=== PATIENT | female | born 1955 | race Caucasian/White ===

== ENCOUNTER 2019-10-16 08:38 | Outpatient (CLI) | payer MEDICARE, BC, SELFPAY ==
--- NOTE | ~2019-10-16 | CT_ITS ---
EXAMINATION: CTA brain DATE: 10/16/2019 09:33 INDICATION: Headache. TECHNIQUE: Computed tomographic angiography (CTA) of the head was performed without and with 100 mL O mnipaque-350 intravenous contrast. Automated exposure control and iterative reconstruction technique were employed. The dose-length product was 1002.72 mGy-cm. Maximum intensity projection 3D reconstru ctions were created. Volume-rendered 3D reconstructions of the intracranial arteries were created by the technologist on a separate workstation. COMPARISON: Head CT 03/16/2014 FINDINGS: There is no intracranial hemorrhage, acute infarction, or abnormal intracranial mass lesion . The ventricles are normal in size. The paranasal sinuses are clear. There are likely changes of ocu lar lens replacement surgeries. The mastoid air cells are normal. Right vertebral artery is dominant. There is no significant stenosis of basilar artery or the posterior cerebral arteries. There is no s ignificant stenosis of the intracranial internal carotid arteries or anterior or middle cerebral roselyn carmen. Anterior communicating artery is normal. The posterior communicating arteries are normal. There is no aneurysm. IMPRESSION: 1. Normal brain. No aneurysm or significant intracranial arterial stenosis. Reviewed, dictated and finalized at location A.
[2019-10-16 09:17] LABS: Estimated Glomerular Filt Rate > 60
== END 2019-10-16 08:39 | disposition home or self-care (01) ==
PROVIDERS: PCP Internal Medicine; Visit Provider Psychiatry & Neurology Neurology
DX: R51 Headache (principal)
CPT/HCPCS: 36415; 70496; Q9967

== ENCOUNTER 2022-10-05 09:00 | Outpatient (NON) | payer MEDICARE, BC, SELFPAY | END 2022-10-05 09:01 | disposition home or self-care (01) | LOC: ANHLAB 10-06 09:21 | PROVIDERS: PCP Internal Medicine; Visit Provider Internal Medicine Gastroenterology | DX: K21.9 Gastro-esophageal reflux disease without esophagitis (principal) | CPT/HCPCS: 88305 ==

== ENCOUNTER 2022-10-05 11:00 | Day surgery (SDC) | payer MEDICARE, BC, SELFPAY ==
[2022-09-26 14:52] VITALS: BMI 33.8
[2022-10-03 08:39] VITALS: BMI 33.2
--- NOTE | 2022-10-04 13:53 | PM.HPGS ---
History of Present Illness History of Present Illness Consent: Risks, benefits, and alternatives have been discussed and questions answered. Patient agrees to proceed with procedure. Chief complaint: Dysphagia, Esophageal Obstruction, Gerd Narrative: Sunshine Wick is a 67 year old female known to have esophageal stricture which has required dilatation on several occasions most recently a little over 3 years ago. Review of Systems Review of Systems: All systems reviewed & are unremarkable except as noted in HPI and below PMFSH Past Medical History Medical History COPD (chronic obstructive pulmonary disease) Diabetes mellitus Eroded bladder suspension mesh GERD (gastroesophageal reflux disease) HTN (hypertension) Surgical History Surgical History H/O ovarian cystectomy H/O tubal ligation H/O: hysterectomy History of orthopedic surgery History of total abdominal hysterectomy Family History Family History Mother Hypertension Depression Diabetes mellitus Osteoporosis Social History Social History Smoking status: Never smoker Second hand tobacco smoke exposure: No Alcohol intake: never Substance use: never Substance use type: does not use Living arrangements: with family Gender identity (if verbalized by the patient): Female Spiritual care concerns: No Meds Home Medications and Allergies Home Medications Medication Instructions Recorded Confirmed Type albuterol sulfate 0.63 mg/3 mL 0.63 mg inhalation Q4-6H 08/26/22 10/05/22 History solution for nebulization atenolol 50 mg tablet 100 mg PO DAILY 08/26/22 10/05/22 History kurljunzfa-qjpfcixdjpyni-nhmqhjiw 1 tablet PO Q6H PRN Migraine 08/26/22 10/05/22 History 50 mg-325 mg-40 mg tablet Headache calcium phosphate-vitamin D3 600 1 tablet PO DAILY 08/26/22 10/05/22 History mg-125 unit tablet multivitamin 1 tablet PO DAILY 08/26/22 10/05/22 History multivitamin with folic acid 400 1 tablet PO DAILY 08/26/22 10/05/22 History mcg tablet (Tab-A-Parker) omeprazole 40 mg capsule,delayed 40 mg PO DAILY 08/26/22 10/05/22 History release pioglitazone 30 mg tablet 30 mg PO DAILY 08/26/22 10/05/22 History tramadol 50 mg tablet 50 mg PO Q6H PRN Migraine Headache 08/26/22 10/05/22 History trazodone 50 mg tablet 50 mg PO QHS 08/26/22 10/05/22 History venlafaxine 150 mg 150 mg PO QAM 08/26/22 10/05/22 History capsule,extended release 24 hr Allergies Allergy/AdvReac Type Severity Reaction Status Date / Time ciprofloxacin Allergy Intermediate HIVES Verified 10/03/22 08:39 Penicillins Allergy Unknown Rash Verified 10/03/22 08:39 CIPROFLOXACIN HCL Allergy Intermediate HIVES Uncoded 03/16/14 13:23 AMOXICILLIN TRIHYDRATE Allergy Unknown Rash Uncoded 09/07/22 14:58 CEPHALEXIN MONOHYDRATE Allergy Unknown Rash Uncoded 09/07/22 14:58 POTASSIUM CLAVULANATE Allergy Unknown Rash Uncoded 09/07/22 14:58 Exam Const: General: alert Orientation/consciousness: patient oriented x3 Resp: Auscultation: clear to auscultation bilaterally Cardio: Rhythm: regular rhythm GI: GI Palp: Yes Soft to palpation and No Tenderness to palpation present (GI) Neuro: General: patient oriented x3 Assessment and Plan Assessment and plan (1) Dysphagia: Code(s): R13.10 - Dysphagia, unspecified Status: Acute Assessment and Plan: EGD with possible biopsy or dilatation or cautery.
--- NOTE | 2022-10-04 15:16 | WPDANESEPPF ---
Anes - Initial Pre Proc Eval Procedure: Operation Date: 10/05/22 13:00 Proposed Procedures p Esophagogastroduodenoscopy - Darrel Waller MD Date/Time: 10/04/22 15:16 Surgeon: Darrel Waller MD Pre Op Diagnosis: Dysphagia, Esophageal Obstruction, Gerd Patient Data Age: 67 Gender: F Height: 1.65 m Weight: 90.5 kg Allergies Allergy/AdvReac Type Severity Reaction Status Date / Time ciprofloxacin Allergy Intermediate HIVES Verified 10/03/22 08:39 Penicillins Allergy Unknown Rash Verified 10/03/22 08:39 CIPROFLOXACIN HCL Allergy Intermediate HIVES Uncoded 03/16/14 13:23 AMOXICILLIN TRIHYDRATE Allergy Unknown Rash Uncoded 09/07/22 14:58 CEPHALEXIN MONOHYDRATE Allergy Unknown Rash Uncoded 09/07/22 14:58 POTASSIUM CLAVULANATE Allergy Unknown Rash Uncoded 09/07/22 14:58 Home Medications Medication Instructions Recorded Confirmed Type albuterol sulfate 0.63 mg/3 mL 0.63 mg inhalation Q4-6H 08/26/22 10/05/22 History solution for nebulization atenolol 50 mg tablet 100 mg PO DAILY 08/26/22 10/05/22 History tjiqkmzyzl-tsejoqkfshvfz-gmqlwgkn 1 tablet PO Q6H PRN Migraine 08/26/22 10/05/22 History 50 mg-325 mg-40 mg tablet Headache calcium phosphate-vitamin D3 600 1 tablet PO DAILY 08/26/22 10/05/22 History mg-125 unit tablet multivitamin 1 tablet PO DAILY 08/26/22 10/05/22 History multivitamin with folic acid 400 1 tablet PO DAILY 08/26/22 10/05/22 History mcg tablet (Tab-A-Parker) omeprazole 40 mg capsule,delayed 40 mg PO DAILY 08/26/22 10/05/22 History release pioglitazone 30 mg tablet 30 mg PO DAILY 08/26/22 10/05/22 History tramadol 50 mg tablet 50 mg PO Q6H PRN Migraine Headache 08/26/22 10/05/22 History trazodone 50 mg tablet 50 mg PO QHS 08/26/22 10/05/22 History venlafaxine 150 mg 150 mg PO QAM 08/26/22 10/05/22 History capsule,extended release 24 hr Patient hx anesthesia problems: none Family hx anesthesia problems: none Results Review: All pre-operative results and documents have been reviewed as part of the pre-operative evaluation. [facility] Past Medical History Medical History COPD (chronic obstructive pulmonary disease) Diabetes mellitus Eroded bladder suspension mesh GERD (gastroesophageal reflux disease) HTN (hypertension) Surgical History Surgical History H/O ovarian cystectomy H/O tubal ligation H/O: hysterectomy History of orthopedic surgery History of total abdominal hysterectomy Family History Family History Mother Hypertension Depression Diabetes mellitus Osteoporosis Social History Social History Smoking status: Never smoker Second hand tobacco smoke exposure: No Alcohol intake: never Substance use: never Substance use type: does not use Living arrangements: with family Gender identity (if verbalized by the patient): Female Spiritual care concerns: No Anes - Eval Final PreProcedure Day of Procedure 10/04/22 15:16 Patient weight: obese Heart: regular rate and rhythm Lungs: clear to auscultation Airway: Mallampati scale class II Neurological: alert and oriented Last oral intake: >/= 8 hours ASA classification: III Emergent: no Anesthetic plan: proceed Anesthesia type and monitoring: general GIVS and standard monitoring Results Review: All pre-operative results and documents have been reviewed as part of the pre-operative evaluation. Informed Consent: The patient's anesthetic plan and its attendant risks and benefits were discussed with the patient/family/POA. Questions were solicited and answers provided to the satisfaction of the patient/family/POA.
[2022-10-05 11:45] VITALS: BP 148/113; PULSE 71; RESP 18; TEMP 36.3; O2SAT 99; BMI 33.2
[2022-10-05] MEDS: LACTATED RINGERS 1,000 ML 150 ML IV CONT (12:06)
[2022-10-05 12:08] LABS: Glucose Point of Care 139 mg/dl (65-105)
[2022-10-05 13:42] VITALS: BP 130/65; PULSE 66; RESP 14; O2SAT 98
[2022-10-05 13:52] VITALS: BP 121/80; PULSE 58; RESP 16; O2SAT 96
[2022-10-05 14:02] VITALS: BP 169/85; PULSE 60; RESP 18; O2SAT 98
--- NOTE | 2022-10-05 14:32 | WPDANESPN ---
Anes - Prog Note Post-Op Date/Time: 10/05/22 14:32 Cardiovascular status: normal Respiratory status: normal Airway patency: baseline Mental status: baseline Post-Op hydration status: normal Vital Signs: Last Vital Signs Temp 36.3 C L 10/05/22 11:45 Pulse 60 10/05/22 14:02 Resp 18 10/05/22 14:02 BP 169/85 H 10/05/22 14:02 Pulse Ox 98 10/05/22 14:02 O2 Del Method Room Air 10/05/22 14:02 Pain Score (VAS): 0 I/O: Intake & Output 10/04/22 10/05/22 10/05/22 23:59 07:59 15:59 Intake Total 940 Balance 940 10/05/22 12:04 POC Capillary Glucose 139 H Post-procedural complaints: none Patient Feedback: Patient satisfied with anesthetic care. Other Findings: Patient vital signs back to baseline. Patient denies nausea and vomiting. Patient's pain under control. Patient OK for discharge.
== END 2022-10-05 14:25 | disposition home or self-care (01) ==
PROVIDERS: PCP Internal Medicine; Visit Provider Internal Medicine Gastroenterology
PROC: 0DJ08ZZ Inspection of Upper Intestinal Tract, Via Natural or Artificial Opening Endoscopic (ICD-10-PCS; CPT 43235; principal; 2022-10-05 13:00)
DX: R13.10 Dysphagia, unspecified (principal)
CPT/HCPCS: 43249; 43239

== ENCOUNTER 2023-06-15 07:30 | Day surgery (SDC) | payer MEDICARE, BC, SELFPAY ==
[2023-06-02 13:25] VITALS: BMI 33.8
--- NOTE | 2023-06-14 07:18 | WPDANESEPPF ---
Anes - Initial Pre Proc Eval Procedure: Operation Date: 06/15/23 09:30 Proposed Procedures p Esophagogastroduodenoscopy - Darrel Waller MD Date/Time: 06/14/23 07:18 Surgeon: Darrel Waller MD Pre Op Diagnosis: Dysphagia Patient Data Age: 67 Gender: F Height: 1.65 m Weight: 92.079 kg Allergies Allergy/AdvReac Type Severity Reaction Status Date / Time ciprofloxacin Allergy Intermediate HIVES Verified 06/15/23 08:18 Penicillins Allergy Unknown Rash Verified 06/15/23 08:18 CIPROFLOXACIN HCL Allergy Intermediate HIVES Uncoded 06/15/23 08:18 AMOXICILLIN TRIHYDRATE Allergy Unknown Rash Uncoded 06/15/23 08:18 CEPHALEXIN MONOHYDRATE Allergy Unknown Rash Uncoded 06/15/23 08:18 POTASSIUM CLAVULANATE Allergy Unknown Rash Uncoded 06/15/23 08:18 Home Medications Medication Instructions Recorded Confirmed Type albuterol sulfate 0.63 mg/3 mL 0.63 mg inhalation Q4-6H 08/26/22 06/15/23 History solution for nebulization atenolol 50 mg tablet 100 mg PO DAILY 08/26/22 06/15/23 History xvzyglaiac-mapzjtpncuenl-vbrfzauw 1 tablet PO Q6H PRN Migraine 08/26/22 06/15/23 History 50 mg-325 mg-40 mg tablet Headache calcium phosphate-vitamin D3 600 1 tablet PO DAILY 08/26/22 06/15/23 History mg-125 unit tablet multivitamin 1 tablet PO DAILY 08/26/22 06/15/23 History multivitamin with folic acid 400 1 tablet PO DAILY 08/26/22 06/15/23 History mcg tablet (Tab-A-Parker) omeprazole 40 mg capsule,delayed 40 mg PO DAILY 08/26/22 06/15/23 History release pioglitazone 30 mg tablet 30 mg PO DAILY 08/26/22 06/15/23 History tramadol 50 mg tablet 50 mg PO Q6H PRN Migraine Headache 08/26/22 06/15/23 History trazodone 50 mg tablet 50 mg PO QHS 08/26/22 06/15/23 History venlafaxine 150 mg 150 mg PO QAM 08/26/22 06/15/23 History capsule,extended release 24 hr diclofenac sodium 75 mg 75 mg PO BID 06/05/23 06/15/23 History tablet,delayed release losartan 50 mg tablet 50 mg PO DIRECTED 06/05/23 06/15/23 History sulfasalazine 500 mg 500 mg PO DIRECTED 06/05/23 06/15/23 History tablet,delayed release Patient hx anesthesia problems: none Family hx anesthesia problems: none Results Review: All pre-operative results and documents have been reviewed as part of the pre-operative evaluation. [facility] Past Medical History Medical History COPD (chronic obstructive pulmonary disease) Diabetes mellitus Eroded bladder suspension mesh GERD (gastroesophageal reflux disease) HTN (hypertension) Surgical History Surgical History H/O ovarian cystectomy H/O tubal ligation H/O: hysterectomy History of orthopedic surgery History of total abdominal hysterectomy Family History Family History Mother Hypertension Depression Diabetes mellitus Osteoporosis Social History Social History Smoking status: Never smoker Second hand tobacco smoke exposure: No Alcohol intake: never Substance use: current Substance use type: marijuana Other substance usage details: daily Living arrangements: with family Gender identity (if verbalized by the patient): Female Spiritual care concerns: No Anes - Eval Final PreProcedure Day of Procedure 06/14/23 07:18 Patient weight: obese Heart: regular rate and rhythm Lungs: clear to auscultation Airway: Mallampati scale class II Neurological: alert and oriented Last oral intake: >/= 8 hours ASA classification: III Emergent: no Anesthetic plan: proceed Anesthesia type and monitoring: general GIVS and standard monitoring Results Review: All pre-operative results and documents have been reviewed as part of the pre-operative evaluation. Informed Consent: The patient's anesthetic plan and its attendant risks and benefits were discussed with the patient/family/P
--- NOTE | 2023-06-14 13:17 | PM.HPGS ---
History of Present Illness History of Present Illness Consent: Risks, benefits, and alternatives have been discussed and questions answered. Patient agrees to proceed with procedure. Chief complaint: Dysphagia Narrative: Sunshine Wick is a 67 year old female with dysphagia. She is known to have an esophageal stricture. She was last dilated about 7 months ago up to 18 mm. She did well for while but is now having dysphagia again. Review of Systems Review of Systems: All systems reviewed & are unremarkable except as noted in HPI and below PMFSH Past Medical History Medical History COPD (chronic obstructive pulmonary disease) Diabetes mellitus Eroded bladder suspension mesh GERD (gastroesophageal reflux disease) HTN (hypertension) Surgical History Surgical History H/O ovarian cystectomy H/O tubal ligation H/O: hysterectomy History of orthopedic surgery History of total abdominal hysterectomy Family History Family History Mother Hypertension Depression Diabetes mellitus Osteoporosis Social History Social History Smoking status: Never smoker Second hand tobacco smoke exposure: No Alcohol intake: never Substance use: current Substance use type: marijuana Other substance usage details: daily Living arrangements: with family Gender identity (if verbalized by the patient): Female Spiritual care concerns: No Meds Home Medications and Allergies Home Medications Medication Instructions Recorded Confirmed Type albuterol sulfate 0.63 mg/3 mL 0.63 mg inhalation Q4-6H 08/26/22 06/15/23 History solution for nebulization atenolol 50 mg tablet 100 mg PO DAILY 08/26/22 06/15/23 History sevycottqn-swcdmtslpxgyr-tkqkrngk 1 tablet PO Q6H PRN Migraine 08/26/22 06/15/23 History 50 mg-325 mg-40 mg tablet Headache calcium phosphate-vitamin D3 600 1 tablet PO DAILY 08/26/22 06/15/23 History mg-125 unit tablet multivitamin 1 tablet PO DAILY 08/26/22 06/15/23 History multivitamin with folic acid 400 1 tablet PO DAILY 08/26/22 06/15/23 History mcg tablet (Tab-A-Parker) omeprazole 40 mg capsule,delayed 40 mg PO DAILY 08/26/22 06/15/23 History release pioglitazone 30 mg tablet 30 mg PO DAILY 08/26/22 06/15/23 History tramadol 50 mg tablet 50 mg PO Q6H PRN Migraine Headache 08/26/22 06/15/23 History trazodone 50 mg tablet 50 mg PO QHS 08/26/22 06/15/23 History venlafaxine 150 mg 150 mg PO QAM 08/26/22 06/15/23 History capsule,extended release 24 hr diclofenac sodium 75 mg 75 mg PO BID 06/05/23 06/15/23 History tablet,delayed release losartan 50 mg tablet 50 mg PO DIRECTED 06/05/23 06/15/23 History sulfasalazine 500 mg 500 mg PO DIRECTED 06/05/23 06/15/23 History tablet,delayed release Allergies Allergy/AdvReac Type Severity Reaction Status Date / Time ciprofloxacin Allergy Intermediate HIVES Verified 06/15/23 08:18 Penicillins Allergy Unknown Rash Verified 06/15/23 08:18 CIPROFLOXACIN HCL Allergy Intermediate HIVES Uncoded 06/15/23 08:18 AMOXICILLIN TRIHYDRATE Allergy Unknown Rash Uncoded 06/15/23 08:18 CEPHALEXIN MONOHYDRATE Allergy Unknown Rash Uncoded 06/15/23 08:18 POTASSIUM CLAVULANATE Allergy Unknown Rash Uncoded 06/15/23 08:18 Exam Const: General: alert Orientation/consciousness: patient oriented x3 Resp: Auscultation: clear to auscultation bilaterally Cardio: Rhythm: regular rhythm GI: GI Palp: Yes Soft to palpation and No Tenderness to palpation present (GI) Neuro: General: patient oriented x3 Assessment and Plan Assessment and plan (1) Dysphagia: Code(s): R13.10 - Dysphagia, unspecified Status: Acute Assessment and Plan: EGD with possible biopsy or dilatation or cautery.
[2023-06-15 08:29] VITALS: BMI 34.0
[2023-06-15 08:31] VITALS: BP 150/96; PULSE 72; RESP 16; TEMP 36.7; O2SAT 98
[2023-06-15] MEDS: LACTATED RINGERS 1,000 ML 150 ML IV CONT (08:43)
[2023-06-15 08:45] LABS: Glucose Point of Care 141 mg/dl (65-105)
[2023-06-15 09:10] VITALS: BP 130/51; PULSE 71; RESP 18; O2SAT 100
[2023-06-15 09:20] VITALS: BP 126/76; PULSE 61; RESP 20; O2SAT 100
[2023-06-15 09:30] VITALS: BP 120/80; PULSE 65; RESP 20; O2SAT 100
--- NOTE | 2023-06-15 11:49 | WPDANESPN ---
Anes - Prog Note Post-Op Date/Time: 06/15/23 11:49 Vital Signs: Last Vital Signs Temp 36.7 C 06/15/23 08:31 Pulse 65 06/15/23 09:30 Resp 20 06/15/23 09:30 BP 120/80 06/15/23 09:30 Pulse Ox 100 06/15/23 09:30 O2 Del Method Room Air 06/15/23 09:30 Pain Score (VAS): 0 I/O: Intake & Output 06/14/23 06/15/23 06/15/23 23:59 07:59 15:59 Intake Total 300 Balance 300 06/15/23 08:41 POC Capillary Glucose 141 H Patient Feedback: Patient satisfied with anesthetic care.
== END 2023-06-15 09:40 | disposition home or self-care (01) ==
PROVIDERS: PCP Internal Medicine; Visit Provider Internal Medicine Gastroenterology
PROC: 0DJ08ZZ Inspection of Upper Intestinal Tract, Via Natural or Artificial Opening Endoscopic (ICD-10-PCS; CPT 43235; principal; 2023-06-15 09:30)
DX: R13.19 Other dysphagia (principal); K22.2 Esophageal obstruction; K44.9 Diaphragmatic hernia without obstruction or gangrene
CPT/HCPCS: 43249; 43239

== ENCOUNTER 2024-10-09 00:33 | Day surgery (SDC) | payer MEDICARE, BC, SELFPAY ==
[2024-09-16 12:19] VITALS: BMI 35.8
--- OUTSIDE RECORDS SUMMARY | 2024-10-09 00:37 | XMS_ITS | Clinical Summary ---
Author Organization [facility] Address [address] [place] [address] Phone Care Team Providers Care Workflow Developer Name Role Phone Miguel Beltre MD Primary Care Provider [phone] Allergies Active Allergy Reactions Criticality Noted Date Comments Ciprofloxacin Fever Medium 05/19/2016 Fever/ hives Cephalexin Diarrhea Low 12/24/2018 Penicillins Rash Medium 03/22/2016 High fever, Poison Alivia Extract Itching High 12/24/2018 Poison [place] Extract Itching High 12/24/2018 Poison [place] Extract Itching High 12/24/2018 Medications atenolol (TENORMIN) 100 mg tablet daily 7 Active traMADol (ULTRAM) 50 mg tablet Take 50 mg by mouth every 6 (six) hours as needed for pain Active trimethoprim-po lymyxin B (POLYTRIM) ophthalmic solution polymyxin B sulfate 10,000 unit-trimethopr im 1 mg/mL eye drops Active traZODone (DESYREL) 50 mg tablet Take 1 tablet (50 mg total) by mouth nightly 4 Active venlafaxine XR (EFFEXOR-XR) 150 mg 24 hr capsule Take 1 capsule (150 mg total) by mouth daily 4 Active folic acid (FOLVITE) 1 mg tablet Take 1 tablet (1,000 mcg total) by mouth daily 4 Active fluticasone propionate (FLONASE) 50 mcg/actuation nasal spray Administer 2 sprays into each nostril daily 4 Active cyclobenzaprine (FLEXERIL) 10 mg tablet Take 1 tablet (10 mg total) by mouth 3 (three) times a day as needed 4 Active cholecalciferol (VITAMIN D-3) 1,000 unit capsule Take 1 capsule (1,000 Units total) by mouth daily 4 Active magnesium gluconate 200 mg tablet Take 1 tablet (200 mg total) by mouth 2 (two) times a day 180 tablet 1 4 Active albuterol HFA (ProAir HFA) 90 mcg/actuation inhaler Inhale 2 puffs every 4 (four) hours as needed for wheezing or shortness of breath 8.5 g 5 4 04/30/[address] (VOLTAREN) 75 mg EC tablet Take 1 tablet (75 mg total) by mouth 2 (two) times a day 180 tablet 4 Active sulfaSALAzine EN (AZULFIDINE EN) 500 mg EC tablet Take 1 tablet (500 mg total) by mouth 2 (two) times a day 180 tablet 1 4 Active fluticasone furoate-vilante roL (Breo Ellipta) 100-25 mcg/dose diskus inhaler Inhale 1 puff daily Rinse mouth with water after use. Do not swallow. 60 each 2 4 Active omeprazole (PriLOSEC) 40 mg capsule Take 1 capsule by mouth once daily 90 capsule 4 Active pioglitazone (ACTOS) 30 mg tablet Take 1 tablet (30 mg total) by mouth daily 90 tablet 2 5 Active Active Problems Problem Noted Date Diagnosed Date Encounter for screening colonoscopy 04/30/2024 Chronic left shoulder pain 01/24/2024 Tinnitus, bilateral 03/25/2021 Otalgia, left 03/25/2021 Overweight with body mass index (BMI) 25.0-29.9 02/12/2019 Acute urinary tract infection 02/12/2019 Anogenital herpesviral infection 02/12/2019 Bacterial vaginosis 02/12/2019 Breast lump 02/12/2019 Candidiasis 02/12/2019 Chronic obstructive lung disease 02/12/2019 Assessment & Plan (09/03/2024 11:43 AM SULFONATION EQUIPMENT OPERATOR): stable Assessment & Plan (04/30/2024 12:25 PM CDT): Add Breo inhaler. Assessment & Plan (01/24/2024 11:00 AM CDT): stable Chronic sciatica 02/12/2019 Diabetic peripheral neuropathy (CMS/HCC) 019 Essential hypertension 02/12/2019 Assessment & Plan (09/03/2024 11:43 AM SULFONATION EQUIPMENT OPERATOR): Stable, doing well Assessment & Plan (04/30/2024 12:25 PM CDT): BP at target. Assessment & Plan (01/24/2024 11:01 AM CDT): Bp at target Gastroesophageal reflux disease 02/12/2019 Assessment & Plan (04/30/2024 12:25 PM CDT): Stable. No sentinel symptoms Hyperlipidemia 02/12/2019 Assessment & Plan (04/30/2024 12:25 PM CDT): Stable doing well. Insomnia 02/12/2019 Assessment & Plan (01/24/2024 11:01 AM CDT): Continue medication Lumbar spondylosis 02/12/2019 Menopausal flushing 02/12/2019 Menopausal syndrome 02/12/2019 Recurrent urinary tract infection 02/12/2019 Vaginal discharge 02/12/2019 Migraine 10/04/2018 Fecal incontinence 03/13/2018 IBS (irritable bowel syndrome) 03/13/2018 Primary osteoarthritis involving multiple joints 08/28/2017 Assessment & Plan (09/03/2024 11:44 AM SULFONATION EQUIPMENT OPERATOR): Has follow up with ortho Asthma 08/28/2017 Fibromyalgia 08/28/2017 Bladder prolapse, female, acquired 08/28/2017 Rotator cuff syndrome 08/28/2017 Lumbar spinal stenosis 08/28/2017 Macular degeneration 08/28/2017 Type 2 diabetes mellitus with peripheral neuropa thy 08/27/2017 Assessment & Plan (09/03/2024 11:44 AM SULFONATION EQUIPMENT OPERATOR): Doing well Assessment & Plan (01/24/2024 11:00 AM CDT): Stable, A1c victor manuel maria Hx of fracture of humerus 08/27/2017 Hx of fracture of wrist 08/27/2017 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 Nocturia 04/13/2016 Urinary frequency 04/13/2016 Urinary urgency 04/13/2016 Vaginal vault prolapse 03/31/2016 Encounters Date Type Department Care Team Description 09/03/2024 11:15 AM SULFONATION EQUIPMENT OPERATOR Office Visit [facility] [address] [place] [address] Miguel Beltre MD Type 2 diabetes mellitus without complication, without long-term current use of insulin (CMS/HCC) (HCC) (Primary Dx); Type 2 diabetes mellitus with peripheral neuropathy (HCC); Primary osteoarthritis involving multiple joints; Chronic bronchitis, unspecified chronic bronchitis type (HCC); Essential hypertension from Last 3 Months Immunizations Immunization Administration Dates Next Due DTaP, Unspecified 08/07/2015 Influenza, Quad, Adjuvantate d, Intramuscular 07/14/2023,05/24/2022,05/01/2021 Influenza, Quadrivalent, Hig h Dose, Preservative Free, Intrr 04/11/2020 Influenza, Quadrivalent, Spl it, Intramuscular 06/14/2019,05/08/2017,10/13/2016 Influenza, Trivalent, High D ose, Split, Preservative Free, Intramuscular 04/18/2024 Influenza, Trivalent, Preser vative Free, Intramuscular 05/24/2015 Influenza, Unspecified 04/07/2017 Pneumococcal Conjugate PCV 13 05/24/2015 Pneumococcal Polysaccharide PPV23 10/27/2021 RSV, Bivalent, Protein Subun it Rsvpref, Diluent (Abrysvo) 07/14/2023 Tdap 04/18/2024,06/07/2015 ZOSTER LIVE 06/07/2015 ZOSTER Recombinant 04/11/2020 Surgical History Surgery Date Site/Laterality Comments FRACTURE SURGERY BLADDER REPAIR Medical History Medical History Date Comments Asthma Hypertension Diabetes mellitus (HCC) Hyperlipidemia Arthritis DJD (degenerative joint disease) COPD (chronic obstructive pulmonary disease) (HC C) Family History Medical History Relation Name Comments Diabetes Father Heart disease Father Hyperlipidemia Father Hypertension Father Pancreatic cancer Father Diabetes Mother Heart disease Mother Hyperlipidemia Mother Hypertension Mother Relation Name Status Comments Father Mother Social History Tobacco Use Types Packs/Day Years Used Date Smoking Tobacco: Never Smokeless Tobacco: Never Tobacco Cessation:Counseling Given: Not Answered Alcohol Use Standard Drinks/Week Comments Not Currently 0 (1 standard drink = 0.6 oz pur e alcohol) Comments No Sex and Gender Information Value Date Recorded Sex Assigned at Not on file Legal Sex Female 12:13 AM SULFONATION EQUIPMENT OPERATOR Gender Identity Not on file Sexual Orientation Not on file Obstetrics History Last Filed Vital Signs Vital Sign Reading Time Taken Comments Blood Pressure 149/91 09/03/2024 11:05 AM SULFONATION EQUIPMENT OPERATOR Pulse 66 09/03/2024 11:05 AM SULFONATION EQUIPMENT OPERATOR Temperature 36.6 C (97.9 F) 12/24/2018 1:22 PM CDT Respiratory Rate 18 12/24/2018 5:10 PM CDT Oxygen Saturation 100% 12/24/2018 5:10 PM CDT Inhaled Oxygen Concentration - - Weight 96.6 kg (213 lb) 09/03/2024 11:05 AM SULFONATION EQUIPMENT OPERATOR Height 165.1 cm (5' 5 ) 09/03/2024 11:05 AM SULFONATION EQUIPMENT OPERATOR Body Mass Index 35.45 09/03/2024 11:05 AM SULFONATION EQUIPMENT OPERATOR Plan of Treatment Scheduled Procedures Name Priority Associated Diagnoses Date/Ti me COLONOSCOPY Open Access Encounter for screening colonoscopy Health Maintenance Due Date Last Done Comments Colon Cancer Screening-Colonoscopy 1955 Hepatitis C Screening 1955 Osteoporosis Screening-Bone Density Scan 1955 Dilated Eye Exam 1955 Hepatitis B Screening 1971 Well Visit 65+ 2018 Depression Screening 08/28/2018 08/28/2017 Fall Risk Assessment 08/28/2018 08/28/2017 Foot Exam 08/28/2018 08/28/2017 Zoster Vaccine (3 of 3) 06/06/2020 04/11/2020, 06/07 Covid-19 Vaccine ( season) 2024 04/18/2024, 07/14/2023, 05/24/2022, Additional history exists Breast Cancer Screening-Mammogram 10/30/2024 11/12/2019, 08/14/2014 Postponed from 11/11/2020 (Patient declined, but will receive in the future) Albumin Creatinine Ratio, Urine 01/23/2025 01/24/2024 Lipid Panel 01/23/2025 01/24/2024 eGFR 01/23/2025 01/24/2024 Hemoglobin A1C 03/03/2025 09/03/2024, 04/08, 01/24/2024 DTaP/Tdap/Td Vaccine (4 - Td or Tdap) 04/18/2034 04/18/2024, 08/07/2015, 06/07/2015 Pneumococcal vaccine 65+ Completed 10/27/2021, 05/07 Influenza Vaccine Completed 04/18/2024, , 05/24/2022, Additional history exists Procedures Procedure Name Priority Date/Time Associated Diagnosis Comments POCT HEMOGLOBIN A1C Routine 09/03/2024 11:07 AM SULFONATION EQUIPMENT OPERATOR Type 2 diabetes mellitus without complication, without long-term current use of insulin ([facility] ([facility]) ALBUMIN CREATININE RATIO, URINE Routine 01/24/2024 11:15 AM CDT Type 2 diabetes mellitus without complication, without long-term current use of insulin (CMS/HCC) ([facility]) Encounter for lipid screening for cardiovascular disease Type 2 diabetes mellitus with peripheral neuropathy (CMS/HCC) ([facility]) Essential hypertension Chronic bronchitis, unspecified chronic bronchitis type ([facility]) Primary insomnia COMPREHENSIVE METABOLIC PANEL Routine 01/24/2024 11:09 AM CDT Type 2 diabetes mellitus without complication, without long-term current use of insulin (CMS/HCC) ([facility]) Encounter for lipid screening for cardiovascular disease Type 2 diabetes mellitus with peripheral neuropathy (CMS/HCC) ([facility]) Essential hypertension Chronic bronchitis, unspecified chronic bronchitis type ([facility]) Primary insomnia POCT LIPID PANEL Routine 01/24/2024 10:32 AM CDT Encounter for lipid screening for cardiovascular disease DIAGNOSTIC MAMMOGRAM BILATERAL W DARWIN Schedule Routine, Read Routine (OP Routine) 11/12/2019 10:04 AM CDT Lump of left breast from Last 3 Months or Most Recently Relevant to Health Maintenance Results * (ABNORMAL) POCT hemoglobin A1c (09/03/2024 11:07 AM SULFONATION EQUIPMENT OPERATOR) Pathologist [facility] Hemoglobin A1C, POC 5.9 4.0 - 5.6 % Blood 09/03/2024 11:0 7 AM SULFONATION EQUIPMENT OPERATOR Miguel Beltre MD POINT OF CARE TEST ORDERABLES Final Result * Albumin Creatinine Ratio, Urine (01/24/2024 11:15 AM CDT) Pathologist [facility] Creatinine ur 101.7 Not Estab. mg/dL [facility] - 01 Microalbumin, ur 6.9 Not Estab. ug/mL [facility] - 01 Microalbumin/cre at ratio 7 0 - 29 mg/g creat [facility] - 01 Comment: Normal: 0 - 29 Moderately increased: 30 - 300 Severely increased: >300 Urine 01/24/2024 11:1 5 AM CDT 01/24/2024 Narrative [facility] - 01/25/2024 3:35 AM CDT Performed at: - [facility] [id number] Programmer: Kan Keane PhD, Phone: [phone] Miguel Beltre MD LAB URINE ORDERABLES Final Re sult [facility] - 01 * (ABNORMAL) Comprehensive metabolic panel (01/24/2024 11:09 AM CDT) Pathologist [facility] Glucose 141(H) 70 - 99 mg/dL [facility] - 01 BUN 20 8 - 27 mg/dL [facility] - 01 Creatinine, Serum 0.90 0.57 - 1.00 mg/dL [facility] - 01 eGFR 69 >59 mL/min/1.7 3 [facility] - 01 BUN/creat ratio 22 12 - 28 [facility] - 01 Sodium 140 134 - 144 mmol/L [facility] - 01 Potassium, sr 4.8 3.5 - 5.2 mmol/L [facility] - 01 Chloride 102 96 - 106 mmol/L [facility] - 01 CO2 27 20 - 29 mmol/L [facility] - 01 Calcium 9.5 8.7 - 10.3 mg/dL [facility] - 01 Protein, sr 6.3 6.0 - 8.5 g/dL [facility] - 01 Albumin 3.8(L) 3.9 - 4.9 g/dL [facility] - 01 Globulin, Total 2.5 1.5 - 4.5 g/dL [facility] - 01 Bilirubin, Total 0.4 0.0 - 1.2 mg/dL [facility] - 01 Alk phos 89 44 - 121 IU/L [facility] - 01 AST 30 0 - 40 IU/L [facility] - 01 ALT 28 0 - 32 IU/L [facility] - 01 Blood 01/24/2024 11:0 9 AM CDT 01/24/2024 Narrative [facility] - 01/25/2024 3:35 AM CDT Performed at: [address] [place] [address] [id number] Programmer: Kan Keane PhD, Phone: [phone] Miguel Beltre MD LAB BLOOD ORDERABLES Final Re sult [facility] - 01 * POCT lipid panel (01/24/2024 10:32 AM CDT) Cholesterol, POC 155 mg/dL HDL, POC 45 mg/dL Triglycerides, POC 154 mg/dL LDL Cholesterol POC 79 mg/dL Chol/HDL Ratio, POC 3.4 Non-HDL Cholesterol, POC 110 mg/dL Cholesterol Total, POC 155 mg/dL Capillary blood 01/24/2024 1 0:32 AM CDT Miguel Beltre MD POINT OF CARE TEST ORDERABLES Final Result * Diagnostic Mammogram Bilateral W [place] (11/12/2019 10:04 AM CDT) Anatomical Region Laterality Modality Breast Bilateral Mammography 11/12/2019 10:4 8 AM CDT Impressions 11/12/2019 10:48 AM CDT No suspicious abnormality in EITHER breast, including at the palpable area of concern in the LEFT breast. OVERALL FINAL ASSESSMENT: BI-RADS Category 2: Benign. Continued clinical follow-up is recommended. Annual screening mammography is recommended. Dr. Austin (s) also participated in this examination. Electronically signed by: Ivette Valdez M.D. Narrative 11/12/2019 10:48 AM CDT EXAMINATION: BILATERAL DIGITAL DIAGNOSTIC MAMMOGRAM INCLUDING CAD AND BILATERAL DIGITAL BREAST TOMOSYNTHESIS; LEFT BREAST SONOGRAM HISTORY: 64-year-old woman with a palpable abnormality in the central LEFT breast for approximately one month which has decreased in size, but not completely resolved, since the patient stopped taking hormone replacement therapy on 10/16/2019. COMPARISON: Prior available studies dating back to 09/14/2011. TECHNIQUE: Full field digital mammographic views of BOTH breasts were performed, including computer aided detection (CAD) and BILATERAL digital breast tomosynthesis (DBT). Directed ultrasound evaluation of the LEFT breast was performed by a trained public health nurse and by Dr. Valdez. BREAST PARENCHYMAL COMPOSITION: The breasts are heterogenously dense, which may obscure small masses. MAMMOGRAM FINDINGS: There is no new suspicious abnormality in EITHER breast. Specifically, there is no suspicious abnormality at the palpable area of concern designated by a triangular skin marker. SONOGRAM FINDINGS: Targeted sonogram of the palpable area of concern in the LEFT breast at the 1 o'clock position 2 cm from the nipple was performed. There are dilated ducts without internal debris or masses incidentally noted. No focal abnormal solid or cystic lesion suggestive of malignancy is identified. Directed physical examination of the area of concern performed by Dr. Valdez demonstrates no definite suspicious palpable abnormality at this time. Procedure Note Ivette Valdez MD - 11/12/2019 EXAMINATION: BILATERAL DIGITAL DIAGNOSTIC MAMMOGRAM INCLUDING CAD AND BILATERAL DIGITAL BREAST TOMOSYNTHESIS; LEFT BREAST SONOGRAM HISTORY: 64-year-old woman with a palpable abnormality in the central LEFT breast for approximately one month which has decreased in size, but not completely resolved, since the patient stopped taking hormone replacement therapy on 10/16/2019. COMPARISON: Prior available studies dating back to 09/14/2011. TECHNIQUE: Full field digital mammographic views of BOTH breasts were performed, including computer aided detection (CAD) and BILATERAL digital breast tomosynthesis (DBT). Directed ultrasound evaluation of the LEFT breast was performed by a trained public health nurse and by Dr. Valdez. BREAST PARENCHYMAL COMPOSITION: The breasts are heterogenously dense, which may obscure small masses. MAMMOGRAM FINDINGS: There is no new suspicious abnormality in EITHER breast. Specifically, there is no suspicious abnormality at the palpable area of concern designated by a triangular skin marker. SONOGRAM FINDINGS: Targeted sonogram of the palpable area of concern in the LEFT breast at the 1 o'clock position 2 cm from the nipple was performed. There are dilated ducts without internal debris or masses incidentally noted. No focal abnormal solid or cystic lesion suggestive of malignancy is identified. Directed physical examination of the area of concern performed by Dr. Valdez demonstrates no definite suspicious palpable abnormality at this time. IMPRESSION: No suspicious abnormality in EITHER breast, including at the palpable area of concern in the LEFT breast. OVERALL FINAL ASSESSMENT: BI-RADS Category 2: Benign. Continued clinical follow-up is recommended. Annual screening mammography is recommended. (s)Analy Avila also participated in this examination. Electronically signed by: Ivette Valdez M.D. Marc Salazar MD IMG MAMMO PROCEDURES Final Result from Last 3 Months or Most Recently Relevant to Health Maintenance Insurance MEDICARE [facility] [employer] [facility] MDCR HMO REF MEDICARE SOLUTIONS BLUE TRADITIONAL [employer]OS MED[employer]ARE [employer] MEDICARE SOLUTIONS Care Teams Workflow Developer Relationship Specialty Start Date End Date Miguel Beltre MD [id number] [place] [address] PCP - General Internal Medicine 01/24/24
--- OUTSIDE RECORDS SUMMARY | 2024-10-09 00:37 | XMS_ITS | Referral Summary ---
Author Organization [facility] Address [address] [place] [address] Phone Care Team Providers Care Accounting Manager Name Role Phone Miguel Beltre MD Primary Care Provider [phone] Encounters Date Type Department Care Team Description 09/03/2024 11:15 AM DOLL WIG HACKLER Office Visit [facility] [address] [place] [address] [address] [place] [place] [place] [address] Miguel Beltre MD Type 2 diabetes mellitus without complication, without long-term current use of insulin (CMS/HCC) (HCC) (Primary Dx); Type 2 diabetes mellitus with peripheral neuropathy (HCC); Primary osteoarthritis involving multiple joints; Chronic bronchitis, unspecified chronic bronchitis type (HCC); Essential hypertension from Last 3 Months Allergies Active Allergy Reactions Criticality Noted Date Comments Ciprofloxacin Fever Medium 05/19/2016 Fever/ hives Cephalexin Diarrhea Low 12/24/2018 Penicillins Rash Medium 03/22/2016 High fever, Poison Alivia Extract Itching High 12/24/2018 Poison [place] Extract Itching High 12/24/2018 Poison Sumac Extract [...] 02/12/2019 Assessment & Plan (09/03/2024 11:43 AM DOLL WIG HACKLER): stable Assessment & Plan (04/30/2024 12:25 PM CDT): Add Breo inhaler. Assessment & Plan (01/24/2024 11:00 AM CDT): stable Chronic sciatica 02/12/2019 Diabetic peripheral neuropathy (CMS/HCC) 019 Essential hypertension 02/12/2019 Assessment & Plan (09/03/2024 11:43 AM DOLL WIG HACKLER): Stable, doing well Assessment & Plan (04/30/2024 [...] 08/28/2017 Assessment & Plan (09/03/2024 11:44 AM DOLL WIG HACKLER): Has follow up with ortho Asthma 08/28/2017 Fibromyalgia 08/28/2017 Bladder prolapse, female, acquired 08/28/2017 Rotator cuff syndrome 08/28/2017 Lumbar spinal stenosis 08/28/2017 Macular degeneration 08/28/2017 Type 2 diabetes mellitus with peripheral neuropa thy 08/27/2017 Assessment & Plan (09/03/2024 11:44 AM DOLL WIG HACKLER): Doing well Assessment & Plan (01/24/2024 11:00 AM CDT): Stable, A1c victor manuel maria Hx of fracture of humerus 08/27/2017 Hx of fracture of wrist 08/27/2017 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 Nocturia 04/13/2016 Urinary frequency 04/13/2016 Urinary urgency 04/13/2016 Vaginal vault prolapse 03/31/2016 Immunizations Immunization Administration Dates Next Due DTaP, [...] 04/18/2024,06/07/2015 ZOSTER LIVE 06/07/2015 ZOSTER Recombinant 04/11/2020 Social History Tobacco Use Types Packs/Day Years Used Date Smoking Tobacco: Never Smokeless Tobacco: Never Tobacco Cessation:Counseling Given: Not Answered Alcohol Use Standard Drinks/Week Comments Not Currently 0 (1 standard drink = 0.6 oz pur e alcohol) Comments No Sex and Gender Information Value Date Recorded Sex Assigned at Not on file Legal Sex Female 12:13 AM DOLL WIG HACKLER Gender Identity Not on file Sexual Orientation Not on file Last Filed Vital Signs Vital Sign Reading Time Taken Comments Blood Pressure 149/91 09/03/2024 11:05 AM DOLL WIG HACKLER Pulse 66 09/03/2024 11:05 AM DOLL WIG HACKLER Temperature 36.6 C (97.9 F) 12/24/2018 1:22 PM CDT Respiratory Rate 18 12/24/2018 5:10 PM CDT Oxygen Saturation 100% 12/24/2018 5:10 PM CDT Inhaled Oxygen Concentration - - Weight 96.6 kg (213 lb) 09/03/2024 11:05 AM DOLL WIG HACKLER Height 165.1 cm (5' 5 ) 09/03/2024 11:05 AM DOLL WIG HACKLER Body Mass Index 35.45 09/03/2024 11:05 AM DOLL WIG HACKLER Plan of Treatment Scheduled Procedures Name Priority Associated Diagnoses Date/Ti me COLONOSCOPY Open Access Encounter for screening colonoscopy Procedures Procedure Name Priority Date/Time Associated Diagnosis Comments POCT HEMOGLOBIN A1C Routine 09/03/2024 11:07 AM DOLL WIG HACKLER Type 2 diabetes mellitus without complication, without long-term current use of insulin ([facility]) ([facility]) ALBUMIN CREATININE RATIO, URINE Routine 01/24/2024 11:15 AM CDT Type 2 diabetes mellitus without complication, without long-term current use of insulin (CMS/HCC) ([facility]) Encounter for lipid screening for cardiovascular disease Type 2 diabetes mellitus with peripheral neuropathy (CMS/HCC) ([facility]) Essential hypertension Chronic bronchitis, unspecified chronic bronchitis type (HCC) Primary insomnia COMPREHENSIVE METABOLIC PANEL Routine 01/24/2024 11:09 AM CDT Type 2 diabetes mellitus without complication, without long-term current use of insulin (CMS/HCC) ([facility]) Encounter for lipid screening for cardiovascular disease Type 2 diabetes mellitus with peripheral neuropathy (CMS/HCC) (HCC) Essential hypertension Chronic bronchitis, unspecified chronic bronchitis type (HCC) Primary insomnia POCT LIPID PANEL Routine 01/24/2024 10:32 AM CDT Encounter for lipid screening for cardiovascular disease DIAGNOSTIC MAMMOGRAM BILATERAL W JAMIA Schedule Routine, Read Routine (OP Routine) 11/12/2019 10:04 AM CDT Lump of left breast from Last 3 Months or Most Recently Relevant to Health Maintenance Results * (ABNORMAL) POCT hemoglobin A1c (09/03/2024 11:07 AM DOLL WIG HACKLER) Hemoglobin A1C, POC 5.9 4.0 - 5.6 % Blood 09/03/2024 11:0 7 AM DOLL WIG HACKLER Miguel Beltre MD POINT OF CARE TEST ORDERABLES Final Result * Albumin Creatinine Ratio, Urine (01/24/2024 11:15 AM CDT) Creatinine ur 101.7 Not Estab. mg/dL [facility] - 01 Microalbumin, ur 6.9 Not Estab. ug/mL [facility] - 01 Microalbumin/cre at ratio 7 0 - 29 mg/g creat [facility] - 01 Comment: Normal: 0 - 29 Moderately increased: 30 - 300 Severely increased: >300 Urine 01/24/2024 11:1 5 AM CDT 01/24/2024 Narrative [facility] - 01/25/2024 3:35 AM CDT Performed at: - [facility] [id number] Engagement Engineer: Kan Keane PhD, Phone: [phone] Miguel Beltre MD LAB URINE ORDERABLES Final Re sult [facility] - 01 * (ABNORMAL) Comprehensive metabolic panel (01/24/2024 11:09 AM CDT) Glucose 141(H) 70 - 99 mg/dL [facility] [...] 01/25/2024 3:35 AM CDT Performed at: - [place] [id number] Engagement Engineer: Kan Keane PhD, Phone: [phone] Miguel Beltre MD LAB BLOOD ORDERABLES Final Re sult [facility] - 01 * POCT lipid panel (01/24/2024 10:32 AM CDT) Cholesterol, POC 155 mg/dL HDL, POC 45 mg/dL Triglycerides, POC 154 mg/dL LDL Cholesterol POC 79 mg/dL Chol/HDL Ratio, POC 3.4 Non-HDL Cholesterol, POC 110 mg/dL Cholesterol Total, POC 155 mg/dL Capillary blood 01/24/2024 1 0:32 AM CDT Miguel Beltre MD POINT OF CARE TEST ORDERABLES Final Result * Diagnostic Mammogram Bilateral W Jamia (11/12/2019 10:04 AM CDT) Anatomical Region Laterality Modality Breast Bilateral Mammography 11/12/2019 10:4 8 AM CDT Impressions 11/12/2019 10:48 AM CDT No suspicious abnormality in EITHER breast, including at the palpable area of concern in the LEFT breast. OVERALL FINAL ASSESSMENT: BI-RADS Category 2: Benign. Continued clinical follow-up is recommended. Annual screening mammography is recommended. (linda Avila also participated in this examination. Electronically [...] LEFT breast was performed by a trained underwriting manager and by Dr. Valdez. BREAST PARENCHYMAL COMPOSITION: [...] LEFT breast was performed by a trained underwriting manager and by Dr. Valdez. BREAST PARENCHYMAL COMPOSITION: [...] is recommended. Annual screening mammography is recommended. (linda Avila also participated in this examination. Electronically signed by: Ivette Valdez M.D. Marc Salazar MD IMG MAMMO PROCEDURES Final Result from Last 3 Months or Most Recently Relevant to Health Maintenance Insurance MEDICARE ANTHEM TRADITIONAL Member Subscriber Plan / Payer (Ef fective 2012-Present) Name:Sunshine Wick Relation to Subscriber:Self Name:WickSunshine Payer ID:[id number] (NAIC) Type:[facility] Address: [address] [place] [id number] [employer] [address] [place] [address] MDCR HMO REF MEDICARE SOLUTIONS BLUE TRADITIONAL OOS MEDICARE SOLUTIONS MEDICARE [facility] Care Teams Accounting Manager Relationship Specialty Start Date End Date Miguel Beltre MD [id number] [address] PCP - General Internal Medicine 01/24/24
--- OUTSIDE RECORDS SUMMARY | 2024-10-09 00:38 | XMS_ITS | Data Portability ---
Author Organization [facility] CATHYJess Kady Ely Address [address] [place] [address] Care Team Providers Care Master Dyer Name Role Phone TARUN ANN Primary Care Provider DERECK ALARCON Distance Learning Program Coordinator [phone] Assessment No assessment recorded. Plan of Treatment Reminders Order Date Submit Date Provider Last Modified By Organization Details Last Modified Time Details Appointments None recorded. Lab HbA1c (hemoglobin A1c), blood 2022 023 [facility] [place] In-Office Order, Internal Use Only DO Not Attach Compendium DO Not Attach Compendium, Do Not Delete/merge, [id number] 3 16:05:24 Referral None recorded. Procedures None recorded. Surgeries None recorded. Imaging US, abdomen - Please call patient for apppointmen asha, thanks! 2023 024 [facility] ([facility]), [address] [place], [address], 4 14:23:11 Medication Orders loratadine 10 mg tablet 2022 023 [facility], [address] [place], [address], 3 12:49:30 montelukast 10 mg tablet 2022 023 [facility], [address] [place], [address], 12:49:29 pioglitazon e 30 mg tablet 2022 023 [facility], [address] [place] [address], [address], 17:39:16 atenolol 100 mg tablet 2022 023 [facility], [address] [place] [address], [address], 14:41:34 Patient TargetsNo targets recorded. Patient Instructions Encounter Date Encounter Id Patient Instructions Last Modified By Organization Details Last Modified Time 11/08/2022 [id number] learning about h igh blood pressure si Not available 11/08/2022 14:41:26 chronic obstruct jose pulmonary disease (COPD): care instructions si Not available 11/08/2022 14:41:26 learning about c opd and how to prevent lung infections jhsieh Not available 11/08/2022 14:41:25 high cholesterol : care instructions sieh Not available 11/08/2022 14:41:25 12/12/2022 [id number] gastroesophageal reflux disease (GERD): care instructions sieh Not available 12/12/2022 16:10:35 learning about h igh blood pressure jhsieh Not available 12/12/2022 16:10:35 Rheumatoid Arthr itis (RA): Care Instructions sieh Not available 12/12/2022 16:10:35 06/23/2023 [id number] A healthy lifest yle: care instructions jhsieh Not available 06/23/2023 12:49:23 knee arthritis: care instructions sieh Not available 06/23/2023 12:49:23 allergies: care instructions jhsieh Not available 06/23/2023 12:49:23 managing your allergies: care instructions sieh Not available 06/23/2023 12:49:23 Reason for Referral None Reported. Results Created Date Observation Date Name Description Value Unit Range Abnormal Flag Note LastModifiedBy Organization Detail LastModifiedTime 12/13/1912/12/2022 HbA1c (hemo globi n A1c), blood HbA1c 6.5% Not Available In-Office Order Internal Use Only DO Not Attach Compendium DO Not Attach Compendium, Do Not Delete/merge, [id number] 12/12/2022 15:34:29 10/18/19 23 10/17/2022 XR, chest , 2 view No observ ation record ed. [facility] [address] [place], [address], 10/24/2022 13:53:42 09/26/19 24 09/26/2023 US, abdom en No observ ation record ed. [facility] [address] [place], [address], 09/29/2023 14:08:52 Result Notes None recorded. Problems Name Problem SNOMED Code Status Onset Date Resolution Date Notes Provider Name and Address Organization Details Recorded Time Migraine 02660484 Active 2018 Not Available [facility] 3 21:00:26 Vaginitis 70331355 Active Not Available [facility] 3 21:00:26 Diabetes mellitus 71144156 Active Not Available [facility] 3 21:00:26 Hyperlipidemi a 77990035 Active Not Available [facility] 3 21:00:26 Essential hypertension 06066900 Active Not Available [facility] 3 21:00:26 Osteoarthriti s 579312937 Active Not Available [facility] 3 21:00:26 Gastroesophag eal reflux disease 327163597 Active Not Available [facility] 3 21:00:26 Insomnia 205287652 Active Not Available [facility] 3 21:00:26 Candidiasis 27012131 Active Not Available [facility] 3 21:00:26 Menopausal syndrome 580696861 Active Not Available [facility] 3 21:00:26 Atrophic vaginitis 36541757 Active Not Available [facility] 3 21:00:26 Bacterial vaginosis 964901735 Active Not Available [facility] 3 21:00:26 Lumbar spondylosis 817440587 Active Not Available [facility] 3 21:00:26 Chronic sciatica 501434317 Active Not Available [facility] 3 21:00:26 Recurrent urinary tract infection 175320229 Active Not Available [facility] 3 21:00:26 Chronic obstructive pulmonary disease 10526270 Active Not Available [facility] 3 21:00:26 Osteoarthriti s of knee 048670852 Active Not Available [facility] 3 21:00:26 Diabetic peripheral neuropathy 473057436 Active Not Available [facility] 3 21:00:26 Urinary tract infectious disease 64413600 Active Not Available [facility] 3 21:00:26 Cystocele 508382869 Active Not Available [facility] 3 21:00:26 Body mass index 25-29 - overweight 650756650 Active Not Available [facility] 3 21:00:26 Breast lump 01186324 Active Not Available [facility] 3 21:00:26 Acute urinary tract infection 268685829 Active Not Available [facility] 3 21:00:26 Menopausal flushing 001889448 Active Not Available [facility] 3 21:00:26 Vaginal discharge 837173708 Active Not Available [facility] 3 21:00:26 Anogenital herpesviral infection 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 Please review these documents and add these problems to the patient's chart manually as needed. Problem Notes None recorded. Procedures Surgical History Date Name Laterality Status Provider Name and Address Organization Details Recorded Time 09/07/19 15 Orthopedic Surgery completed Vivian Sánchez MA [facility] 01/05/2015 14:57:34 08/07/19 14 Most Recent Mammogram completed Vivian Sánchez MA [facility] 01/05/2015 14:57:34 01/29/20 08 Date of Last Pap Smear completed Vivian Sánchez MA [facility] 01/05/2015 14:57:34 08/07/18 76 Tubal Ligation completed Vivian VirateeARCADIO [facility] - [facility] 02/16/2016 11:14:58 08/07/18 76 Total Abdominal Hysterectomy completed Vviian ARCADIO Sánchez [facility] - [facility] 01/05/2015 14:57:34 Other completed Nannette LozanoshawARCADIO AL - [facility] 10/11/2016 16:46:47 Hysterectomy completed Vivian SánchezARCADIO AL - [facility] 01/05/2015 14:57:34 Ovarian Cystectomy completed Vivian ARCADIO Sánchez [facility] - [facility] 01/05/2015 14:57:34 Imaging Results Imaging Date Name Status LastModified by Organiz ation Details LastModified Time 10/17/2022 XR, chest, 2 view completed [facility] [address] [place], [address], 10/24/2022 13:53:42 09/26/2023 US, abdomen completed [facility] [address] [place], [address], 09/29/2023 14:08:52 Procedure Notes None recorded. Medical Equipment None Reported. Allergies Allergen ID Allergen Name Allergen Category Reaction Reaction Severity Criticality Documentation Date Start Date Code Code System Note Provider Name and Address Organization Details Recorded Time 86035 Product containin g penicilli n (product) medicatio n hives severe Not available 08/04/2014 51467 8001 SNOMED Not Available Not Available Not Available 13366 Cipro medicatio n hives severe Not available 02/16/2016 32367 3 RxNorm Not Available Not Available Not Available 79564 poison oak extract environme nt itching severe Not available 02/16/2016 13051 UNK hives Not Available Not Available Not Available 21811 poison linda extract environme nt itching severe Not available 02/16/2016 47897 6 RxNorm hives Not Available Not Available Not Available 51353 Toxicoden dron vernix leafy twig extract Not available itching severe Not available 02/16/2016 27523 61 RxNorm hives Not Available Not Available Not Available Medications Name Sig Start Date Stop Date Status Note LastModified by Organization Details LastModified Time pioglitaz one hydrochlo ride 30 mg tabs 02/11 completed Not Available Not Available Not Available venlafaxi ne hcl er 150 mg cp24 02/11 completed Not Available Not Available Not Available methotrex ate 2.5 mg tabs 02/11 completed Not Available Not Available Not Available atenolol 100 mg tabs 02/11 completed Not Available Not Available Not Available tramadol hcl 50 mg tabs 06/16 completed Not Available Not Available Not Available diazepam 5 mg tabs 02/11 completed Not Available Not Available Not Available Prescript ion - Change 10/17 completed Not Available Not Available Not Available smz/tmp ds tab 800-160 02/11 completed Not Available Not Available Not Available topiramat e 25 mg tabs 02/11 completed Not Available Not Available Not Available omeprazol e 40 mg cpdr 02/11 completed Not Available Not Available Not Available magnesium oxide 250mg tab TAKE 1 TABLET BY MOUTH TWICE DAILY active Not Available Not Available No t Available multivita min tablet Take 1 tablet every day by oral route. 10/19 completed Not Available Not Available Not Available losartan 50 mg tablet TAKE 1 TABLET BY MOUTH ONCE DAILY DIRECTED active Not Available Not Available No t Available pioglitaz one 15 mg tablet TAKE 1 TABLET BY MOUTH EVERY DAY 02/11 completed Not Available Not Available Not Available promethaz ine-DM 6.25 mg-15 mg/5 mL oral syrup TAKE 5 ML BY MOUTH EVERY 4 HOURS NEEDED FOR 7 DAYS 01/10 completed Not Available Not Available Not Available venlafaxi ne ER 75 mg capsule,e xtended release 24 hr Take 1 capsule every day by oral route. 10/17 completed Not Available Not Available Not Available atorvasta tin 20 mg tablet active Not Available Not Available Not Available trazodone 50 mg tablet TAKE 1 TABLET BY MOUTH ONCE DAILY AT BEDTIME NEEDED FOR SLEEP active Not Available Not Available No t Available atorvasta tin 10 mg tablet Take 1 tablet every day by oral route at dinner for 30 days. 10/04 completed Not Available Not Available Not Available azithromy keaton 250 mg tablet TAKE 2 TABLETS BY MOUTH ON DAY 1, AND THEN TAKE 1 TABLET BY MOUTH ONCE A DAY ON DAY 2 THROUGH DAY 5 01/10 completed Not Available Not Available Not Available fluconazo le 150 mg tablet Take 1 tablet by oral route. 05/08 completed Not Available Not Available Not Available atenolol 100 mg tablet active Not Available Not Available Not Available minocycli ne 100 mg capsule active Not Available Not Available Not Available meloxicam 15 mg tablet Take 1 tablet every day by oral route as directed for 30 days. 05/08 completed Not Available Not Available Not Available metronida zole 0.75 % (37.5 mg/5 gram) vaginal gel Insert 1 applicat orful every day by vaginal route at bedtime for 5 days. active Not Available Not Available No t Available clonidine HCl 0.3 mg tablet active Not Available Not Available No t Available prednison e 5 mg tablet TAKE 1 3 TABLETS BY ORAL ROUTE DAILY 07/22 completed Not Available Not Available Not Available terconazo le 0.8 % vaginal cream Insert 1 applicat orful every day by vaginal route for 3 days. active Not Available Not Available No t Available sulfasala zine 500 mg tablet,de layed release TAKE 1 TO 2 TABLETS BY MOUTH TWICE DAILY active Not Available Not Available No t Available glipizide ER 5 mg tablet, extended release 24 hr active Not Available Not Available Not Available venlafaxi ne ER 150 mg capsule,e xtended release 24 hr TAKE 1 CAPSULE BY MOUTH ONCE DAILY IN THE MORNING AT THE SAME TIME EACH DAY WITH FOOD active Not Available Not Available No t Available topiramat e 25 mg tablet 06/16 completed Not Available Not Available Not Available metronida zole 500 mg tablet Take 1 tablet twice a day by oral route for 7 days. 05/08 completed Not Available Not Available Not Available azathiopr ine 50 mg tablet TAKE 2 TABLETS (100 MG) BY MOUTH ONCE DAILY FOR 30 DAYS 07/22 completed Not Available Not Available Not Available sulfameth oxazole 800 mg-trimet hoprim 160 mg tablet TAKE 1 TABLET BY MOUTH EVERY 12 HOURS AFTER A MEAL FOR 5 DAYS 12/12 completed Not Available Not Available Not Available hydrocodo ne 10 mg-acetam inophen 325 mg tablet active Not Available Not Available Not Available omeprazol e 40 mg capsule,d elayed release TAKE 1 CAPSULE BY MOUTH ONCE DAILY BEFORE MEAL(S) 2023 active Not Available Not Available Not Avai lable tramadol 50 mg tablet TAKE 1 TO 2 TABLETS BY MOUTH THREE TIMES DAILY NEEDED FOR PAIN WITH TYLENOL active Not Available Not Available No t Available acetamino phen 500 mg tablet TAKE 2 TABLETS (1,000 MG) BY ORAL ROUTE 3 TIMES DAILY 07/22 completed Not Available Not Available Not Available butalbita l-acetami nophen-ca ffeine 50 mg-325 mg-40 mg tablet TAKE 1 TABLET BY MOUTH EVERY DAY NEEDED FOR 30 DAYS active Not Available Not Available No t Available acyclovir 800 mg tablet Take 1 tablet 5 times a day by oral route as directed for 10 days. 08/21 completed Not Available Not Available Not Available Children' s Non-Aspir in Pain 80 mg chewable tablet Do not fill...c omputer made me choose a med. 05/08 completed Not Available Not Available Not Available methylpre dnisolone acetate 80 mg/mL suspensio n for injection Take 1 mL as needed by injectio n route as directed for 1 day. 12/12 completed Not Available Not Available Not Available meloxicam 7.5 mg tablet TAKE 1 TABLET BY MOUTH ONCE DAILY active Not Available Not Available No t Available oxycodone -acetamin ophen 5 mg-325 mg tablet 03/05 completed Not Available Not Available Not Available prednisol one acetate 1 % eye drops,balbir pension 03/05 completed Not Available Not Available Not Available triamcino lone acetonide 0.1 % dental paste Take 1 applicat ion every day by dental route at bedtime for 7 days. active Not Available Not Available No t Available methotrex ate sodium 2.5 mg tablet TAKE 5 TABS BY MOUTH IN THE MORNING AND 5 TABS IN THE EVENING ONCE WEEKLY active Not Available Not Available No t Available OneTouch Ultra Test strips active Not Available Not Available Not Available amitripty line 10 mg tablet 03/05 completed Not Available Not Available Not Available amlodipin e 10 mg tablet active Not Available Not Available Not Available benzonata te 100 mg capsule TAKE 1 CAPSULE( S) BY MOUTH THREE TIMES DAILY DIRECTED FOR 20 DAYS. 01/10 completed Not Available Not Available Not Available glipizide ER 2.5 mg tablet, extended release 24 hr TAKE ONE TABLET BY MOUTH ONCE DAILY DIRECTED 06/14 completed Not Available Not Available Not Available hydrocodo ne 7.5 mg-acetam inophen 325 mg tablet Take 1 tablet every 6 hours by oral route as needed for 5 days. 02/11 completed Not Available Not Available Not Available Questran 4 gram oral powder Take 1 scoop twice a day by oral route as needed for 30 days. 08/21 completed Not Available Not Available Not Available paroxetin e 20 mg tablet Take 1 tablet every day by oral route. active Not Available Not Available No t Available venlafaxi ne 37.5 mg tablet TAKE ONE TABLET BY MOUTH ONCE DAILY 05/08 completed Not Available Not Available Not Available oseltamiv ir 75 mg capsule 10/04 completed Not Available Not Available Not Available nitrofura ntoin macrocrys joyce 100 mg capsule Take 1 capsule twice a day by oral route for 7 days. 2014 active Not Available Not Available Not Avai lable ropinirol e 0.5 mg tablet TAKE 1 TABLET BY MOUTH 1-3 HOURS BEFORE BEDTIME active Not Available Not Available No t Available nystatin 100,000 unit/gram topical cream active Not Available Not Available Not Available polymyxin B sulfate 10,000 unit-trim ethoprim 1 mg/mL eye drops 03/05 completed Not Available Not Available Not Available pramipexo le 0.25 mg tablet TAKE ONE TABLET BY MOUTH NIGHTLY (ONE HOUR BEFORE BEDTIME) active Not Available Not Available No t Available gabapenti n 300 mg capsule Take 1 capsule 3 times a day by oral route around the clock for 30 days. 08/21 completed Not Available Not Available Not Available omeprazol e 20 mg capsule,d elayed release 05/08 completed Not Available Not Available Not Available diclofena c sodium 75 mg tablet,de layed release TAKE 1 TABLET BY MOUTH TWICE DAILY active Not Available Not Available No t Available folic acid 1 mg tablet TAKE 1 TABLET BY MOUTH ONCE DAILY active Not Available Not Available No t Available monteluka st 10 mg tablet TAKE 1 TABLET BY MOUTH ONCE DAILY active Not Available Not Available No t Available morphine ER 15 mg tablet,ex tended release 06/14 completed Not Available Not Available Not Available Replens vaginal gel Insert 1 g twice a day by vaginal route. 08/21 completed Not Available Not Available Not Available ceftriaxo ne 500 mg solution for injection Take 500 mg by injectio n route. 10/09 completed Not Available Not Available Not Available norethind gilberto acetate 5 mg tablet Take 1 tablet every day by oral route. 06/16 completed Not Available Not Available Not Available diazepam 10 mg tablet 03/05 completed Not Available Not Available Not Available hydroxych loroquine 200 mg tablet TAKE 2 TABLETS BY MOUTH EVERY DAY 07/22 completed Not Available Not Available Not Available lovastati n 20 mg tablet Take 1 tablet every day by oral route at dinner for 30 days. 05/08 completed Not Available Not Available Not Available methylpre dnisolone 4 mg tablets in a dose pack TAKE BY MOUTH DIRECTED ON INSIDE OF PACKAGE active Not Available Not Available No t Available albuterol sulfate HFA 90 mcg/actua tion aerosol inhaler Inhale 2 puff(s) every 4 hours by inhalati on route as needed for 30 days. active Not Available Not Available No t Available pioglitaz one 30 mg tablet TAKE 1 TABLET BY MOUTH ONCE DAILY active Not Available Not Available No t Available norethind gilberto (contrace ptive) 0.35 mg tablet Take 1 tablet every day by oral route. 02/11 completed Not Available Not Available Not Available lisinopri l 40 mg tablet active Not Available Not Available Not Available ondansetr on 4 mg disintegr ating tablet 10/17 completed Not Available Not Available Not Available fluticaso ne propionat e 50 mcg/actua tion nasal spray,balbir pension 08/21 completed Not Available Not Available Not Available doxycycli ne hyclate 100 mg tablet TAKE 1 TABLET BY MOUTH TWICE DAILY FOR 7 DAYS active Not Available Not Available No t Available dicyclomi ne 10 mg capsule Take 1 capsule 3 times a day by oral route as needed for 30 days. 10/19 completed Not Available Not Available Not Available atenolol 50 mg tablet Take 2 tablets by mouth once daily 2022 active Not Available Not Available Not Avai lable loratadin e 10 mg tablet TAKE 1 TABLET BY MOUTH ONCE DAILY DIRECTED active Not Available Not Available No t Available glipizide 5 mg tablet Take 1 tablet every day by oral route for 30 days. active Not Available Not Available No t Available naproxen 500 mg tablet 05/08 completed Not Available Not Available Not Available diazepam 5 mg tablet Take 1 tablet as needed by oral route at bedtime for 30 days. 11/24 completed Not Available Not Available Not Available Vitamin D3 25 mcg (1,000 unit) capsule TAKE 1 CAPSULE BY MOUTH ONCE DAILY active Not Available Not Available No t Available cyclobenz aprine 5 mg tablet TAKE 1 TO 2 TABLETS BY MOUTH NIGHTLY active Not Available Not Available No t Available Premarin 0.45 mg tablet Take 1 tablet every day by oral route. 06/16 completed Not Available Not Available Not Available Premarin 0.625 mg/gram vaginal cream Insert 1 g twice a week by vaginal route. 06/16 completed Not Available Not Available Not Available Premarin 0.3 mg tablet Take 1 tablet every day by oral route. 09/03 completed Not Available Not Available Not Available Premarin 0.625 mg tablet Take 1 tablet every day by oral route for 30 days. active Not Available Not Available No t Available Premarin 1.25 mg tablet active Not Available Not Available Not Available cholestyr amine (with sugar) 4 gram powder for susp in a packet 08/21 completed Not Available Not Available Not Available nitrofura ntoin monohydra te/macroc rystals 100 mg capsule Take 1 capsule as needed by oral route as directed . 10/04 completed Not Available Not Available Not Available Boostrix Tdap 2.5 Lf unit-8 mcg-5 Lf/0.5 mL intramusc ular syringe 05/08 completed Not Available Not Available Not Available Lyrica 50 mg capsule Take 1 capsule 3 times a day by oral route for 28 days. 2014 active Sample from this office, 4 boxes of 21 pills,LO [id number] . EXP.12/07, with package insert. Not Available Not Available Not Available hydrocodo ne 5 mg-acetam inophen 300 mg tablet active Not Available Not Available Not Available Zostavax (PF) 19,400 unit/0.65 mL subcutane ous suspensio n 05/08 completed Not Available Not Available Not Available Orencia 01/10 completed Not Available Not Available Not Available cholecalc iferol (vitamin D3) 25 mcg (1,000 unit) tablet TAKE 1 TABLET BY MOUTH ONCE DAILY active Not Available Not Available No t Available Symbicort 160 mcg-4.5 mcg/actua tion HFA aerosol inhaler Inhale 2 puffs twice a day by inhalati on route as directed for 30 days. active Not Available Not Available No t Available Calcium with Vitamin D 600 mg-10 mcg (400 unit) tablet Take 1 tablet twice a day by oral route. 10/19 completed Not Available Not Available Not Available Cimzia 400 mg/2 mL (200 mg/mL x 2) subcutane ous syringe kit Inject 2 mL every 4 weeks by subcutan eous route. active Not Available Not Available No t Available Nucynta 50 mg tablet 02/10 completed Not Available Not Available Not Available Nucynta 75 mg tablet 02/10 completed Not Available Not Available Not Available Suprep Bowel Prep Kit 17.5 gram-3.13 gram-1.6 gram oral solution 08/21 completed Not Available Not Available Not Available lidocaine 5 % topical ointment 02/10 completed Not Available Not Available Not Available Myrbetriq 25 mg tablet,ex tended release Take 1 tablet every day by oral route as directed for 30 days. active Not Available Not Available No t Available Linzess 145 mcg capsule Take 1 capsule every day by oral route. 05/08 completed Not Available Not Available Not Available Prolensa 0.07 % eye drops 03/05 completed Not Available Not Available Not Available Butrans 15 mcg/hour transderm al patch active Not Available Not Available Not Available Viberzi 75 mg tablet Take 1 tablet twice a day by oral route with meals for 8 days. 10/17 completed Not Available Not Available Not Available Shingrix (PF) 50 mcg/0.5 mL intramusc ular suspensio n, kit 10/19 completed Not Available Not Available Not Available OneTouch Delica Plus Lancet 33 gauge USE DIRECTED active Not Available Not Available No t Available Fluzone High-Dose Quad (PF) 240 mcg/0.7 mL IM syringe 10/19 completed Not Available Not Available Not Available Tab-A-Vit e 400 mcg tablet TAKE ONE TABLET BY MOUTH ONCE DAILY active Not Available Not Available No t Available Vitals Date Recorded Body height Body mass index (BMI) Body weight Systolic blood pressure Diastolic blood pressure Provider Name and Address Organization Details Last Updated DateTime 11/08/2022 165.1 cm 32.6 kg/m2 35498.1 g 142 mm[Hg] 70 mm[Hg] Fabi Nguyen MA [facility] 3 14:11:32 Date Recorded Body height Body mass index (BMI) Body weight Oxygen saturation Oxygen saturation in Arterial blood by Pulse oximetry Heart rate Systolic blood pressure Diastolic blood pressure Provider Name and Address Organization Details Last Updated DateTime 3 165.1 cm 32.8 kg/m2 44213.1 3 g 97 % 97 % 74 /min 130 mm[Hg] 68 mm[Hg] Viviane Orantes MA [facility] 3 15:30:16 Date Recorded Body height Body mass index (BMI) Body weight Oxygen saturation Oxygen saturation in Arterial blood by Pulse oximetry Heart rate Systolic blood pressure Diastolic blood pressure Provider Name and Address Organization Details Last Updated DateTime 3 165.1 cm 33.3 kg/m2 74226.9 1 g 93 % 93 % 75 /min 134 mm[Hg] 76 mm[Hg] Viviane Orantes MA [facility] 3 17:04:15 Date Recorded Body height Body mass index (BMI) Body weight Heart rate Oxygen saturation Oxygen saturation in Arterial blood by Pulse oximetry Systolic blood pressure Diastolic blood pressure Provider Name and Address Organization Details Last Updated DateTime 3 165.1 cm 33.8 kg/m2 98796.2 5 g 87 /min 98 % 98 % 142 mm[Hg] 80 mm[Hg] Tiffany Stewart MA [facility] 3 12:16:44 Date Recorded Body height Body mass index (BMI) Body weight Heart rate Oxygen saturation Oxygen saturation in Arterial blood by Pulse oximetry Systolic blood pressure Diastolic blood pressure Provider Name and Address Organization Details Last Updated DateTime 4 165.1 cm 33.3 kg/m2 72996.4 7 g 71 /min 96 % 96 % 118 mm[Hg] 76 mm[Hg] Tiffany Stewart MA [facility] 4 12:26:04 Social History Question Answer Notes LastModified by Organizat ion Details LastModified Time Tobacco Smoking Status Never Smoker Murphy Lindquist MA null, [facility] 10/27/2014 10:33:11 Do You Have An Advance Directive? No Information not available 02/16/2016 What Is Your Level Of Alcohol Consumption? None Information not available 02/16/2016 Is Blood Transfusion Acceptable In An Emergency? Yes Information not available 02/16/2016 What Is Your Level Of Caffeine Consumption? Moderate Information not available 02/16/2016 How Much Tobacco Do You Chew? None Information not available 02/16/2016 Are You Currently Employed? Yes Information not available 02/16/2016 What Type Of Diet Are You Following? VEGETARIAN Information not available 02/16/2016 Do You Or Have You Ever Used E-cigarettes Or Vape? Never Used Electronic Cigarettes Information not available 08/20/2019 Education 2 Year College Informatio n not available 02/16/2016 What Is Your Occupation? Retired [email or web address] Information not available 09/27/2018 Live Alone Or With Others? With Others Information not available 02/16/2016 What Was The Date Of Your Most Recent Tobacco Screening? 08/29/2023 Information not available 08/29/2023 How Many Children Do You Have? 3 Information not available 02/16/2016 Performs Monthly Self-breast Exam? Yes Information no t available 02/16/2016 Do You Use Protection During Sex? Always Information not available 08/21/2019 What Is Your Relationship Status? Information not available 02/16/2016 Seat Belts Used Routinely Yes Information not available 02/16/2016 Are You Sexually Active? Yes Information not available 02/16/2016 Do You Or Have You Ever Used Smokeless Tobacco? Never Used Smokeless Tobacco Information not available 08/20/2019 How Much Tobacco Do You Smoke? No Information not available 03/02/2016 General Stress Level Low Information not available 02/16/2016 Do You Use Sunscreen Routinely? No Information not available 02/16/2016 On What Date Was Tobacco Cessation Counseling Provided? 08/29/2023 Information not available 08/29/2023 How Many Years Have You Smoked Tobacco? 0 Information not available 03/02/2016 Sex: Unknown Functional Status Question Answer Note LastModified by Organization D etails LastModified Time What is your exercise level? Moderate Information not available 02/16/2016 Mental Status None recorded. Family History Relationship Description Onset Age of this Age Resolved Age Notes LastModified by Organization Details LastModified Time Paternal Grandfather Diabetes mellitus [email or web address] Not available 2015 14:01:21 Paternal Grandfather Pancarditis [email or web address] Not available 1 14:01:21 Mother Disorder of lung [email or web address] Not available 2015 14:01:21 Mother Hypertensive disorder [email or web address] Not available 2015 14:01:21 Mother Dementia [email or web address] Not available 05/17/2016 14:01:21 Mother Depressive disorder [email or web address] Not available 2015 14:01:21 Mother Diabetes mellitus [email or web address] Not available 2015 14:01:21 Mother Osteoporosis [email or web address] Not avail able 05/17/2016 14:01:21 Brother Depressive disorder [email or web address] Not available 2015 14:01:21 Brother Heart disease [email or web address] Not available 2015 14:01:21 Brother Hypertensive disorder [email or web address] Not available 2015 14:01:21 Sister Diabetes mellitus [email or web address] Not available 2015 14:01:21 Sister Hypertensive disorder [email or web address] Not available 2015 14:01:21 Father Alcohol abuse [email or web address] Not available 2015 14:01:21 Father Asthma svuyyuru Not available 1 14:01:21 Father Malignant tumor of colon [email or web address] Not available 2015 14:01:21 Father Coronary arterioscler osis svuyyuru Not available 2015 14:01:21 Father Depressive disorder [email or web address] Not available 2015 14:01:21 Father Diabetes mellitus [email or web address] Not available 2015 14:01:21 Father Heart disease svuyyuru Not available 2015 14:01:21 Father Hypertensive disorder svuyyuru Not available 2015 14:01:21 Medical History Condition Response Heart Problems N Other Y High Blood Pressure Y Breast Cancer N Thyroid Problems N Kidney or Bladder Problems Y Lung Disease N Depression Y Blood Clots N GI Problems Y Acne N Breast Problem N Eating Disorder N Anemia N Anesthesia Complications Y Headaches/Migraines N Ovarian Cancer N Diabetes Y Anxiety Disorder N Muscle, Joint, or Bone Problems Y Blood Transfusions Y Seizures/Epilepsy N Arthritis Y Polyps N Infertility N Acid Reflux (GERD) Y Cancer N Stroke N Abuse/Domestic Violence N Asthma N Endometriosis N High Cholesterol N Hepatitis N Liver Disease N Heart Disease N Fibromyalgia N Pre-Eclampsia Y Hypertension Y Osteoporosis Y Kidney Disease N Gynecological History Statement/Question Response Abnormal Pap N On BCP's at Conception? N STIs/STDs N HPV Vaccine N Most Recent Mammogram 08/07/2013 Age at Menarche 10 Current Control Method Tubal Ligat ion Age at First Child 16 Sexually Active? Y Menses Monthly No Date of Last Pap Smear 01/29/2008 Sexual Problems? N Desired Control Method N/A Obstetrics History GPAL:G 3 P 3 0 0 3 Type Value Multiple Births 0 Full Term 3 Induced 0 Spontaneous 0 Premature 0 Living 3 Ectopics 0 Total 3 Immunizations Vaccine Type Date Status Note Provider Nam e and Address Organization Details Recorded Time COVID-19, mRNA, LNP-S, PF, 30 mcg/0.3 mL dose 1 completed Not Available [facility] 02/13/2023 21:00:27 COVID-19, mRNA, LNP-S, PF, 30 mcg/0.3 mL dose 1 completed Not Available [facility] 02/13/2023 21:00:27 zoster recombinant 0 completed Not Available [facility] 02/13/2023 21:00:27 Influenza, high-dose, quadrivalent, PF 0 completed Not Available [facility] 02/13/2023 21:00:27 Influenza, adjuvanted, quadrivalent, PF 1 completed Not Available [facility] 02/13/2023 21:00:27 Influenza, adjuvanted, quadrivalent, PF 2 completed Not Available [facility] 02/13/2023 21:00:27 COVID-19, mRNA, LNP-S, PF, 30 mcg/0.3 mL dose 1 completed Not Available [facility] 02/13/2023 21:00:27 COVID-19, mRNA, LNP-S, PF, 30 mcg/0.3 mL dose, jaylon-sucrose 2 completed Not Available [facility] 02/13/2023 21:00:27 COVID-19, mRNA, LNP-S, bivalent, PF, 30 mcg/0.3 mL dose 2 completed Not Available [facility] 02/13/2023 21:00:27 pneumococcal polysaccharide PPV23 2 completed Not Available [facility] 02/13/2023 21:00:27 Tdap 5 completed Not Available [facility] 02/13/2023 21:00:27 Pneumococcal conjugate PCV 13 5 completed Not Available [facility] 02/13/2023 21:00:27 zoster live 5 completed Not Available [facility] 02/13/2023 21:00:27 Influenza, split virus, trivalent, PF 5 completed Not Available [facility] 02/13/2023 21:00:27 Influenza, split virus, quadrivalent, preservative 7 completed Not Available [facility] 08/24/2019 02:33:26 Influenza, split virus, quadrivalent, preservative 7 completed Not Available [facility] 08/24/2019 02:44:13 Influenza, split virus, quadrivalent, preservative 9 completed Not Available [facility] 08/24/2019 02:39:49 Past Encounters Encounter ID Performer Location Encounter Start Date Encounter Closed Date Diagnosis/Indication Diagnosis SNOMED-CT Code Diagnosis ICD10 Code Diagnosis Note [id number] ARCADIO Jarvis (PIER MASTER ASSISTANT) [address] [place] [address] [id number] 0 08/04/2014 11:37:59 08/04/2014 13:33:42 Breast lump 71329915 Venereal d isease screening 348172285 Acute urin ramon tract infection 271259127 [id number] ARCADIO Dumas (Adult Med) [address] [place] [address] [id number] 0 10/27/2014 10:03:25 10/27/2014 11:15:01 Diabetes mellitus 27092187 Hyperlipidemia 44564591 Essential hypertension 40993007 Osteoarthritis 308790559 Gastroesop hageal reflux disease 654178991 Insomnia 851090906 [id number] Monica Menard Dimitris (PIER MASTER ASSISTANT) [address] [place] [address] [id number] 0 01/05/2015 13:48:49 01/05/2015 15:58:05 Menopausal syndrome 416567418 Screening mammography 59331668 Atrophic vaginitis 05893290 Streptococcus carrier 670667109 [id number] ARCADIO Wise (Adult Med) [address] [place] [address] 43019-159 0 04/07/2015 10:36:24 04/07/2015 12:27:57 Diabetes mellitus 78554742 Essential hypertension 78839940 Gastroesop hageal reflux disease 892548294 Hyperlipidemia 00919636 Osteoarthritis 990732761 Postmenopausal state 30374479 Lumbar spondylosis 302038390 Chronic sciatica 272133299 [id number] MD Dimitris Salazar (Adult Med) [address] [place] [address] 74997-810 0 05/29/2015 14:02:48 05/29/2015 16:44:17 Diabetes mellitus 76483330 E11.9 Recurrent urinary tract infection 490911507 N39.0 Hyperlipidemia 30432513 E78.5 Chronic sciatica 4207402 01 M54.31 M54.32 [id number] MD Dimitris Salazar (Adult Med) [address] [place] [address] 97514-022 0 08/04/2015 09:58:32 08/04/2015 11:48:33 Diabetes mellitus 43306300 E11.9 Hyperlipidemia 60774455 E78.5 Gastroesop hageal reflux disease 288979532 K21.9 Essential hypertension 76535264 I10 Chronic sciatica 1351549 01 M54.30 [id number] Micaela Reyes is Dimitris (Adult Med) [address] [place] [address] [id number] 0 01/06/2016 14:39:32 01/06/2016 16:12:52 Diabetes mellitus 02995248 E11.9 Hyperlipidemia 05769758 E78.5 Gastroesop hageal reflux disease 640762077 K21.9 Essential hypertension 89735443 I10 Chronic sciatica 4283572 01 M54.30 Insomnia 214429738 G47.0 0 [id number] Micaela Reyes is Dimitris (Adult Med) [address] [place] [address] [id number] 0 01/26/2016 16:58:54 01/26/2016 18:02:34 Diabetes mellitus 12804694 E11.9 Gastroesop hageal reflux disease 268613671 K21.9 Hyperlipidemia 51545202 E78.5 Lumbar spondylosis 97299 0009 M47.896 Chronic ob structive pulmonary disease 70213310 J44.9 Osteoarthr itis of knee 152948126 M17.9 Diabetic p eripheral neuropathy 966511334 E11.40 [id number] Jonathan Shnaks (PIER MASTER ASSISTANT) [address] [place] [address] 51640-118 0 02/16/2016 09:58:29 02/16/2016 12:58:22 Urinary tract infectious disease 84403521 N39.0 Cystocele 655003759 N81. 10 Pessary device to be reordered, patient to be notified when device arrives. Body mass index 25-29 - overweight 315009490 Z68.29 Patient encouraged to increase activity level and to decrease weight from baseline. [id number] MD Dimitris Ray (PIER MASTER ASSISTANT) [address] [place] [address] [id number] 0 03/21/2016 10:20:44 03/21/2016 16:14:30 Urinary tract infectious disease 26699663 N39.0 Cystocele 981814448 N81. 10 Venereal d isease screening 705885282 Z11.3 Screening mammography 24 979866 Z12.31 Menopausal flushing 1984 24070 N95.1 Vaginal discharge 153986 006 N89.8 [id number] MD Dimitris Salazar (Adult Med) [address] [place] [address] 79513-928 0 05/16/2016 15:37:06 05/16/2016 17:06:09 Diabetes mellitus 91931883 E11.9 Cystocele 038830384 N81. 10 Chronic sciatica 0132198 01 M54.30 Chronic ob structive pulmonary disease 54155629 J44.9 Diabetic p eripheral neuropathy 952904809 E11.40 Essential hypertension 95040473 I10 Gastroesop hageal reflux disease 522586613 K21.9 Hyperlipidemia 22260396 E78.5 [id number] MD Dimitris Ray (PIER MASTER ASSISTANT) [address] [place] [address] [id number] 0 05/17/2016 11:55:27 05/17/2016 13:48:14 Urinary tract infectious disease 65178480 N39.0 Menopausal flushing 1984 06344 N95.1 Cystocele 933402990 N81. 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 Denies any fever, nausea, vomiting. If symptoms does not improve with linzess will get abdominal x- ray. She say she saw urologist for abdominal distention , who done bladder surgery . She say he ordered CT abdomen and was told that it was normal. Advised nurse Demi to get the records from [place]. Counseled to go to ER if fever, nausea and voming and increased abdominal pain. She verbalized understand ing. Bacterial vaginosis 4197 82301 N76.0 Chronic id iopathic constipation 82402579 K59.04 [id number] MD Dimitris Ray (PIER MASTER ASSISTANT) [address] [place] [address] [id number] 0 08/04/2016 09:50:44 08/05/2016 15:56:46 Urinary tract infectious disease 94803783 N39.0 Pain in pelvis 01360446 R10.2 SHE SAY HER PELVIC PAIN IMPROVED AFTER TAKING ANTIBIOTIC S. SHE STILL HAVE FLAGYL PILLS. ADVISED TO FINISH THEM Bacterial vaginosis 4197 79554 N76.0 SHE DID NOT FINISH FLAGYL PILLS. ADVISED TO TAKE FLAGYL PILLS [id number] ARCADIO Bauer (PIER MASTER ASSISTANT) [address] [place] [address] [id number] 0 10/11/2016 15:33:08 10/12/2016 15:30:44 Administration of influenza vaccine 82836382 Z23 Menopausal flushing 1984 18390 N95.1 counseled about it Vaginal dryness 01116348 N89.8 Body mass index 25-29 - overweight 733620932 Z68.29 [id number] MD Dimitris Ray (PIER MASTER ASSISTANT) [address] [place] [address] [id number] 0 11/11/2016 13:58:13 11/15/2016 12:18:46 Menopausal flushing 181288813 N95.1 counseled about it Essential hypertension 60274101 I10 advised to go to to ER. patient refused. advised to f/u with PCP. SHE VERBALIZED UNDERSTAND ING [id number] MD Dimitris Salazar (Adult Med) [address] [place] [address] [id number] 0 12/21/2016 16:31:50 12/21/2016 18:19:46 Diabetes mellitus 62321218 E11.9 Diabetic diet, exercise and lose weight. Chronic ob structive pulmonary disease 49174561 J44.9 stable. Menopausal syndrome 1237 34531 N95.9 Under the care of her gynecologi st. Gastroesop hageal reflux disease 929593642 K21.9 Osteoarthr itis of knee 710961127 M17.9 Under the care of a orthopedic care. Lumbar spondylosis 87626 0009 M47.896 Under the care of his pain management clinic. Hyperlipidemia 18970057 E78.5 Low saturated fat diet, exercise and lose somw weight. Essential hypertension 36484128 I10 Low salt diet. Screening for malignant neoplasm of colon 099397469 Z12.11 She will contact her GI specialist Dr. Sharron Waller to set up the schedule. Chronic sciatica 5547337 01 M54.30 Under the care of pain management clinic. Shoulder pain 48830861 M 25.511 Under the care of her network specialist . Knee pain 50227789 M25.5 62 Under the care of hr network specialist . Insomnia 298262007 G47.0 0 [id number] MD Dimitris Ray (PIER MASTER ASSISTANT) [address] [place] [address] 83354-810 0 02/10/2017 14:36:04 02/10/2017 16:32:30 Venereal disease screening 968858664 Z11.3 Exposure t o sexually transmissible disorder 997467277 Z20.2 conselled about safe sex Menopausal flushing 1983 92252 N95.1 counseled about it. Improved on venlafaxin e. Advised to continue. Vaginal dryness 79720912 N89.8 she say it improved on replens. Advised to continue. [id number] MD Dimitris Ray (PIER MASTER ASSISTANT) [address] [place] [address] 55560-088 0 05/01/2017 10:54:04 05/01/2017 14:08:31 Vaginal dryness 99353132 N89.8 she say it improved on replens. Advised to continue. Gynecologi c examination 64954052 Z01.419 Counseled about WWE and kegel excercises . Refer to hand out Menopausal flushing 1983 39636 N95.1 counseled about it. Improved on venlafaxin e. Since she still have them will increase the dose of venlafaxin e to 75 mg Screening mammography 24 923186 Z12.31 Overweight 504086080 E66 .3 Counseled About weight loss, diet and excercise. refused administrative support specialist consult. Leukocytes in urine 2757 60073 R82.71 [id number] MD Dimitris Salazar (Adult Med) [address] [place] [address] [id number] 0 05/08/2017 11:31:35 05/08/2017 13:06:46 Chronic obstructive pulmonary disease 77698126 J44.9 Stable. Menopausal flushing 1983 89862 N95.1 Under the care of his gynecologi st. Gastroesop hageal reflux disease 632264949 K21.9 Osteoarthr itis of knee 750200175 M17.9 Under the care of a orthopedic care. Lumbar spondylosis 05472 0009 M47.896 Under the care of his pain management clinic. Diabetic p eripheral neuropathy 167581950 E11.40 Got used to it she said Diabetes mellitus 140201 09 E13.620 E11.40 On diabetic diet and on medication s as prescribed . Administra tion of influenza vaccine 45302694 Z23 Patient tolerated. Irritable bowel syndrome with diarrhea 866626371 K58.0 She is going to see her GI specialist in the near future, who is familiar with her case. Sh kishor luna she can not take linzers. Chronic di sease of skin 784927462 L98.9 Dyslipidemia 428824985 E 78.5 Low saturated fat diet. [id number] Tarun Ann MD [facility] (Adult Med) [address] [place] [address] 12534-214 0 05/18/2017 15:55:54 05/22/2017 11:41:26 Knee pain 55953356 M25.562 Under the care of hr network specialist . lump in the left popliteal fossa, posible Carrion cyst. [id number] Tarun Ann MD [facility] (Adult Med) [address] [place] [address] 14249-230 0 06/14/2017 16:09:15 06/15/2017 10:10:34 Diabetes mellitus 17960586 E11.41 hga1c is 5.9% 06-14-2017 , she is informed in office. Has enough medication s. Diabetic p eripheral neuropathy 614906929 E11.40 Got used to it she said, comfortabl e in wearing proper shoes. Synovial c yst of popliteal space 38444738 M71.22 Carrion cyst. getting bigger since last visit. She does not want any pill today., She prefers Dr. Precious Corey JR MD at [facility]. [id number] Tarun Ann MD [facility] (Adult Med) [address] [place] [address] 68479-039 0 10/17/2017 15:45:48 10/17/2017 17:23:46 Chronic obstructive pulmonary disease 68953773 J44.9 Stable. nERVE SMOKED, . on ventolin. Gastroesop hageal reflux disease 107341724 K21.9 Osteoarthr itis of knee 406357375 M17.9 Under the care of a orthopedic care. Lumbar spondylosis 38992 0009 M47.896 Under the care of his pain management clinic. Diabetic p eripheral neuropathy 016607459 E11.40 Got used to it she said, comfortabl e in wearing proper shoes. Type 2 rosalia betes mellitus 86330369 E11.9 dIABETIC DIET, WILL refer FOR THE ANNUAL EYE EX. Diabetes mellitus 878219 09 E11.41 hga1c is 5.9% 06-14-2017 , she is informed in office. Has enough medication s. Essential hypertension 23850472 I10 Low salt diet. Dyslipidem ia due to type 2 diabetes mellitus 5232454837 02 E78.5 Dyslipidemia 954016413 E 78.5 Low saturated fat diet. Rheumatoid arthritis 698 83202 M06.9 UNDER THE CARE OF [facility]. [id number] MD Dimitris Salazar (Adult Med) [address] [place] [address] 60725-754 0 04/19/2018 15:06:07 04/19/2018 15:50:58 Chronic tension-type headache 615926203 G44.158 [id number] [facility] [address] [place] [address] [id number] 0 09/27/2018 14:31:49 09/27/2018 17:03:26 Gynecologic examination 20418610 Z01.419 Diabetic p eripheral neuropathy 510477244 E11.40 Rheumatoid arthritis 698 83323 M06.9 Chronic ob structive pulmonary disease 58576413 J44.9 Menopausal syndrome 1237 83568 N95.9 Type 2 rosalia betes mellitus 71282967 E11.9 Screening mammography 24 155014 Z12.31 Exposure t o sexually transmissible disorder 274869429 Z20.2 Urinary tr act infectious disease 63549676 N39.0 Vaginal dryness 90143696 N89.8 [id number] Marc Shanks (PIER MASTER ASSISTANT) [address] [place] [address] [id number] 0 10/04/2018 10:20:25 10/04/2018 14:41:55 Recurrent urinary tract infection 558351174 N39.0 Migraine 99483583 G43.90 9 [id number] MD Dimitris Salazar (Adult Med) [address] [place] [address] [id number] 0 10/09/2018 13:37:34 10/10/2018 09:20:36 Diabetes mellitus 43080368 E11.41 hga1c is 5.9% 06-14-2017 , she is informed in office. Has enough medication s. Blood sugar is 141 mg%. 10-09-2018 .type 2 well controlled , no medical contraindi cation for left eye cataract operation, will contact her ophthalmol ogist Dr. Watts office today. [id number] [facility] [address] [place] [address] 90998-442 0 01/04/2019 11:44:38 01/04/2019 12:50:56 Elbow fracture 571924393 S42.402A [id number] [facility] [address] [place] [address] 46388-618 0 03/05/2019 16:07:19 03/06/2019 08:50:00 Irritable bowel syndrome characterized by alternating bowel habit 025482374 K58.9 Discussed with patient. [id number] Tarun Ann MD [facility] (Adult Med) [address] [place] [address] 63595-584 0 04/11/2019 10:48:45 04/12/2019 12:49:00 Irritable bowel syndrome characterized by alternating bowel habit 858757430 K58.9 Discussed with patient. She has enough dicyclomin e and questran refilled. Type 2 rosalia betes mellitus without complication 249743587 E11.9 [id number] MD Dimitris Salazar (Adult Med) [address] [place] [address] [phone] 0 06/14/2019 10:19:56 07/08/2019 15:51:59 Chronic obstructive pulmonary disease 18301374 J44.9 Stable. nERVE SMOKED, . on ventolin. Gastroesop hageal reflux disease 603649482 K21.9 Stable. Osteoarthr itis of knee 497444268 M17.9 Under the care of a orthopedic care. Lumbar spondylosis 66992 0009 M47.896 Under the care of his pain management clinic. Chronic sciatica 0436175 01 M54.30 Under the care of pain management clinic. Diabetic p eripheral neuropathy 825376264 E11.40 Got used to it she said, comfortabl e in wearing proper shoes. Hyperlipidemia 31595119 E78.5 Low saturated fat diet, exercise and lose some weight. Essential hypertension 71061081 I10 Low salt diet. On atenolol, has enough medication s. Diabetes mellitus 057293 09 E11.41 hga1c is 5.9% 06-14-2017 , she is informed in office. Has enough medication s. Blood sugar is 141 mg%. 10-09-2018 .type 2 well controlled , no medical contraindi cation for left eye cataract operation, will contact her ophthalmol ogist Dr. Watts office today. Blood sugar 151 mg%. 05-14-2019 . Migraine 72179547 G43.90 9 Stable. Administra tion of influenza vaccine 56214551 Z23 Patient tolerated the shot well. [id number] [facility] [address] [place] [address] 33805-346 0 07/26/2019 10:02:30 07/29/2019 10:05:11 Herpes zoster 7190452 B02.9 Chronic cough 40162589 R 05 [id number] [facility] ([facility] [address] [place] [address] 62576-832 0 08/21/2019 12:09:33 08/21/2019 14:08:55 Gynecologic examination 43800967 Z01.419 Screening mammography 24 471513 Z12.31 Screening for osteoporosis 649200401 Z13.820 Atrophic vaginitis 38537 000 N95.2 Menopausal flushing 1984 89813 N95.1 Menopausal syndrome 1237 91864 N95.9 Diabetes mellitus 025879 09 E11.41 Rheumatoid arthritis 698 01967 M06.9 Chronic ob structive pulmonary disease 06178147 J44.9 [id number] MD Dimitris Salazar (Adult Med) [address] [place] [address] 15692-727 0 09/03/2019 09:58:15 09/04/2019 14:30:23 Chronic pain 71396948 G89.29 Pain all over. Migraine 58092028 G43.90 9 Stable. She wants to be referred to Dr. Cruz. Pain in left foot 996610 0149 92438 M79.672 Recovering , able to walk without assistance . Type 2 rosalia betes mellitus without complication 841066582 E11.9 Diabetic diet, exercise, keep the weight down. [id number] MD Dimitris Salazar (Adult Med) [address] [place] [address] 42591-805 0 10/07/2019 10:27:57 10/08/2019 15:07:30 Senile osteoporosis 99556273 M81.0 postmenopa usal. [id number] MD Dimitris Salazar (Adult Med) [address] [place] [address] [phone] 0 12/03/2019 10:25:14 12/04/2019 04:25:36 Diabetes mellitus 50905068 E11.41 hga1c is 5.9% 06-14-2017 , she is informed in office. Has enough medication s. Blood sugar is 141 mg%. 10-09-2018 .type 2 well controlled , no medical contraindi cation for left eye cataract operation, will contact her ophthalmol ogist Dr. Watts office today. Blood sugar 151 mg%. 05-14-2019 . Essential hypertension 59344521 I10 Low salt diet. On atenolol, has enough medication s. Type 2 rosalia betes mellitus without complication 561118434 E11.9 Diabetic diet, exercise, keep the weight down. [id number] MD Dimitris Salazar (Adult Med) [address] [place] [address] [phone] 0 02/12/2020 10:04:35 02/13/2020 14:34:06 Chronic obstructive pulmonary disease 52252303 J44.9 Stable. nERVE SMOKED, . on ventolin. [id number] MD Dimitris Salazar (Adult Med) [address] [place] [address] [phone] 0 03/27/2020 09:40:53 03/30/2020 18:45:32 Migraine 98142487 G43.909 Stable. She wants to be referred to Dr. Cruz. Seronegati ve rheumatoid arthritis 612252558 M06.00 Under the care of her rrheumatol ogist. Diabetic p eripheral neuropathy 079560233 E11.40 Got used to it she said, comfortabl e in wearing proper shoes. Essential hypertension 89027988 I10 Low salt diet. On atenolol, has enough medication s. [id number] Murphy Lindquist MA [facility] (Adult Med) [address] [place] [address] [phone] 0 06/16/2020 15:34:19 06/17/2020 10:55:18 Chronic obstructive pulmonary disease 54111900 J44.9 Stable. nERVE SMOKED, . on ventolin. Chronic he adache disorder 287095342 G44.89 Wants refill butalbital . [id number] Tarun Ann MD [facility] (Adult Med) [address] [place] [address] [phone] 0 08/26/2020 08:09:02 08/27/2020 10:10:30 Pain of ear 185151728 H92.09 Both ears pain, Z natalee failed to do the trick., agreed for the ENT referral Dr. higgins. [id number] Tarun Ann MD [facility] (Adult Med) [address] [place] [address] [phone] 0 10/19/2020 08:22:56 10/20/2020 10:13:56 Chronic obstructive pulmonary disease 45858430 J44.9 Stable. nERVE SMOKED, . on ventolin. Chronic sciatica 0355392 01 M54.30 Under the care of pain management clinic. Diabetes mellitus 421872 09 E11.41 hga1c is 5.9% 06-14-2017 , she is informed in office. Has enough medication s. Blood sugar is 141 mg%. 10-09-2018 .type 2 well controlled , no medical contraindi cation for left eye cataract operation, will contact her ophthalmol ogist Dr. Watts office today. Blood sugar 151 mg%. 05-14-2019 . On pioglitazo ne. Diabetic p eripheral neuropathy 398485836 E11.40 Got used to it she said, comfortabl e in wearing proper shoes. Essential hypertension 75877101 I10 Low salt diet. On atenolol, has enough medication s. Gastroesop hageal reflux disease 581677885 K21.9 Stable. On omeprazole . Hyperlipidemia 99516300 E78.5 Low saturated fat diet, exercise and lose some weight. Lumbar spondylosis 97232 0009 M47.896 Under the care of his pain management clinic. Menopausal syndrome 1237 81079 N95.9 Under the care of her gynecologi st. Migraine 22642616 G43.90 9 Stable. She wants to be referred to Dr. Cruz. On butalbital -acetamino phen -caffeine. Osteoarthr itis of knee 262396329 M17.9 Under the care of a orthopedic care., on meloxicam [id number] Tarun Ann MD [facility] (Adult Med) [address] [place] [address] [phone] 0 01/13/2021 11:22:37 01/14/2021 11:24:59 Bilateral tinnitus 0884617018 102 H93.13 Will refer to ENT. She agreed,. Chronic sciatica 4152776 01 M54.30 Under the care of pain management clinic. Cystocele 348539239 N81. 10 Under the care of her gynecologi st. Diabetes mellitus 366178 09 E11.41 hga1c is 5.9% 06-14-2017 , she is informed in office. Has enough medication s. Blood sugar is 141 mg%. 10-09-2018 .type 2 well controlled , no medical contraindi cation for left eye cataract operation, will contact her ophthalmol ogist Dr. Watts office today. Blood sugar 151 mg%. 05-14-2019 . On pioglitazo ne. Diabetic p eripheral neuropathy 557185348 E11.40 Got used to it she said, comfortabl e in wearing proper shoes. Essential hypertension 10909713 I10 Low salt diet. On atenolol, has enough medication s. BP is 110/70 mm HG. 01-13-2021 . Gastroesop hageal reflux disease 053865546 K21.9 Stable. On omeprazole . Hyperlipidemia 60466067 E78.5 Low saturated fat diet, exercise and lose some weight. Insomnia 315762046 G47.0 0 On diazepam.f rom her psychiatri st. Lumbar spondylosis 59384 0009 M47.896 Under the care of his pain management clinic. Migraine 11997169 G43.90 9 Stable. She wants to be referred to Dr. Cruz. On butalbital -acetamino phen -caffeine. Osteoarthritis 204083075 M19.90 On meloxicam. Cervical arthritis 07080 1000 M46.92 She agreed for the referral to Nathen CABRERA . [id number] MD Dimitris Salazar (Adult Med) [address] [place] [address] [phone] 0 04/05/2021 14:34:31 04/07/2021 17:19:42 Chronic obstructive pulmonary disease 89410064 J44.9 Stable. never SMOKED, . on ventolin. Chronic sciatica 7747708 01 M54.30 Under the care of pain management clinic. Cystocele 523294654 N81. 10 Under the care of her gynecologi st. Diabetes mellitus 608227 09 E11.41 hga1c is 5.9% 06-14-2017 , she is informed in office. Has enough medication s. Blood sugar is 141 mg%. 10-09-2018 .type 2 well controlled , no medical contraindi cation for left eye cataract operation, will contact her ophthalmol ogist Dr. Watts office today. Blood sugar 151 mg%. 05-14-2019 . On pioglitazo ne. Diabetic p eripheral neuropathy 116824932 E11.40 Got used to it she said, comfortabl e in wearing proper shoes. Essential hypertension 20871207 I10 Low salt diet. On atenolol, has enough medication s. BP is 110/70 mm HG. 01-13-2021 . Blood pressure is 130/80 mm Hg. today in this office. Gastroesop hageal reflux disease 264902149 K21.9 Stable. On omeprazole . Hyperlipidemia 37549979 E78.5 Low saturated fat diet, exercise and lose some weight. Insomnia 734889872 G47.0 0 On diazepam.f rom her psychiatri st. Lumbar spondylosis 13170 0009 M47.896 Under the care of his pain management clinic. Menopausal syndrome 1237 99676 N95.9 Under the care of her gynecologi st. Migraine 45218105 G43.90 9 Stable. She wants to be referred to Dr. Cruz. On butalbital -acetamino phen -caffeine. Osteoarthritis 230839069 M19.90 On meloxicam. under the care of her specialist . [id number] MD Dimitris Salazar (Adult Med) [address] [place] [address] [phone] 0 06/23/2021 16:23:05 06/24/2021 05:33:35 Chronic obstructive pulmonary disease 60897827 J44.9 Stable. never SMOKED, . on ventolin. Chronic sciatica 6654743 M54.30 Under the care of pain management clinic. Cystocele 027969789 N81. 10 Under the care of her gynecologi st. Diabetes mellitus 193650 09 E11.41 hga1c is 5.9% 06-14-2017 , she is informed in office. Has enough medication s. Blood sugar is 141 mg%. 10-09-2018 .type 2 well controlled , no medical contraindi cation for left eye cataract operation, will contact her ophthalmol ogist Dr. Watts office today. Blood sugar 151 mg%. 05-14-2019 . On pioglitazo ne. Diabetic p eripheral neuropathy 495678736 E11.40 Got used to it she said, comfortabl e in wearing proper shoes. Essential hypertension 84908680 I10 Low salt diet. On atenolol, has enough medication s. BP is 110/70 mm HG. 01-13-2021 . Blood pressure is 130/80 mm Hg. today in this office. BP is 132/80 mm Hg 06-23-2021 . Mass of neck 581746992 R 22.1 lump on the posterior neck when she turns. Insomnia 534462516 G47.0 0 On diazepam.f rom her psychiatri st. Hopefully her neurologis t will take care of this prescripti on. Lesion of skin of face 3527779646 06 L98.9 On her nose , agreed to see a dermatolog ist. [id number] Tarun Ann MD [facility] (Adult Med) [address] [place] [address] 07/22/2021 11:56:29 07/23/2021 10:31:05 Rheumatoid arthritis 90906598 M06.09 Insurance referral request Degenerati ve joint disease involving multiple joints M15.9 Stable. Osteoarthritis 388104960 M19.90 On meloxicam. under the care of her specialist . Chronic ob structive pulmonary disease 04572298 J44.9 Stable. never SMOKED, . on ventolin. Chronic sciatica 0506894 M54.30 Under the care of pain management clinic. Recurrent urinary tract infection 190137262 N39.0 Will send urine for culture as back up, empirical ABT ordered she agreed, [id number] MD Dimitris Salazar (Adult Med) [address] [place] [address] [phone] 0 11/24/2021 12:41:51 12/06/2021 11:53:30 Acute respiratory infections 811516924 J22 She agreed to try the medication s as ordered and chest x ray. Since she is using immune suppressio n agent for her RA. Rheumatoid arthritis 698 93899 M06.09 Insurance referral request Chronic ob structive pulmonary disease 76911664 J44.9 Stable. never SMOKED, . on ventolin. Diabetes mellitus 790996 09 E11.41 hga1c is 5.9% 06-14-2017 , she is informed in office. Has enough medication s. Blood sugar is 141 mg%. 10-09-2018 .type 2 well controlled , no medical contraindi cation for left eye cataract operation, will contact her ophthalmol ogist Dr. Watts office today. Blood sugar 151 mg%. 05-14-2019 . On pioglitazo ne. [id number] [facility] [address] [place] [address] [phone] 0 01/10/2022 13:42:36 01/11/2022 10:52:28 Aphthous ulcer of mouth 858934540 K12.0 She agreed to try med as ordered. Contact dermatitis 56182 004 L25.9 Possible poison linda , or poison sumac, or poison oak. [id number] MD Dimitris Salazar (Adult Med) [address] [place] [address] [phone] 0 06/07/2022 11:54:25 06/08/2022 12:21:25 Hypertensive disorder 96505976 I10 As 06-07-2022 . blood pressure is 158/90 , she already got 90 days of atenolol, has normal renal function, will add losartan. Dyslipidemia 539169967 E 78.5 Low saturated fat diet.She is on diabetic diet, will add statin to low cholestero l to minimize the cardiovasc ular risk, she agreed. Contusion of left knee 5295854912 8600230 S80.02XD [place] left knee and proximal tibia is still swollen and sore. Will x ray. PT and orthopedic referral. Diabetes mellitus 350861 09 E11.41 hga1c is 5.9% 06-14-2017 , she is informed in office. Has enough medication s. Blood sugar is 141 mg%. 10-09-2018 .type 2 well controlled , no medical contraindi cation for left eye cataract operation, will contact her ophthalmol ogabbey Watts office today. Blood sugar 151 mg%. 05-14-2019 . On pioglitazo ne. [id number] MD Dimitris Salazar (Adult Med) [address] [place] [address] [phone] 0 08/09/2022 12:00:30 08/10/2022 14:59:33 Diabetes mellitus 32455521 E11.41 hga1c is 5.9% 06-14-2017 , she is informed in office. Has enough medication s. Blood sugar is 141 mg%. 10-09-2018 .type 2 well controlled , no medical contraindi cation for left eye cataract operation, will contact her ophthalmol ogabbey Watts office today. Blood sugar 151 mg%. 05-14-2019 . On pioglitazo ne. Obesity 830335877 E66.9 BMI is 31. she has been advised to watch her diabetic diet, exercise and keep the weight down. Tremor 20224057 R25.1 Involuntar y shaking of right leg . wants to see neurologis asha Clemons. In [place]. Urge incon tinence of urine 09778689 N39.41 Oxybutynin is not working. will try myrbetriq. [id number] MD Dimitris Salazar (Adult Med) [address] [place] [address] [phone] 0 11/08/2022 13:57:09 11/09/2022 09:54:32 Diabetes mellitus 40492165 E11.41 hga1c is 5.9% 06-14-2017 , she is informed in office. Has enough medication s. Blood sugar is 141 mg%. 10-09-2018 .type 2 well controlled , no medical contraindi cation for left eye cataract operation, will contact her ophthalmol ogabbey Watts office today. Blood sugar 151 mg%. 05-14-2019 . On pioglitazo ne. Diabetic p eripheral neuropathy 722725737 E11.40 Got used to it she said, comfortabl e in wearing proper shoes. Essential hypertension 66652329 I10 Low salt diet. On atenolol, has enough medication s. BP is 110/70 mm HG. 01-13-2021 . Blood pressure is 130/80 mm Hg. today in this office. BP is 132/80 mm Hg 06-23-2021 .. As 11-08-22, BP is 142/70, [facility] monitor BP. Hyperlipidemia 47653252 E78.5 Low saturated fat diet, exercise and lose some weight. Chronic ob structive pulmonary disease 59977976 J44.9 Stable. never SMOKED, . on ventolin. nerve smokes, but [place] [employer] [id number] Tarun Ann MD [facility] (Adult Med) [address] [place] [address] [phone] 0 12/12/2022 14:53:32 12/15/2022 16:45:09 Diabetes mellitus 36078433 E11.41 hga1c is 5.9% 06-14-2017 , she is informed in office. Has enough medication s. Blood sugar is 141 mg%. 10-09-2018 .type 2 well controlled , no medical contraindi cation for left eye cataract operation, will contact her ophthalmol ogist Dr. Watts office today. Blood sugar 151 mg%. 05-14-2019 . On pioglitazo ne. Rheumatoid arthritis 698 95221 M06.09 Insurance referral request . Under the care of her rheumatolo gist. Essential hypertension 59562767 I10 Low salt diet. On atenolol, has enough medication s. BP is 110/70 mm HG. 01-13-2021 . Blood pressure is 130/80 mm Hg. today in this office. BP is 132/80 mm Hg 06-23-2021 .. As 11-08-22, BP is 142/70, vu monitor BP. As 12-12-22, BP is 130/68 , to continue current med. Such as atenolol and losratan. Gastroesop hageal reflux disease 646745579 K21.9 Stable. On omeprazole . [id number] MD Dimitris Salazar (Adult Med) [address] [place] [address] [phone] 0 02/13/2023 16:55:05 02/16/2023 12:55:53 Pain of left knee joint 7501426435 20618 M25.562 She is going to see a specialist . appointmen t been made. Type 2 rosalia betes mellitus 15404002 E11.9 DIABETIC DIET, WILL refer FOR THE ANNUAL EYE EX. [id number] MD Dimitris Salazar (Adult Med) [address] [place] [address] [phone] 0 06/23/2023 12:04:37 06/27/2023 16:16:12 Allergic rhinitis 10934425 J30.9 sinus congestion , with post nasal drainage. used to be second hand smoker. Use albuterol as rescue as needed. Osteoarthr itis of knee 032403363 M17.9 Under the care of a orthopedic care., on meloxicam and her rheumatolo gist. Obesity 629529984 E66.9 BMI is 31. she has been advised to watch her diabetic diet, exercise and keep the weight down. BMI is 33.8 today 06-23-23. Mammogram declined 26105 5004 Z53.20 She declined 06-23-23. Influenza vaccination declined 609465894 Z28.21 She declined today 06-23-23. [id number] [facility] [address] [place] [address] [phone] 0 08/29/2023 12:02:08 08/31/2023 15:24:40 Abdominal mass 684036899 R19.00 US of abdomen, Go to ER in case any time for any concern, she agreed. Health Concerns Section Related Observation LastModified by Organization Detai ls LastModified Time None Recorded Concern Status LastModified by Organization Details LastModified Time None Recorded Advance Directives Directive N: Payers Encounter Date Sequence Insurance Name Policy Number Policy Mejia Covered Member ID Mejia Member ID Guarantor Name 11/08/2022 1 [facility] (MEDICARE REPLACEMENT/A DVANTAGE - HMO) [id number] Sunshine Wick [id number] Sunshine Wick 12/12/2022 1 [employer] (MEDICARE REPLACEMENT/A DVANTAGE - HMO) [id number] Sunshine Juliane Wick [id number] Sunshine Wick 02/13/2023 1 [facility] (MEDICARE REPLACEMENT/A DVANTAGE - HMO) [id number] Sunshine K Wick [id number] Sunshine Wick 06/23/2023 1 [facility] (MEDICARE REPLACEMENT/A DVANTAGE - HMO) [id number] Sunshine K Wick [id number] Sunshine Wick 08/29/2023 1 [facility] (MEDICARE REPLACEMENT/A DVANTAGE - HMO) [id number] Sunshine K Wick [id number] Sunshine Wick Notes Date Note Type Note Provider Name and Address Organization Details Recorded Time 12/12/2022 text/html Office visit, allergic to cipro, penicillins, poison linda, oak and sumac extracts, also has rheumatoid arthritis. under the care of her animal husbandry manager. gained some weight, used to be second -hand smoker hen worked at [employer] in her younger days. Refilled inhaler, but dose not thank she is ready to see a lung specialist yet. also type 2 DM A1 c is 6.5. Tarun Ann MD Attn: [address]ing[address] [place], [address], [facility] [place] 12/12/2022 16:11:08 02/13/2023 text/html Office visit, allergic to cipro, penicillins, poison linda extract, poison oak extract and poison sumac extract. Had leg knee Carrion's cyst aspirated, and going to see a network specialist. Also wants to refill med for her type 2 DM ,pioglitazone. Tarun Ann MD Attn: Accounting[address] [place], [address], [place] 02/13/2023 17:39:38 06/23/2023 text/html Office visit. allergic to penicillin, cipro. poison linda extract, poison oak extract and poison sumac extract. had cataracts operations, can see well. Got IV infusion/mon at her animal husbandry manager office, for her osteoarthritis, now her left knee is not hurting any more. Has enough med refills. No chest pain, no difficulty of breathing, No fever. No other complaints. ROS as noted in HPI. sinus congestion . Tarun Ann MD Attn: Accounting[address] [facility], [place], [address], [facility] [place] 06/23/2023 12:49:46 08/29/2023 text/html Office visit, allergic to cipro. penicillins. poison linda extract. poison oak extract, and poison sumac extract. C/C lower abdomen mass felling. , history of total hysterectomy. No other complaints. ROS as noted in the HPI.Her A1c is 5.7 % today, she is informed. Tarun Ann MD Attn: Accounting[address] [facility], [place], [address], [facility] [place] 08/29/2023 13:00:22 OBGyn Episode Ob Episode Information Episode Created Date Number of Fetuses Patient Bloodtype Patient rh Status Prepregnancy Weight lbs Domestic Partner Domestic Partner Phone Father Name Hand Funnel Coater Status 02/16/20 16 1 CLOSED Fetus Data First Name Last Name Admitted to NICU Weight (g) Sex Living Outcome Pediatric Complications Fetus ID Race Codes Race Delivery Type 2721.55 2 F Full Term [id number] Vaginal Nhan Calculation Initial Nhan Date Initial Exam Date Initial Exam Provider Initial Ultrasound Date Last Menstrual Period Date Ultra Sound Weeks Gestation 0 Eighteen To Twenty Week Nhan Update Ultra Sound Date Fundal Height At Umbil Quickening Date Ultra Sound Latest Weeks Gestation Final Nhan Confirmed By Final Nhan Confirmed Date Final Nhan Date Ultra Sound Latest Days Gestation 0 0 Menstrual History Last Menstrual Date Menses Monthly On Bcp Conception Prior Menses Frequency Hcg Plus Date Menarche Onset Age Delivery Information Delivery Date Delivery Type Labor Anesthesia Weeks Gestation Incision Type Labor Labor Length Hrs Delivered By Post Complications Tubal Sterilization Discharge Date Comments 3 General false Discharge Information Feeding Method Contraceptive Method Maternal HG B and HCT Levels Ob Episode Information Episode Created Date Number of Fetuses Patient Bloodtype Patient rh Status Prepregnancy Weight lbs Domestic Partner Domestic Partner Phone Father Name Hand Funnel Coater Status 02/16/20 16 1 CLOSED Fetus Data First Name Last Name Admitted to NICU Weight (g) Sex Living Outcome Pediatric Complications Fetus ID Race Codes Race Delivery Type 3628.73 6 F Prematur e 09806 Vaginal Nhan Calculation Initial Nhan Date Initial Exam Date Initial Exam Provider Initial Ultrasound Date Last Menstrual Period Date Ultra Sound Weeks Gestation 0 Eighteen To Twenty Week Nhan Update Ultra Sound Date Fundal Height At Umbil Quickening Date Ultra Sound Latest Weeks Gestation Final Nhan Confirmed By Final Nhan Confirmed Date Final Nhan Date Ultra Sound Latest Days Gestation 0 0 Menstrual History Last Menstrual Date Menses Monthly On Bcp Conception Prior Menses Frequency Hcg Plus Date Menarche Onset Age Delivery Information Delivery Date Delivery Type Labor Anesthesia Weeks Gestation Incision Type Labor Labor Length Hrs Delivered By Post Complications Tubal Sterilization Discharge Date Comments 2 General false 8 Discharge Information Feeding Method Contraceptive Method Maternal HG B and HCT Levels Ob Episode Information Episode Created Date Number of Fetuses Patient Bloodtype Patient rh Status Prepregnancy Weight lbs Domestic Partner Domestic Partner Phone Father Name Hand Funnel Coater Status 02/16/20 16 1 CLOSED Fetus Data First Name Last Name Admitted to NICU Weight (g) Sex Living Outcome Pediatric Complications Fetus ID Race Codes Race Delivery Type 4082.32 8 M Full Term [id number] Vaginal Nhan Calculation Initial Nhan Date Initial Exam Date Initial Exam Provider Initial Ultrasound Date Last Menstrual Period Date Ultra Sound Weeks Gestation 0 Eighteen To Twenty Week Nhan Update Ultra Sound Date Fundal Height At Umbil Quickening Date Ultra Sound Latest Weeks Gestation Final Nhan Confirmed By Final Nhan Confirmed Date Final Nhan Date Ultra Sound Latest Days Gestation 0 0 Menstrual History Last Menstrual Date Menses Monthly On Bcp Conception Prior Menses Frequency Hcg Plus Date Menarche Onset Age Delivery Information Delivery Date Delivery Type Labor Anesthesia Weeks Gestation Incision Type Labor Labor Length Hrs Delivered By Post Complications Tubal Sterilization Discharge Date Comments 5 General false 1 Discharge Information Feeding Method Contraceptive Method Maternal HG B and HCT Levels
--- OUTSIDE RECORDS SUMMARY | 2024-10-09 00:38 | XMS_ITS | Patient Health Summary ---
Author Organization [facility] Address [address] [place] [address] Care Team Providers Care Soldering Machine Setter Name Role Phone Tarun Lerma MD Primary Care Provider [phone] Note from [facility] [place] [facility] [place],non-owned Affiliates and Associated Physician Practices is amultiple site organization consisting of ambulatory clinics and hospital sitesin [place], [place], [place] and [place]. This disclosure is being madepursuant to the Care Everywhere program and may not contain all information available regarding this patient. Last updated 18.[facility] Allergies * Cephalexin(Diarrhea) -Low Criticality * Ciprofloxacin(Fever/ hives) * Extract Of Poison Alivia(Itching) -High Criticality * Penicillins(Rash) -Medium Criticality Medications * Be aware that medications may not be up to date on this document. Alwaysverify current medications with the patient. * atenolol (TENORMIN) 100 MG tablet(Started 03/21/2016) Take 1 Tab by mouth * vitamin D3 (CHOLECACIFEROL) 5000 UNITS Take 1 Tab by mouth once daily * DHEA 50 MG TABS Take 2 Tabs by mouth * diazePAM (VALIUM) 10 MG tablet(Started 01/30/2016) Take 1 Tab by mouth * glipiZIDE CR 24hr (GLIPIZIDE XL) 2.5 MG tablet(Started 01/06/2016) Take 1 Tab by mouth * meloxicam (MOBIC) 15 MG tablet(Started 03/21/2016) Take 1 Tab by mouth * tapentadol (NUCYNTA) 50 MG tablet(Started 02/25/2016) Take 1 Tab by mouth every 8 hours * omeprazole (PRILOSEC) 40 MG capsule Take 40 mg by mouth at bedtime * traZODone (DESYREL) 50 MG tablet(Started 03/04/2016) Take 1 Tab by mouth at bedtime * ibuprofen (MOTRIN) 600 MG tablet(Started 05/20/2016) Take 1 Tab by mouth every 6 hours as needed for Pain * docusate sodium (COLACE) 100 MG capsule(Started 05/20/2016) Take 1 Cap by mouth 2 times daily 3 refills left Active Problems No known active problems Social History Tobacco Use Types Packs/Day Years Used Date Smoking Tobacco: Never Tobacco Cessation:Counseling Given: Not Answered Alcohol Use Standard Drinks/Week Comments No 0 (1 standard drink = 0.6 oz pur e alcohol) Sex and Gender Information Value Date Recorded Sex Assigned at Not on file Gender Identity Not on file Sexual Orientation Not on file Last Filed Vital Signs Vital Sign Reading Time Taken Comments Blood Pressure 123/75 03/14/2017 3:28 PM CDT Pulse 70 07/26/2016 12:59 PM BILINGUAL TEACHER AIDE Temperature 36.8 C (98.2 F) 07/05/2016 2:31 PM BILINGUAL TEACHER AIDE Respiratory Rate 18 05/20/2016 11:59 AM CDT Oxygen Saturation 98% 07/26/2016 12:59 PM BILINGUAL TEACHER AIDE Inhaled Oxygen Concentration - - Weight 90.7 kg (200 lb) 03/07/2023 10:20 AM CDT Height 165.1 cm (5' 5 ) 03/07/2023 10:20 AM CDT Body Mass Index 33.28 03/07/2023 10:20 AM CDT Medical Devices Implanted Type Area Preventive Maintenance Coordinator Device Identifier Shelf Expiration Date Model / Serial / Lot Mesh Srg Upsylon 35.4cm [id number] 2.8sq Implanted:Qty: 1 on 05/19/2016 by Preeti Rudolph MD at [facility] [employer] 02/03/2019 [id number] / / [id number] Procedures * XR KNEE LEFT 3VW(Performed 03/07/2023) Performed for Left knee pain, unspecified chronicity * LAB HISTORICAL RESULTS-ONBASE(Performed 03/14/2017) * LAB HISTORICAL RESULTS-ONBASE(Performed 03/14/2017) * CULTURE URINE COMPREHENSIVE(Performed 03/14/2017) * CULTURE URINE(Performed 08/22/2016) * CBC W AUTO DIFFERENTIAL(Performed 07/18/2016) * CBC W AUTO DIFFERENTIAL(Performed 07/18/2016) * CT ABDOMEN W CONTRAST(Performed 07/18/2016) * CREATININE BLOOD - POCT (IP) [facility](Performed 07/18/2016) * APHERESIS/TRANSFUSION ORDER(Performed 05/21/2016) * GLUCOSE - POINT OF CARE(Performed 05/20/2016) * GLUCOSE - POINT OF CARE(Performed 05/20/2016) * LAB HISTORICAL RESULTS-ONBASE(Performed 05/20/2016) * GLUCOSE - POINT OF CARE(Performed 05/19/2016) * GLUCOSE - POINT OF CARE(Performed 05/19/2016) * GLUCOSE - POINT OF CARE(Performed 05/19/2016) * GLUCOSE - POINT OF CARE(Performed 05/19/2016) * CYSTOSCOPY (FLEXIBLE/RIGID)(Performed 05/19/2016) Performed for Cystocele, unspecified cystocele location, Vaginal vault prolapse * LAPAROSCOPIC ABDOMINAL SACRAL COLPOPEXY(Performed 05/19/2016) Performed for Cystocele, unspecified cystocele location, Vaginal vault prolapse * GLUCOSE - POINT OF CARE(Performed 05/19/2016) * BLOOD TYPE VERIFICATION(Performed 05/12/2016) * TYPE + SCREEN PANEL(Performed 05/12/2016) Performed for Pre-op testing * CBC W AUTO DIFFERENTIAL(Performed 05/12/2016) Performed for Pre-op testing * URINALYSIS AUTO - POINT OF CARE (AMB) [facility](Performed 04/26/2016) * URINALYSIS AUTO - POINT OF CARE (AMB) [facility](Performed 03/22/2016) Results * XR KNEE LEFT 3VW (03/07/2023 10:25 AM CDT) Anatomical Region Laterality Modality Lower Extremity Computed Radiogr aphy Narrative 03/07/2023 10:24 AM CDT Galina Browning, RT(R) 03/22/2023 2:30 PM See progress notes for results Kinjal Diop MD DIAGNOSTIC IMAGING O RDERARAFAELA * LAB HISTORICAL RESULTS-ONBASE (03/14/2017) Only the most recent of3 resultswithin the time period is included. 03/14/2017 Historical Provider LAB - CHEMISTRY O RDYOHANA Performing Organization Address [facility] Co de Phone Number [place] [phone] [address] * CULTURE URINE COMPREHENSIVE (03/14/2017) Culture SEE NOTE [facility] ([facility]) Comment: CULTURE, URINE, SPECIAL MICRO NUMBER: [id number] TEST STATUS: FINAL SPECIMEN SOURCE: URINE SPECIMEN QUALITY: ADEQUATE RESULT: No Growth Test Performed at: [facility] [address] PHILIP REYES MD 03/14/2017 03/15/2017 4:0 7 AM CDT Preeti Rudolph MD LAB - MICROBIOLOGY O RDYOHANA Performing Organization Address [facility] de Phone Number [facility] ([facility]) * CULTURE URINE (08/22/2016 1:54 PM BILINGUAL TEACHER AIDE) Urine Culture Routine SEE NOTE [facility] ([facility]) Comment: CULTURE, URINE, ROUTINE MICRO NUMBER: [id number] TEST STATUS: FINAL SPECIMEN SOURCE: URINE SPECIMEN QUALITY: ADEQUATE RESULT: Three or more organisms present, each greater than 10,000 cu/mL. May represent normal judi contamination from external genitalia. No further testing is required. REPORT COMMENT: SPECIMEN TYPE->URINE Test Performed at: [facility] [address] [place] [address] KINJAL CHINO DO,MPH Urine specimen (specimen) URINE SPECIMEN OBTAINED BY CLEAN CATCH PROCEDURE / Unknown 08/22/2016 1:54 PM BILINGUAL TEACHER AIDE 08/22/2016 1:55 PM BILINGUAL TEACHER AIDE Narrative [facility] ([facility]) - 08/24/2016 8:00 AM BILINGUAL TEACHER AIDE Specimen Type->Urine Libra Farr INDUSTRIAL ECONOMIST-LEAN CONSULTANT LAB - [place] ROBIOLOGY ORDERABLES [facility] ([facility]) * (ABNORMAL) CBC W AUTO DIFFERENTIAL (07/18/2016 9:38 AM BILINGUAL TEACHER AIDE) Only the most recent of3 resultswithin the time period is included. WBC 6.8 3.5 - 10.5 10 3/uL [facility] RBC 5.39(H) 3.90 - 5.00 10 6/uL [facility] Hemoglobin 16.2(H) 12.0 - 15.5 g/dL [facility] Hematocrit 46.9(H) 35.0 - 45.0 % [facility] MCV 87.0 81.0 - 97.0 fL [facility] MCH 30.1 28.0 - 34.0 pg [facility] MCHC 34.5 32.0 - 36.0 g/dL [facility] Platelet Count 294 150 - 400 10 3/uL [facility] RDW-SD 38.9 36.0 - 50.0 fL [facility] RDW-CV 12.3 11.2 - 14.8 % [facility] MPV 9.7 9.3 - 12.8 fL [facility] nRBC Absolute 0.00 0 10 3/uL [facility] nRBC Auto 0.0 0 /100 WBC [facility] Neutrophils % 56.9 35.0 - 70.0 % [facility] Lymphocytes % 33.3 19.7 - 55.1 % [facility] Monocytes % 9.3 3.0 - 15.0 % [facility] Eosinophils % 0.1 0.0 - 6.0 % [facility] Basophil % 0.4 0.0 - 1.5 % [facility] Neutrophils Absolute 3.9 1.6 - 7.0 10 3/uL [facility] Lymphocyte Absolute 2.3 0.8 - 2.9 10 3/uL [facility] Monocytes Absolute 0.63 0.14 - 0.66 10 3/uL [facility] Eosinophils Absolute 0.01 0.00 - 0.22 10 3/uL [facility] Basophils Absolute 0.03 0.00 - 0.06 10 3/uL [facility] Immature Granulocytes % 0.3 0.0 - 1.0 % [facility] Blood specimen (specimen) BLOOD SPECIMEN / Unknown 07/18/2016 9:38 AM BILINGUAL TEACHER AIDE 07/18/2016 9:47 AM BILINGUAL TEACHER AIDE Preeti Rudolph MD LAB - HEMATOLOGY ORD ERABLES [address] [phone] * CT ABDOMEN W CONTRAST (07/18/2016 9:22 AM BILINGUAL TEACHER AIDE) Anatomical Region Laterality Modality Abdomen Other Impressions 07/18/2016 2:59 PM BILINGUAL TEACHER AIDE IMPRESSION: 1. No acute abnormality in the imaged abdomen to explain the patient's symptoms. Dictated by Ravi Armendariz DO (vice president of software engineering). This report was approved by Ravi Armendariz on 07/18/2016 10:31 AM . I, Dr. YOVANA STEVENS M.D. have personally reviewed and interpreted this examination/study. This report was electronically signed by YOVANA STEVENS M.D. on 07/18/2016 2:59 PM . Narrative 07/18/2016 2:59 PM BILINGUAL TEACHER AIDE EXAMINATION: Computed tomography (CT) of the abdomen with contrast HISTORY: 60-year-old female with flank and abdominal pain. TECHNIQUE: CT of the abdomen was performed following the uneventful administration of 100 mL of Omnipaque 350 intravenous contrast according to standard protocol. COMPARISON: No prior study is available for comparison. FINDINGS: The visible lung bases are clear. The heart size is normal without pericardial effusion. The liver enhances homogenously. The gallbladder is normal without evidence of wall thickening, pericholecystic fluid, or gallstones. The intrahepatic and extrahepatic bile ducts are nondilated. The spleen enhances homogenously without focal lesion. The pancreas is atrophic. The adrenal glands are normal. The kidneys enhance symmetrically. There is no evidence of renal calculus or hydronephrosis. The aorta is normal in course and caliber. The distal esophagus and stomach appear normal. The imaged portions of the small bowel and large bowel are normal in caliber without evidence of wall thickening or obstruction. No free air or free fluid is identified within the abdomen. There is no abdominal lymphadenopathy. Bone windows demonstrate no suspicious lytic or blastic lesions. The visible osseous structures are intact. Procedure Note Yovana Stevens MD - 11/04/2017 EXAMINATION: Computed tomography (CT) of the abdomen with contrast HISTORY: 60-year-old female with flank and abdominal pain. TECHNIQUE: CT of the abdomen was performed following the uneventfuladministration of 100 mL of Omnipaque 350 intravenous contrast accordingto standard protocol. COMPARISON: No prior study is available for comparison. FINDINGS: The visible lung bases are clear. The heart size is normal withoutpericardial effusion. The liver enhances homogenously. The gallbladder is normal withoutevidence of wall thickening, pericholecystic fluid, or gallstones. Theintrahepatic and extrahepatic bile ducts are nondilated. The spleenenhances homogenously without focal lesion. The pancreas is atrophic. The adrenal glands are normal. The kidneys enhancesymmetrically. There is no evidence of renal calculus or hydronephrosis.The aorta is normal in course and caliber. The distal esophagus and stomach appear normal. The imaged portions of thesmall bowel and large bowel are normal in caliber without evidence of wallthickening or obstruction. No free air or free fluid is identified withinthe abdomen. There is no abdominal lymphadenopathy. Bone windows demonstrate no suspicious lytic or blastic lesions. Thevisible osseous structures are intact. IMPRESSION IMPRESSION: 1. No acute abnormality in the imaged abdomen to explain the patient'ssymptoms. Dictated by Ravi Armendariz DO (vice president of software engineering). This report was approved by Ravi Armendariz on 07/18/2016 10:31 AM . I, Dr. YOVANA STEVENS M.D. have personally reviewed and interpreted thisexamination/study. This report was electronically signed by YOVANA STEVENS M.D. on07/18/2016 2:59 PM . Preeti Rudolph MD CT ORDERABLES * CREATININE BLOOD - POCT (IP) [facility] (07/18/2016) Creatinine POCT 0.98 0.3 - 1.3 mg/dL [facility] eGFR POCT 60 60 ml/min [facility] 07/18/2016 Preeti Rudolph MD LAB - POINT OF CARE ORDERABLES [facility] * APHERESIS/TRANSFUSION ORDER (05/21/2016 10:51 PM CDT) Narrative 05/21/2016 10:51 PM CDT Ordered by an unspecified provider. Scanned Document NURSING - VITAL SIGN S AND ASSESSMENT * GLUCOSE - POINT OF CARE (05/20/2016 12:03 PM CDT) Only the most recent of7 resultswithin the time period is included. Glucose WB/POC 96 70 - 106 mg/dL 05/20/2016 4:46 PM CDT [facility] Blood BLOOD SPECIMEN / Unknown 05/20/2016 12:03 PM CDT 05/20/2016 4:46 PM CDT Preeti Rudolph MD LAB - POINT OF CARE ORDERABLES Performing Organization Address [facility] Co de Phone Number [facility] [address] [place] [address] * BLOOD TYPE VERIFICATION (05/12/2016 9:45 AM CDT) ABO A 05/12/2016 10:19 AM CDT [facility] Rh Type Positive 05/12/2016 10:19 AM CDT [facility] Miscellaneous samples (specimen) BLOOD SPECIMEN / Unknown Venipuncture / Unknown 05/12/2016 9:45 AM CDT 05/12/2016 9:45 AM CDT Preeti Rudolph MD LAB - BLOOD BANK ORD ERABLES Performing Organization Address City/[facility] Co de Phone Number [facility] [address] * TYPE + SCREEN PANEL (05/12/2016 8:51 AM CDT) ABO A 05/12/2016 10:49 AM CDT [facility] Rh Type Positive 05/12/2016 10:49 AM CDT [facility] Comment:History check perfor med. No retype required. Antibody Screen Negative 05/12/2016 10:49 AM CDT [facility] Miscellaneous samples (specimen) BLOOD SPECIMEN / Unknown Venipuncture / Unknown 05/12/2016 8:51 AM CDT 05/12/2016 9:31 AM CDT Preeti Rudolph MD LAB - BLOOD BANK ORD ERABLES Performing Organization Address City/[facility]/ZIP Co de Phone Number [facility] [address] * URINALYSIS AUTO - POINT OF CARE (AMB) [facility] (04/26/2016 12:58 PM CDT) Only the most recent of2 resultswithin the time period is included. Glucose UA neg [facility] Bilirubin UA POCT neg [facility] Ketones UA POCT neg [facility] Specific [place] UA 1.020 [facility] Blood Urine POCT neg [facility] pH UA 6.0 [facility] Protein UA neg [facility] Urobilinogen UA 3.5 [facility] Nitrite UA + pos [facility] WBC UA neg [facility] Urine specimen (specimen) 04/26/2016 12:58 PM CDT Preeti Rudolph MD LAB - POINT OF CARE ORDERABLES [facility] Care Teams Soldering Machine Setter Relationship Specialty Start Date End Date Tarun Lerma MD [address] [place] [address] PCP - General 10/20/22
--- OUTSIDE RECORDS SUMMARY | 2024-10-09 00:38 | XMS_ITS | Clinical Summary ---
Author Organization [facility] Address [address] [place] [address] Care Team Providers Care Emergency Man Name Role Phone Tarun Lerma MD Primary Care Provider [phone] Source Comments [facility],non-owned Affiliates and Associated Physician Practices is amultiple site organization consisting of ambulatory clinics and hospital sitesin [place], [place], [place] and [place]. This disclosure is being madepursuant to the Care Everywhere program and may not contain all information available regarding this patient. Last updated 18.[facility] [employer] Allergies Active Allergy Reactions Criticality Noted Date Comments Cephalexin Diarrhea Low 12/24/2018 Ciprofloxacin 05/19/2016 Fever/ hives Extract Of Poison Alivia Itching High 12/24/2018 Penicillins Rash Medium 05/12/2016 High fever Medications * Be aware that medications may not be up to date on this document. Alwaysverify current medications with the patient. Medication Sig Dispensed Refills Start Date End Date Status atenolol (TENORMIN) 100 MG tablet Take 1 Tab by mouth 03/21/2016 Active vitamin D3 (CHOLECACIFEROL) 5000 UNITS Take 1 Tab by mouth once daily Active DHEA 50 MG TABS Take 2 Tabs by mouth Active diazePAM (VALIUM) 10 MG tablet Take 1 Tab by mouth 01/30/2016 Active glipiZIDE CR 24hr (GLIPIZIDE XL) 2.5 MG tablet Take 1 Tab by mouth 01/06/2016 Active meloxicam (MOBIC) 15 MG tablet Take 1 Tab by mouth 03/21/2016 Active tapentadol (NUCYNTA) 50 MG tablet Take 1 Tab by mouth every 8 hours 02/25/2016 Active omeprazole (PRILOSEC) 40 MG capsule Take 40 mg by mouth at bedtime Active traZODone (DESYREL) 50 MG tablet Take 1 Tab by mouth at bedtime 03/04/2016 Active ibuprofen (MOTRIN) 600 MG tablet Take 1 Tab by mouth every 6 hours as needed for Pain 60 Tab 0 05/20/2016 Active docusate sodium (COLACE) 100 MG capsule Take 1 Cap by mouth 2 times daily 60 Cap 3 05/20/2016 Active Active Problems No known active problems Social [...] PM CDT Pulse 70 07/26/2016 12:59 PM CROP PRODUCTION ADVISOR Temperature 36.8 C (98.2 F) 07/05/2016 2:31 PM CROP PRODUCTION ADVISOR Respiratory Rate 18 05/20/2016 11:59 AM CDT Oxygen Saturation 98% 07/26/2016 12:59 PM CROP PRODUCTION ADVISOR Inhaled Oxygen Concentration - - Weight 90.7 kg (200 lb) 03/07/2023 10:20 AM CDT Height 165.1 cm (5' 5 ) 03/07/2023 10:20 AM CDT Body Mass Index 33.28 03/07/2023 10:20 AM CDT Plan of Treatment Health Maintenance Due Date Last Done Comments BONE DENSITY TESTING 1955 COLOGUARD (AGES 45-75) - COLON CA SCREENING 1953 COLON MONITORING 1953 COLONOSCOPY - COLON CA SCREENING 1953 CT COLONOGRAPHY - COLON CA SCREENING 1953 Colorectal Cancer Screening 1955 FIT - COLON CA SCREENING 1953 FLEX SIG - COLON CA SCREENING 1953 LIPID TESTING 1955 MAMMOGRAM 1953 HEPATITIS C SCREENING 08/15/1971 DTAP/TDAP/TD VACCINES (1 - Tdap) 1972 PNEUMOCOCCAL VACCINE 50+ (1 of 1 - PCV) 2003 ZOSTER VACCINE (1 of 2) 2003 SCREENING FOR DIABETES 03/07/2023 6, 05/20/2016, 05/19/2016, Additional history exists COVID-19 VACCINE ( - season) 2024 INFLUENZA VACCINE (#1) 2024 04/07/2017 DEPRESSION SCREENING 08/07/2024 MEDICARE AWV CALENDAR YEAR 2024 Respiratory Syncytial Virus (RSV) Vaccine Pt: or over 60 yrs (1 - 1-dose 75+ series) 2028 HEPATITIS B VACCINE Aged Out No longe r eligible based on patient's age to complete this topic HIB VACCINE Aged Out No longer eligi ble based on patient's age to complete this topic HPV VACCINE Aged Out No longer eligi ble based on patient's age to complete this topic MENINGOCOCCAL (Group B) VACCINE Aged Out No longer eligible based on patient's age to complete this topic MENINGOCOCCAL VACCINE Aged Out No bruce silke eligible based on patient's age to complete this topic Medical Devices Implanted Type Area Addressograph Operator Device Identifier Shelf Expiration Date Model / Serial / Lot Mesh Srg Upsylon 35.4cm [id number] 2.8sq Implanted:Qty: 1 on 05/19/2016 by Preeti Rudolph MD at [facility] [employer] 02/03/2019 [id number] / / [id number] Procedures Procedure Name Priority Date/Time Associated Diagnosis Comments GLUCOSE - POINT OF CARE Routine 05/20/2016 8:13 AM CDT from Last 3 Months or Most Recently Relevant to Health Maintenance Results * (ABNORMAL) GLUCOSE - POINT OF CARE (05/20/2016 8:13 AM CDT) [facility] Glucose WB/POC 111(H) 70 - 106 mg/dL 05/20/2016 11:45 AM CDT [facility] Blood BLOOD SPECIMEN / Unknown 05/20/2016 8:13 AM CDT 05/20/2016 11:45 AM CDT Preeti Rudolph MD LAB - POINT OF CARE ORDERABLES [facility] [address] [place] [address] from Last 3 Months or Most Recently Relevant to Health Maintenance Advance Directives * Full Code (Latest Code Status on File) Date Activated Date Inactivated Comments 05/19/2016 2:39 PM 05/20/2016 6:04 PM Care Teams Emergency Man Relationship Specialty Start Date End Date Tarun Lerma MD [address] [place] [address] PCP - General 10/20/22
--- OUTSIDE RECORDS SUMMARY | 2024-10-09 00:39 | XMS_ITS | Referral Summary ---
Author Organization [facility] Address [address] [place] [address] Care Team Providers Care Cook Chief Name Role Phone Tarun Lerma MD Primary Care Provider Source Comments [facility],non-owned Affiliates and Associated Physician Practices is amultiple site organization consisting of ambulatory clinics and hospital sitesin [place], [place] and [place]. This disclosure is being madepursuant to the Care Everywhere program and may not contain all information available regarding this patient. Last updated 18.[facility] [employer] Allergies Active Allergy Reactions Criticality Noted Date [...] PM CDT Pulse 70 07/26/2016 12:59 PM PLASTIC DIE MAKER APPRENTICE Temperature 36.8 C (98.2 F) 07/05/2016 2:31 PM PLASTIC DIE MAKER APPRENTICE Respiratory Rate 18 05/20/2016 11:59 AM CDT Oxygen Saturation 98% 07/26/2016 12:59 PM PLASTIC DIE MAKER APPRENTICE Inhaled Oxygen Concentration - - Weight 90.7 kg (200 lb) 03/07/2023 10:20 AM CDT Height 165.1 cm (5' 5 ) 03/07/2023 10:20 AM CDT Body Mass Index 33.28 03/07/2023 10:20 AM CDT Functional Status Functional Status Response Date of Assess ment Is person deaf or have serious hearing difficult y? No 05/19/2016 Is person blind or have serious difficulty seein g? No 05/19/2016 Does person have serious dif ficulty walking/climbing stairs? No 05/19/2016 Does person have difficulty dressing/bathing? No 05/19/2016 Does person have difficulty doing errands alone? No 05/19/2016 Cognitive Status Response Date of Assessm ent Does person have difficulty concentrating/remembering/making decisions? No 05/19/2016 Plan of Treatment Not on file Medical Devices Implanted Type Area Jordan Worker Device Identifier Shelf Expiration Date Model / Serial / Lot Mesh Srg Upsylon 35.4cm [id number] 2.8sq Implanted:Qty: 1 on 05/19/2016 by Preeti Rudolph MD at [facility] [employer] 02/03/2019 [id number] / / [id number] Procedures Procedure Name Priority Date/Time Associated Diagnosis Comments GLUCOSE - POINT OF CARE Routine 05/20/2016 8:13 AM CDT from Last 3 Months or Most Recently Relevant to Health Maintenance Results * (ABNORMAL) GLUCOSE - POINT OF CARE (05/20/2016 8:13 AM CDT) [facility] Glucose WB/POC 111(H) 70 - 106 mg/dL 05/20/2016 11:45 AM CDT [facility] Blood BLOOD SPECIMEN / Unknown 05/20/2016 8:13 AM CDT 05/20/2016 11:45 AM CDT Preeti Rudolph MD LAB - POINT OF CARE ORDERABLES [facility] [address] [place] [id number] from Last 3 Months or Most Recently Relevant to Health Maintenance Advance Directives * Full Code (Latest Code Status on File) Date Activated Date Inactivated Comments 05/19/2016 2:39 PM 05/20/2016 6:04 PM Care Teams Cook Chief Relationship Specialty Start Date End Date Tarun Lerma MD [address] [place] [address] PCP - General 10/20/22
[2024-10-09 09:37] VITALS: BP 146/101; PULSE 75; RESP 18; TEMP 36.2; O2SAT 95
[2024-10-09] MEDS: LACTATED RINGERS 1,000 ML 150 ML IV CONT (09:48)
--- NOTE | 2024-10-09 10:03 | P.PNAN_ITS ---
Anes - Initial Pre Proc Eval Procedure: Operation Date: 10/09/24 10:15 Proposed Procedures p Esophagogastroduodenoscopy&Screen Colon - Kris Min MD Date/Time: 10/09/24 10:03 Surgeon: Kris Min MD Pre Op Diagnosis: Screening,Esophageal obstruction Patient Data Age: 69 Gender: F Height: 1.65 m Weight: 95.2 kg Last Vital Signs Temp 36.2 C L 10/09/24 09:37 Pulse 75 10/09/24 09:37 Resp 18 10/09/24 09:37 BP 146/101 H 10/09/24 09:37 Pulse Ox 95 10/09/24 09:37 O2 Del Method Room Air 10/09/24 09:37 Allergies Allergy/AdvReac Type Severity Reaction Status Date / Time ciprofloxacin Allergy Intermediate HIVES/RASH Verified 10/09/24 09:35 amoxicillin Allergy Unknown Rash Verified 10/09/24 09:35 cephalexin Allergy Unknown Rash Verified 10/09/24 09:35 clavulanic acid Allergy Unknown Rash Verified 10/09/24 09:35 Penicillins Allergy Unknown Rash Verified 10/09/24 09:35 Home Medications ?Medication ?Instructions ?Recorded ?Confirmed ?Type albuterol sulfate 0.63 mg/3 mL 0.63 mg inhalation Q4-6H 08/26/22 10/09/24 History solution for nebulization atenolol 50 mg tablet 100 mg PO DAILY 08/26/22 10/09/24 History ryvscblipr-dmlszrfdlnydb-wwrhuanx 1 tablet PO Q6H PRN Migraine 08/26/22 09/16/24 History 50 mg-325 mg-40 mg tablet Headache calcium phosphate-vitamin D3 600 1 tablet PO DAILY 08/26/22 10/09/24 History mg-125 unit tablet multivitamin 1 tablet PO DAILY 08/26/22 10/09/24 History multivitamin with folic acid 400 1 tablet PO DAILY 08/26/22 10/09/24 History mcg tablet (Tab-A-Parker) omeprazole 40 mg capsule,delayed 40 mg PO DAILY 08/26/22 10/09/24 History release pioglitazone 30 mg tablet 30 mg PO DAILY 08/26/22 10/09/24 History tramadol 50 mg tablet 50 mg PO Q6H PRN Migraine Headache 08/26/22 10/09/24 History trazodone 50 mg tablet 50 mg PO QHS 08/26/22 10/09/24 History venlafaxine 150 mg 150 mg PO QAM 08/26/22 10/09/24 History capsule,extended release 24 hr diclofenac sodium 75 mg 75 mg PO BID 06/05/23 10/09/24 History tablet,delayed release losartan 50 mg tablet 50 mg PO DIRECTED 06/05/23 10/09/24 History sulfasalazine 500 mg 500 mg PO DIRECTED 06/05/23 10/09/24 History tablet,delayed release Patient hx anesthesia problems: none Family hx anesthesia problems: none Results Review: All pre-operative results and documents have been reviewed as part of the pre- operative evaluation. [facility] Past Medical History Medical History COPD (chronic obstructive pulmonary disease) HTN (hypertension) GERD (gastroesophageal reflux disease) Eroded bladder suspension mesh Diabetes mellitus Surgical History Surgical History History of total abdominal hysterectomy H/O tubal ligation History of orthopedic surgery H/O ovarian cystectomy H/O: hysterectomy Family History Family History Mother Hypertension Depression Diabetes mellitus Osteoporosis Social History Social History Smoking status: Never smoker Second hand tobacco smoke exposure: No Alcohol intake: never Substance use: current Substance use type: marijuana Other substance usage details: patient smokes marijuana daily Living arrangements: with family Gender identity (if verbalized by the patient): Female Spiritual care concerns: No Anes - Eval Final PreProcedure Day of Procedure 10/09/24 10:03 Patient weight: obese Heart: regular rate and rhythm Lungs: clear to auscultation Airway: Mallampati scale class II Neurological: alert and oriented Last oral intake: >/= 8 hours Emergent: no Anesthetic plan: proceed Anesthesia type and monitoring: general GIVS and standard monitoring Results Review: All pre-operative results and documents have been reviewed as part of the pre- operative evaluation. Informed Consent: The patient's anesthetic plan and its attendant risks and benefits were discussed with the patient/family/POA. Questions were solicited and answers provided to the satisfaction of the patient/family/POA.
[2024-10-09 10:25] LABS: Glucose Point of Care 161 mg/dl (65-105)
--- NOTE | 2024-10-09 10:30 | PM.IMHP ---
H&P: HPI History of Present Illness Date/Time: 10/09/24 10:30 Chief Complaint: Dysphagia- history of colon polyps Narrative: the patient has a longstanding history of GERD, and a lower esophageal ring, dilated many times, the last 1 in 2022. In addition she has a history of colonic polyps in the past and is due for her surveillance colonoscopy. Review of Systems Review of Systems: All systems reviewed & are unremarkable except as noted in HPI and below PMFSH Past Medical History Medical History COPD (chronic obstructive pulmonary disease) HTN (hypertension) GERD (gastroesophageal reflux disease) Eroded bladder suspension mesh Diabetes mellitus Surgical History Surgical History History of total abdominal hysterectomy H/O tubal ligation History of orthopedic surgery H/O ovarian cystectomy H/O: hysterectomy Family History Family History Mother Hypertension Depression Diabetes mellitus Osteoporosis Social History Social History Smoking status: Never smoker Second hand tobacco smoke exposure: No Alcohol intake: never Substance use: current Substance use type: marijuana Other substance usage details: patient smokes marijuana daily Living arrangements: with family Gender identity (if verbalized by the patient): Female Spiritual care concerns: No Meds Home Medications and Allergies Home Medications ?Medication ?Instructions ?Recorded ?Confirmed ?Type albuterol sulfate 0.63 mg/3 mL 0.63 mg inhalation Q4-6H 08/26/22 10/09/24 History solution for nebulization atenolol 50 mg tablet 100 mg PO DAILY 08/26/22 10/09/24 History scwyqitfqb-prthkfnhbpcpi-lnzpszus 1 tablet PO Q6H PRN Migraine 08/26/22 09/16/24 History 50 mg-325 mg-40 mg tablet Headache calcium phosphate-vitamin D3 600 1 tablet PO DAILY 08/26/22 10/09/24 History mg-125 unit tablet multivitamin 1 tablet PO DAILY 08/26/22 10/09/24 History multivitamin with folic acid 400 1 tablet PO DAILY 08/26/22 10/09/24 History mcg tablet (Tab-A-Parker) omeprazole 40 mg capsule,delayed 40 mg PO DAILY 08/26/22 10/09/24 History release pioglitazone 30 mg tablet 30 mg PO DAILY 08/26/22 10/09/24 History tramadol 50 mg tablet 50 mg PO Q6H PRN Migraine Headache 08/26/22 10/09/24 History trazodone 50 mg tablet 50 mg PO QHS 08/26/22 10/09/24 History venlafaxine 150 mg 150 mg PO QAM 08/26/22 10/09/24 History capsule,extended release 24 hr diclofenac sodium 75 mg 75 mg PO BID 06/05/23 10/09/24 History tablet,delayed release losartan 50 mg tablet 50 mg PO DIRECTED 06/05/23 10/09/24 History sulfasalazine 500 mg 500 mg PO DIRECTED 06/05/23 10/09/24 History tablet,delayed release Allergies Allergy/AdvReac Type Severity Reaction Status Date / Time ciprofloxacin Allergy Intermediate HIVES/RASH Verified 10/09/24 09:35 amoxicillin Allergy Unknown Rash Verified 10/09/24 09:35 cephalexin Allergy Unknown Rash Verified 10/09/24 09:35 clavulanic acid Allergy Unknown Rash Verified 10/09/24 09:35 Penicillins Allergy Unknown Rash Verified 10/09/24 09:35 Vital Signs Vital Signs - 24 hr 10/09/24 09:37 Temperature 97.2 F L Pulse Rate 75 Respiratory Rate 18 Blood Pressure 146/101 H Pulse Oximetry 95 Oxygen Delivery Room Air Exam Const: General: cooperative and healthy appearing Resp: Effort & Inspection: normal respiratory effort and able to speak in complete sentences Auscultation: clear to auscultation bilaterally Cardio: Rate: regular rate Rhythm: regular rhythm GI: Inspection: normal to inspection GI Palp: No No hepatosplenomegaly present Auscultation: normal bowel sounds Rectal Exam: deferred Skin: General skin exam: normal color Psych: Appearance: grossly normal Mental Status: mental status grossly normal Assessment and Plan Assessment and plan (1) Dysphagia: Code(s): R13.10 - Dysphagia, unspecified Status: Acute Assessment and Plan: The patient is deemed a good candidate for the procedures. Consent signed. Will proceed. (2) History of colonic polyps: Code(s): Z86.0100 - Personal history of colon polyps, unspecified Status: Acute
[2024-10-09] MEDS: BENZOCAINE (*SP) 60 ML SPRAY CAN (HURRICAINE) 1 SPRAY MUCOUS MEM (10:40)
--- NOTE | 2024-10-09 10:43 | SUR.OPER ---
EGD: [id number] COLON:[id number]
[2024-10-09 11:27] VITALS: BP 100/47; PULSE 62; RESP 20; O2SAT 94
[2024-10-09 11:37] VITALS: BP 107/52; PULSE 62; RESP 19; O2SAT 92
[2024-10-09 11:47] VITALS: BP 114/61; PULSE 64; RESP 19; O2SAT 97
[2024-10-09 11:57] VITALS: BP 132/65; PULSE 61; RESP 20; O2SAT 95
--- NOTE | 2024-10-09 12:57 | SUR.PHASEII ---
1130 Pt SpO2 88-92% on RA. Denies SOB. Occasional cough with sputum. Pt placed on 2L NC. Lungs clear and diminished. Dr. Wilson made aware. Ok to d/c once pt is on RA and SpO2 >90%. Pt and family informed that pt was suctioned during the procedure r/t secretions and the risk for aspiration pneumonia. Reviewed signs and symptoms of aspiration pneumonia and when to seek medical care. Pt and family stated understanding.
== END 2024-10-09 12:21 | disposition home or self-care (01) ==
PROVIDERS: PCP Internal Medicine; Referring Provider Internal Medicine; Visit Provider Internal Medicine Gastroenterology
PROC: 0DJ08ZZ Inspection of Upper Intestinal Tract, Via Natural or Artificial Opening Endoscopic (ICD-10-PCS; CPT 45378; principal; 2024-10-09 10:15)
DX: Z12.11 Encounter for screening for malignant neoplasm of colon (principal); K64.2 Third degree hemorrhoids; Z86.0100 Personal history of colon polyps, unspecified; K22.2 Esophageal obstruction; K44.9 Diaphragmatic hernia without obstruction or gangrene; K21.9 Gastro-esophageal reflux disease without esophagitis; F12.90 Cannabis use, unspecified, uncomplicated; E11.9 Type 2 diabetes mellitus without complications; E66.9 Obesity, unspecified; Z68.34 Body mass index [BMI] 34.0-34.9, adult
CPT/HCPCS: 43249; G0105; 82948; C1726; J2003; J2704; J7120

== ENCOUNTER 2025-02-10 13:56 | Outpatient (CLI) | payer MEDICARE, BC, SELFPAY ==
--- NOTE | ~2025-02-10 | DEXA_ITS ---
Bone Density Report Name: NURY GREGORIO Age: 69 Sex: Female Ethnicity: White Date of : 1955 Indication: postmenopausal; screening for osteoporosis; parental hip fracture; hysterectomy; rheumatoid arthritis; Referring Provider: MADISON, EDMUNDO Vila Study: Bone densitometry was performed. Exam Date: February 10, 2025 Accession number: [id number] Bone Density: Region BMD T-score Z-score Classification AP Spine(L1-L4) 0.936 -1.0 1.2 Normal Femoral Neck (Left) 0.670 -1.6 0.3 Osteopenia Total Hip (Left) 0.746 -1.6 0.0 Osteopenia Femoral Neck (Right) 0.677 -1.6 0.3 Osteopenia Total Hip (Right) 0.829 -0.9 0.7 Normal Total Hip Mean 0.788 -1.3 0.4 Osteopenia World Health Organization criteria for BMD impression classify patients as: Normal (T-score at or above -1.0), Osteopenia (T-score between -1.0 and -2.5), or Osteoporosis (T-score at or below -2.5). 10-year Fracture Risk: FRAX not reported because: Treated for osteoporosis Clinical Information Provided by Patient: Parent has had a hip fracture Has rheumatoid arthritis Is being treated for osteoporosis Has used the following medications: Vitamin D Has the following medical conditions: Hysterectomy Patient maximum height was 65 Menopause Age: 20 No regular weight bearing exercise Does not regularly consume dairy products Drinks caffeinated beverages Onset of menses at age 10 Number of children 3 Impression: The patient has low bone mass, based on the Left Total Hip T-score. The patient has risk factors, including: parental hip fracture. Discussion: It is important to ask patients whether they are taking their medications and to encourage continued and appropriate compliance with their osteoporosis therapies to reduce fracture risk. It is also important to review their risk factors and encourage appropriate calcium and vitamin D intakes, exercise, fall prevention and other lifestyle measures. Follow-Up: Consider a repeat BMD and Vertebral Fracture Assessment (VFA) exam in 2 years or sooner if medically necessary, to reassess this patient's status. Reported by: TIA on 02/10/2025 2:44:00 PM. Reviewed, dictated and finalized at location A.
--- OUTSIDE RECORDS SUMMARY | 2025-02-10 14:00 | XMS_ITS | Data Portability ---
Author Organization [facility] CATHYKady Address [address] [place] [address] Care Team Providers Care Claim Review Medical Director Name Role Phone TARUN ANN Primary Care Provider [phone] DERECK MORENO [employer] Roboticist Assessment No assessment recorded. Plan of Treatment Reminders Order Date Submit Date Provider Last Modified By Organization Details Last Modified Time Details Appointments None recorded. Lab HbA1c (hemoglobin A1c), blood 2022 023 [facility] In-Office Order, Internal Use Only DO Not Attach Compendium DO Not Attach Compendium, Do Not Delete/merge, [id number] 16:05:24 Referral None recorded. Procedures None recorded. Surgeries None recorded. Imaging US, abdomen - Please call patient for apppointduncan barry, thanks! 2023 024 [facility] ([facility] Sched[facility]), [address] [place], [address], 4 14:23:11 Medication Orders loratadine 10 mg tablet [address] [facility], [address] [place], [address], 3 12:49:30 montelukast 10 mg tablet [address] [facility], [address] [place], [address], 12:49:29 pioglitazon e 30 mg tablet [address] [facility] [address], [address] [place] [address], [address], 17:39:16 atenolol 100 mg tablet [address] [facility] [address], [address] [place] [address], [address], 14:41:34 Patient TargetsNo targets recorded. Patient Instructions Encounter Date Encounter Id Patient Instructions Last Modified By Organization Details Last Modified Time 11/08/2022 [id number] learning about h igh blood pressure [facility] Not available 11/08/2022 14:41:26 chronic obstruct jose pulmonary disease (COPD): care instructions [facility] Not available 11/08/2022 14:41:26 learning about c opd and how to prevent lung infections sieh Not available 11/08/2022 14:41:25 high cholesterol : care instructions si Not available 11/08/2022 14:41:25 12/12/2022 [id number] gastroesophageal reflux disease (GERD): care instructions si Not available 12/12/2022 16:10:35 learning about h igh blood pressure sieh Not available 12/12/2022 16:10:35 Rheumatoid Arthr itis (RA): Care Instructions si Not available 12/12/2022 16:10:35 06/23/2023 [id number] A healthy lifest yle: care instructions si Not available 06/23/2023 12:49:23 knee arthritis: care instructions si Not available 06/23/2023 12:49:23 allergies: care instructions si Not available 06/23/2023 12:49:23 managing your allergies: care instructions si Not available 06/23/2023 12:49:23 Reason for Referral None Reported. Results Created Date Observation Date Name Description Value Unit Range Abnormal Flag Note LastModifiedBy Organization Detail LastModifiedTime 12/13/19 23 12/12/2022 HbA1c (hemo globi n A1c), blood HbA1c 6.5% Not Available In-Office Order Internal Use Only DO Not Attach Compendium DO Not Attach Compendium, Do Not Delete/merge, [id number] 12/12/2022 15:34:29 10/18/19 23 10/17/2022 XR, chest , 2 view No observ ation record ed. [facility] [address] [place], [address], 10/24/2022 13:53:42 09/26/19 24 09/26/2023 US, abdom en No observ ation record ed. [facility] [address] [place], [address], 09/29/2023 14:08:52 Result Notes None recorded. Problems Name Problem SNOMED Code Status Onset Date Resolution Date Notes Provider Name and Address Organization Details Recorded Time Migraine 58074382 Active 2018 Not Available [facility] 3 21:00:26 Vaginitis 60015912 Active Not Available [facility] 3 21:00:26 Diabetes mellitus 15077424 Active Not Available [facility] 3 21:00:26 Hyperlipidemi a 16182901 Active Not Available [facility] 3 21:00:26 Essential hypertension 60845908 Active Not Available [facility] 3 21:00:26 Osteoarthriti s 877805022 Active Not Available [facility] 3 21:00:26 Gastroesophag eal reflux disease 036446020 Active Not Available [facility] 3 21:00:26 Insomnia 628398178 Active Not Available [facility] 3 21:00:26 Candidiasis 67358238 Active Not Available [facility] 3 21:00:26 Menopausal syndrome 480048571 Active Not Available [facility] 3 21:00:26 Atrophic vaginitis 26552448 Active Not Available [facility] 3 21:00:26 Bacterial vaginosis 620856962 Active Not Available [facility] 3 21:00:26 Lumbar spondylosis 866700845 Active Not Available [facility] 3 21:00:26 Chronic sciatica 947740765 Active Not Available [facility] 3 21:00:26 Recurrent urinary tract infection 869812164 Active Not Available [facility] 3 21:00:26 Chronic obstructive pulmonary disease 61764561 Active Not Available [facility] 3 21:00:26 Osteoarthriti s of knee 924478583 Active Not Available [facility] 3 21:00:26 Diabetic peripheral neuropathy 172105990 Active Not Available [facility] 3 21:00:26 Urinary tract infectious disease 16038199 Active Not Available [facility] 3 21:00:26 Cystocele 361240105 Active Not Available [facility] 3 21:00:26 Body mass index 25-29 - overweight 544067201 Active Not Available [facility] 3 21:00:26 Breast lump 21492856 Active Not Available [facility] 3 21:00:26 Acute urinary tract infection 894825061 Active Not Available [facility] 3 21:00:26 Menopausal flushing 425675665 Active Not Available [facility] 3 21:00:26 Vaginal discharge 323170321 Active Not Available [facility] 3 21:00:26 Anogenital herpesviral infection 158125010 Active Not Available [facility] 3 21:00:26 Notes:Some problems listed i n Documents: #[id number], #[id number] could not be added to this patient's chart. Please review these documents and add these problems to the patient's chart manually as needed. Problem Notes None recorded. Procedures Surgical History Date Name Laterality Status Provider Name and Address Organization Details Recorded Time 09/07/19 15 Orthopedic Surgery completed ARCADIO Dumas [facility] 01/05/2015 14:57:34 08/07/19 14 Most Recent Mammogram completed ARACDIO Dumas SIJess 01/05/2015 14:57:34 01/29/20 08 Date of Last Pap Smear completed ARCADIO Dumas SI 01/05/2015 14:57:34 08/07/18 76 Tubal Ligation completed Vivian Sánchez MA [place] - [place] 02/16/2016 11:14:58 08/07/18 76 Total Abdominal Hysterectomy completed Vivian SánchezARCADIO AL - [place] 01/05/2015 14:57:34 Other completed Nannette VidesARCADIO AL - SI 10/11/2016 16:46:47 Hysterectomy completed Vivian Sánchez ARCADIO [place] - [place] 01/05/2015 14:57:34 Ovarian Cystectomy completed Vivian SánchezARCADIO AL - SI 01/05/2015 14:57:34 Imaging Results None recorded. Procedure Notes None recorded. Medical Equipment None Reported. Allergies Allergen ID Allergen Name Allergen Category Reaction Reaction Severity Criticality Documentation Date Start Date Code Code System Note Provider Name and Address Organization Details Recorded Time 50100 Product containin g penicilli n (product) medicatio n hives severe Not available 08/04/2014 04825 8001 SNOMED ARCADIO De Luna, [facility] 4 13:07:58 44533 Cipro medicatio n hives severe Not available 02/16/2016 23774 3 RxNorm Alesia ARCADIO Bedolla, [facility] 6 12:27:03 70135 poison oak extract environme nt itching severe Not available 02/16/2016 04702 UNK hivsabine Dumas ARCADIO Bedolla, [facility] 6 12:28:31 68783 poison linda extract environme nt itching severe Not available 02/16/2016 54259 6 RxNorm moni MonteroARCADIO Carson, [facility] 6 12:28:31 90467 Toxicoden dron vernix leafy twig extract Not available itching severe Not available 02/16/2016 05221 61 RxNorm moni MonteroARCADIO Carson, [facility] 6 12:28:31 Medications Name Sig Start Date Stop Date [...] this office, 4 boxes of 21 pills,LO [id number] . EXP.12/07, with package insert. Not Available [...] in Arterial blood by Pulse oximetry Systolic And Diastolic Provider Name and Address Organization Details Last Updated DateTime 4 165.1 cm 33.3 kg/m2 69086.4 7 g 71 /min 96 % 96 % 118/76 mm[Hg] Tiffany Stewart MA [facility] 4 12:26:04 Date Recorded Body height Body mass index (BMI) Body weight Systolic And Diastolic Provider Name and Address Organization Details Last Updated DateTime 11/08/2022 165.1 cm 32.6 kg/m2 35189.1 g 142/70 mm[Hg] Fabi Nguyen MA [facility] 11/08/2022 14:11:32 Date Recorded Body height Body mass index (BMI) Body weight Oxygen saturation Oxygen saturation in Arterial blood by Pulse oximetry Heart rate Systolic And Diastolic Provider Name and Address Organization Details Last Updated DateTime 3 165.1 cm 32.8 kg/m2 52376.1 3 g 97 % 97 % 74 /min 130/68 mm[Hg] Viviane Orantes MA [facility] 3 15:30:16 Date Recorded Body height Body mass index (BMI) Body weight Oxygen saturation Oxygen saturation in Arterial blood by Pulse oximetry Heart rate Systolic And Diastolic Provider Name and Address Organization Details Last Updated DateTime 3 165.1 cm 33.3 kg/m2 51288.9 1 g 93 % 93 % 75 /min 134/76 mm[Hg] Viviane Orantes [facility] 3 17:04:15 Date Recorded Body height Body mass index (BMI) Body weight Heart rate Oxygen saturation Oxygen saturation in Arterial blood by Pulse oximetry Systolic And Diastolic Provider Name and Address Organization Details Last Updated DateTime 3 165.1 cm 33.8 kg/m2 65389.2 5 g 87 /min 98 % 98 % 142/80 mm[Hg] Tiffany Stewart MA [facility] 3 12:16:44 Social History Question Answer Notes LastModified by Organizat ion Details LastModified Time Tobacco Smoking Status Never Smoker ARCADIO Wise, [facility] 10/27/2014 10:33:11 Do You Have An Advance Directive? No Information not available 02/16/2016 Is Blood Transfusion Acceptable In An Emergency? Yes Information not available 02/16/2016 What Is Your Level Of Caffeine Consumption? Moderate Information not available 02/16/2016 How Much Tobacco Do You Chew? None Information not available 02/16/2016 What Type Of Diet Are You Following? VEGETARIAN Information not available 02/16/2016 Education 2 Year College Informatio n not available 02/16/2016 Live Alone Or With Others? With Others [...] Sexually Active? Yes Information not available 02/16/2016 How Much Tobacco Do You Smoke? No Information not available 03/02/2016 General Stress Level Low Information not available 02/16/2016 Do You Use Sunscreen Routinely? No Information not available 02/16/2016 On What Date Was Tobacco Cessation Counseling Provided? 08/29/2023 Information not available 08/29/2023 How Many Years Have You Smoked Tobacco? 0 Information not available 03/02/2016 Sex: Unknown Functional Status Question Answer Note LastModified by Organizat ion Details LastModified Time What is your level of alcohol consumption? None Information not available 02/16/2016 Do you or have you ever used smokeless tobacco? Never used smokeless tobacco Information not available 08/20/2019 Are you currently employed? Yes Information not available 02/16/2016 What is your occupation? Retired Information not available 09/27/2018 Do you or have you ever used e-cigarettes or vape? Never used electronic cigarettes Information not available 08/20/2019 What is your exercise level? Moderate Information [...] disorder svuyyuru Not available 2015 14:01:21 Father Harmful pattern of use of alcohol svuyyuru Not available 2015 14:01:21 Father Asthma [...] available 2015 14:01:21 Medical History Condition Response Other Y High Blood Pressure Y Breast Cancer N Lung Disease N Depression Y Blood Clots N Breast Problem N Anesthesia Complications Y Headaches/Migraines N Anxiety Disorder N Muscle, Joint, or Bone Problems Y Arthritis Y Polyps N Infertility N Acid Reflux (GERD) Y Cancer N Stroke N Endometriosis N High Cholesterol N Liver Disease N Fibromyalgia N Kidney Disease N Heart Problems N Thyroid Problems N Kidney or Bladder Problems Y GI Problems Y Acne N Eating Disorder N Anemia N Diabetes Y Ovarian Cancer N Blood Transfusions Y Seizures/Epilepsy N Abuse/Domestic Violence N Asthma N Hepatitis N Heart Disease N Pre-Eclampsia Y Hypertension Y Osteoporosis Y Gynecological History Statement/Question Response Abnormal Pap N [...] mcg/0.3 mL dose 1 completed Not Available [facility] 02/13/2023 21:00:27 COVID-19, mRNA, LNP-S, PF, 30 mcg/0.3 mL dose 1 completed Not Available [facility] 02/13/2023 21:00:27 zoster recombinant 0 completed Not Available [facility] 02/13/2023 21:00:27 Influenza, high-dose, quadrivalent, PF 0 completed Not Available [facility] 02/13/2023 21:00:27 Influenza, adjuvanted, quadrivalent, PF 1 completed Not Available [facility] 02/13/2023 21:00:27 Influenza, adjuvanted, quadrivalent, PF 2 completed Not Available [facility] 02/13/2023 21:00:27 COVID-19, mRNA, LNP-S, PF, 30 mcg/0.3 mL dose 1 completed Not Available [facility] 02/13/2023 21:00:27 COVID-19, mRNA, LNP-S, PF, 30 mcg/0.3 mL dose, jaylon-sucrose 2 completed Not Available [facility] 02/13/2023 21:00:27 COVID-19, mRNA, LNP-S, bivalent, PF, 30 mcg/0.3 mL dose 2 completed Not Available [facility] 02/13/2023 21:00:27 pneumococcal polysaccharide PPV23 2 completed Not Available [facility] 02/13/2023 21:00:27 Tdap 5 completed Not Available [facility] 02/13/2023 21:00:27 Pneumococcal conjugate PCV 13 5 completed Not Available [facility] 02/13/2023 21:00:27 zoster live 5 completed Not Available [facility] 02/13/2023 21:00:27 Influenza, split virus, trivalent, PF 5 completed Not Available [facility] 02/13/2023 21:00:27 Influenza, split virus, quadrivalent, preservative 7 completed Not Available [facility] 08/24/2019 02:33:26 Influenza, split virus, quadrivalent, preservative 7 completed Not Available [facility] 08/24/2019 02:44:13 Influenza, split virus, quadrivalent, preservative 9 completed Not Available [facility] 08/24/2019 02:39:49 Past Encounters Encounter ID Performer Location Encounter Start Date Encounter Closed Date Diagnosis/Indication Diagnosis SNOMED-CT Code Diagnosis ICD10 Code Diagnosis Note [id number] [facility] [address] [place] [address] [phone] 08/04/2014 11:37:59 08/04/2014 13:33:42 Breast lump 88967485 Venereal d isease screening 479347664 Acute urin ramon tract infection 878588011 [id number] MD Dimitris Salazar (Adult Med) [address] [place] [address] [id number] 10/27/2014 10:03:25 10/27/2014 11:15:01 Diabetes mellitus 99204141 Hyperlipidemia 99115659 Essential hypertension 14414604 Osteoarthritis 123528149 Gastroesop hageal reflux disease 871908641 Insomnia 562899432 [id number] MD Dimitris Mao (DIRECTOR OF ENTERTAINMENT) [address] [place] [address] [phone] 01/05/2015 13:48:49 01/05/2015 15:58:05 Menopausal syndrome 529319817 Screening mammography 86304015 Atrophic vaginitis 86733342 Streptococcus carrier 957799346 [id number] MD Dimitris Salazar (Adult Med) [address] [place] [address] [id number] 04/07/2015 10:36:24 04/07/2015 12:27:57 Diabetes mellitus 34122014 Essential hypertension 11468964 Gastroesop hageal reflux disease 210046979 Hyperlipidemia 82422723 Osteoarthritis 722969547 Postmenopausal state 83731036 Lumbar spondylosis 945261756 Chronic sciatica 405222447 [id number] MD Dimitris Salazar (Adult Med) [address] [place] [address] [id number] 05/29/2015 14:02:48 05/29/2015 16:44:17 Diabetes mellitus 15008989 E11.9 Recurrent urinary tract infection 465275514 N39.0 Hyperlipidemia 45667860 E78.5 Chronic sciatica 5954102 01 M54.31 M54.32 [id number] [facility] [address] [place] [address] [id number] 08/04/2015 09:58:32 08/04/2015 11:48:33 Diabetes mellitus 01562562 E11.9 Hyperlipidemia 31146645 E78.5 Gastroesop hageal reflux disease 772483582 K21.9 Essential hypertension 60760067 I10 Chronic sciatica 9317417 01 M54.30 [id number] MD Dimitris Salazar (Adult Med) [address] [place] [address] [id number] 01/06/2016 14:39:32 01/06/2016 16:12:52 Diabetes mellitus 45584185 E11.9 Hyperlipidemia 42190848 E78.5 Gastroesop hageal reflux disease 020138574 K21.9 Essential hypertension 96928023 I10 Chronic sciatica 8787018 01 M54.30 Insomnia 369826737 G47.0 0 [id number] MD Dimitris Salazar (Adult Med) [address] [place] [address] [id number] 01/26/2016 16:58:54 01/26/2016 18:02:34 Diabetes mellitus 17209768 E11.9 Gastroesop hageal reflux disease 912147451 K21.9 Hyperlipidemia 51060957 E78.5 Lumbar spondylosis 00181 0009 M47.896 Chronic ob structive pulmonary disease 07591847 J44.9 Osteoarthr itis of knee 685605694 M17.9 Diabetic p eripheral neuropathy 234782904 E11.40 [id number] [facility] [address] [place] [address] [id number] 02/16/2016 09:58:29 02/16/2016 12:58:22 Urinary tract infectious disease 64922306 N39.0 Cystocele 666805551 N81. 10 Pessary device to be reordered, patient to be notified when device arrives. Body mass index 25-29 - overweight 327576767 Z68.29 Patient encouraged to increase activity level and to decrease weight from baseline. [id number] MD Dimitris Ray (DIRECTOR OF ENTERTAINMENT) [address] [place] [address] [id number] 03/21/2016 10:20:44 03/21/2016 16:14:30 Urinary tract infectious disease 67057446 N39.0 Cystocele 421339232 N81. 10 Venereal d isease screening 352999887 Z11.3 Screening mammography 24 202008 Z12.31 Menopausal flushing 1984 35024 N95.1 Vaginal discharge 393420 006 N89.8 [id number] [facility] ([facility] [address] [place] [address] [id number] 05/16/2016 15:37:06 05/16/2016 17:06:09 Diabetes mellitus 70138303 E11.9 Cystocele 859718539 N81. 10 Chronic sciatica 4702049 01 M54.30 Chronic ob structive pulmonary disease 80023627 J44.9 Diabetic p eripheral neuropathy 207963278 E11.40 Essential hypertension 99184527 I10 Gastroesop hageal reflux disease 356041226 K21.9 Hyperlipidemia 24609541 E78.5 [id number] MD Dimitris Ray (DIRECTOR OF ENTERTAINMENT) [address] [place] [address] [id number] 05/17/2016 11:55:27 05/17/2016 13:48:14 Urinary tract infectious disease 25647678 N39.0 Menopausal flushing 1984 35991 N95.1 Cystocele 430261572 N81. 10 Patient scheduled for laparoscop ic sacral calpopexy in 2 days Anogenital herpesviral infection 175319400 A60.9 [id number] MD Dimitris Ray (DIRECTOR OF ENTERTAINMENT) [address] [place] [address] [id number] 07/07/2016 12:03:57 07/08/2016 13:24:45 Pain in pelvis 75261538 R10.2 Acute urin ramon tract infection 585028807 N39.0 Abdominal distension symptom 450008970 R14.0 Possible gas in intestines . Denies any fever, nausea, vomiting. If symptoms does not improve with linzess will get abdominal x- ray. She say she saw urologist for abdominal distention , who done bladder surgery . She say he ordered CT abdomen and was told that it was normal. Advised nurse Demi to get the records from [facility]. Counseled to go to ER if fever, nausea and voming and increased abdominal pain. She verbalized understand ing. Bacterial vaginosis 4197 28152 N76.0 Chronic id iopathic constipation 88151701 K59.04 [id number] MD Dimitris Ray (DIRECTOR OF ENTERTAINMENT) [address] [place] [address] [id number] 08/04/2016 09:50:44 08/05/2016 15:56:46 Urinary tract infectious disease 82330052 N39.0 Pain in pelvis 66683334 R10.2 SHE SAY HER PELVIC PAIN IMPROVED AFTER TAKING ANTIBIOTIC S. SHE STILL HAVE FLAGYL PILLS. ADVISED TO FINISH THEM Bacterial vaginosis 4197 02814 N76.0 SHE DID NOT FINISH FLAGYL PILLS. ADVISED TO TAKE FLAGYL PILLS [id number] DereckMD Dimitris Thomson (DIRECTOR OF ENTERTAINMENT) [address] [place] [address] [id number] 10/11/2016 15:33:08 10/12/2016 15:30:44 Administration of influenza vaccine 68161995 Z23 Menopausal flushing 1983 55541 N95.1 counseled about it Vaginal dryness 71068786 N89.8 Body mass index 25-29 - overweight 558990106 Z68.29 [id number] MD Dimitris Ray (DIRECTOR OF ENTERTAINMENT) [address] [place] [address] [id number] 11/11/2016 13:58:13 11/15/2016 12:18:46 Menopausal flushing 588161166 N95.1 counseled about it Essential hypertension 69532552 I10 advised to go to to ER. patient refused. advised to f/u with PCP. SHE VERBALIZED UNDERSTAND ING [id number] MD Dimitris Salazar (Adult Med) [address] [place] [address] [id number] 12/21/2016 16:31:50 12/21/2016 18:19:46 Diabetes mellitus 10438732 E11.9 Diabetic diet, exercise and lose weight. Chronic ob structive pulmonary disease 34610716 J44.9 stable. Menopausal syndrome 1237 43936 N95.9 Under the care of her gynecologi st. Gastroesop hageal reflux disease 193369515 K21.9 Osteoarthr itis of knee 855555186 M17.9 Under the care of a orthopedic care. Lumbar spondylosis 15503 0009 M47.896 Under the care of his pain management clinic. Hyperlipidemia 26989387 E78.5 Low saturated fat diet, exercise and lose somw weight. Essential hypertension 43968859 I10 Low salt diet. Screening for malignant neoplasm of colon 053140187 Z12.11 She will contact her GI specialist Dr. Sharron Waller to set up the schedule. Chronic sciatica 9729774 01 M54.30 Under the care of pain management clinic. Pain of [facility] 67714661 M25.511 Under the care of her vaccine specialist . Knee pain 13334171 M25.5 62 Under the care of hr vaccine specialist . Insomnia 155928250 G47.0 0 [id number] MD Dimitris Ray (DIRECTOR OF ENTERTAINMENT) [address] [place] [address] [id number] 02/10/2017 14:36:04 02/10/2017 16:32:30 Venereal disease screening 651308471 Z11.3 Exposure t o sexually transmissible disorder 891337087 Z20.2 conselled about safe sex Menopausal flushing 1983 79162 N95.1 counseled about it. Improved on venlafaxin e. Advised to continue. Vaginal dryness 93312935 N89.8 she say it improved on replens. Advised to continue. [id number] Dereck Moreno MD [facility] (DIRECTOR OF ENTERTAINMENT) [address] [place] [address] [id number] 05/01/2017 10:54:04 05/01/2017 14:08:31 Vaginal dryness 29851813 N89.8 she say it improved on replens. Advised to continue. Gynecologi c examination 15272999 Z01.419 Counseled about WWE and kegel excercises . Refer to hand out Menopausal flushing 1983 72351 N95.1 counseled about it. Improved on venlafaxin e. Since she still have them will increase the dose of venlafaxin e to 75 mg Screening mammography 24 460600 Z12.31 Overweight 571630425 E66 .3 Counseled About weight loss, diet and excercise. refused cut off tender glass consult. Leukocytes in urine 2757 19253 R82.71 [id number] MD [facility] ([facility] [address] [place] [address] [id number] 05/08/2017 11:31:35 05/08/2017 13:06:46 Chronic obstructive pulmonary disease 82216416 J44.9 Stable. Menopausal flushing 1983 41794 N95.1 Under the care of his gynecologi st. Gastroesop hageal reflux disease 234337577 K21.9 Osteoarthr itis of knee 775440235 M17.9 Under the care of a orthopedic care. Lumbar spondylosis 31502 0009 M47.896 Under the care of his pain management clinic. Diabetic p eripheral neuropathy 428856865 E11.40 Got used to it she said Diabetes mellitus 197227 09 E13.620 E11.40 On diabetic diet and on medication s as prescribed . Administra tion of influenza vaccine 39426900 Z23 Patient tolerated. Irritable bowel syndrome with diarrhea 457994681 K58.0 She is going to see her GI specialist in the near future, who is familiar with her case. Sh kishor philip she can not take linzers. Chronic di sease of skin 495597039 L98.9 Dyslipidemia 952236605 E 78.5 Low saturated fat diet. [id number] MD Dimitris Salazar (Adult Med) [address] [place] [address] [phone] 05/18/2017 15:55:54 05/22/2017 11:41:26 Knee pain 59787929 M25.562 Under the care of hr vaccine specialist . lump in the left popliteal fossa, posible Carrion cyst. [id number] Tarun Ann MD [facility] (Adult Med) [address] [place] [address] [phone] 0 06/14/2017 16:09:15 06/15/2017 10:10:34 Diabetes mellitus 53268998 E11.41 hga1c is 5.9% 06-14-2017 , she is informed in office. Has enough medication s. Diabetic p eripheral neuropathy 154904690 E11.40 Got used to it she said, comfortabl e in wearing proper shoes. Synovial c yst of popliteal space 05467351 M71.22 Carrion cyst. getting bigger since last visit. She does not want any pill today., She prefers Dr. Precious Corey JR MD at [facility]. [id number] MD Dimitris Salazar (Adult Med) [address] [place] [address] [phone] 0 10/17/2017 15:45:48 10/17/2017 17:23:46 Chronic obstructive pulmonary disease 09258661 J44.9 Stable. nERVE SMOKED, . on ventolin. Gastroesop hageal reflux disease 538451332 K21.9 Osteoarthr itis of knee 508658696 M17.9 Under the care of a orthopedic care. Lumbar spondylosis 46245 0009 M47.896 Under the care of his pain management clinic. Diabetic p eripheral neuropathy 880629127 E11.40 Got used to it she said, comfortabl e in wearing proper shoes. Type 2 rosalia betes mellitus 49551274 E11.9 dIABETIC DIET, WILL refer FOR THE ANNUAL EYE EX. Diabetes mellitus 199462 09 E11.41 hga1c is 5.9% 06-14-2017 , she is informed in office. Has enough medication s. Essential hypertension 93169902 I10 Low salt diet. 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 Rheumatoid arthritis 698 23053 M06.9 UNDER THE CARE OF YOLANDA SANZ [facility]. [id number] MD Dimitris Salazar (Adult Med) [address] [place] [address] [phone] 0 04/19/2018 15:06:07 04/19/2018 15:50:58 Chronic tension-type headache 885233124 G44.140 [id number] MD Dimitris Mao (DIRECTOR OF ENTERTAINMENT) [address] [place] [address] [phone] 09/27/2018 14:31:49 09/27/2018 17:03:26 Gynecologic examination 31666357 Z01.419 Diabetic p eripheral neuropathy 466692816 E11.40 Rheumatoid arthritis 698 37631 M06.9 Chronic ob structive pulmonary disease 79301351 J44.9 Menopausal syndrome 1237 09639 N95.9 Type 2 rosalia betes mellitus 13141489 E11.9 Screening mammography 24 561288 Z12.31 Exposure t o sexually transmissible disorder 928948701 Z20.2 Urinary tr act infectious disease 39926183 N39.0 Vaginal dryness 60031976 N89.8 [id number] MD Dimitris Mao (DIRECTOR OF ENTERTAINMENT) [address] [place] [address] [phone] 0 10/04/2018 10:20:25 10/04/2018 14:41:55 Recurrent urinary tract infection 204700309 N39.0 Migraine 93477061 G43.90 9 [id number] MD Dimitris Salazar (Adult Med) [address] [place] [address] [phone] 0 10/09/2018 13:37:34 10/10/2018 09:20:36 Diabetes mellitus 84912508 E11.41 hga1c is 5.9% 06-14-2017 , she is informed in office. Has enough medication s. Blood sugar is 141 mg%. 10-09-2018 .type 2 well controlled , no medical contraindi cation for left eye cataract operation, will contact her ophthalmol ogist Dr. Watts office today. [id number] [facility] [address] [place] [address] [phone] 0 01/04/2019 11:44:38 01/04/2019 12:50:56 Elbow fracture 280401658 S42.402A [id number] Tarun Ann MD [facility] (Adult Med) [address] [place] [address] [phone] 03/05/2019 16:07:19 03/06/2019 08:50:00 Irritable bowel syndrome characterized by alternating bowel habit 325411943 K58.9 Discussed with patient. [id number] Tarun Ann MD [facility] (Adult Med) [address] [place] [address] [phone] 04/11/2019 10:48:45 04/12/2019 12:49:00 Irritable bowel syndrome characterized by alternating bowel habit 590920778 K58.9 Discussed with patient. She has enough dicyclomin e and questran refilled. Type 2 rosalia betes mellitus without complication 353705697 E11.9 [id number] Tarun Ann MD [facility] (Adult Med) [address] [place] [address] [phone] 0 06/14/2019 10:19:56 07/08/2019 15:51:59 Chronic obstructive pulmonary disease 50326217 J44.9 Stable. nERVE SMOKED, . on ventolin. Gastroesop hageal reflux disease 681084451 K21.9 Stable. Osteoarthr itis of knee 297439189 M17.9 Under the care of a orthopedic care. Lumbar spondylosis 20429 0009 M47.896 Under the care of his pain management clinic. Chronic sciatica 2487016 01 M54.30 Under the care of pain management clinic. Diabetic p eripheral neuropathy 559065795 E11.40 Got used to it she said, comfortabl e in wearing proper shoes. Hyperlipidemia 19189630 E78.5 Low saturated fat diet, exercise and lose some weight. Essential hypertension 46063378 I10 Low salt diet. On atenolol, has enough medication s. Diabetes mellitus 105698 09 E11.41 hga1c is 5.9% 06-14-2017 , she is informed in office. Has enough medication s. Blood sugar is 141 mg%. 10-09-2018 .type 2 well controlled , no medical contraindi cation for left eye cataract operation, will contact her ophthalmol ogist Dr. Watts office today. Blood sugar 151 mg%. 05-14-2019 . Migraine 66306453 G43.90 9 Stable. Administra tion of influenza vaccine 93258178 Z23 Patient tolerated the shot well. [id number] [facility] [address] [place] [address] [phone] 0 07/26/2019 10:02:30 07/29/2019 10:05:11 Herpes zoster 6065007 B02.9 Chronic cough 91640470 R 05 [id number] Marc Salazar MD [facility] (DIRECTOR OF ENTERTAINMENT) [address] [place] [address] [phone] 08/21/2019 12:09:33 08/21/2019 14:08:55 Gynecologic examination 42470572 Z01.419 Screening mammography 24 286375 Z12.31 Screening for osteoporosis 438309713 Z13.820 Atrophic vaginitis 44642 000 N95.2 Menopausal flushing 1984 22401 N95.1 Menopausal syndrome 1237 28559 N95.9 Diabetes mellitus 078375 09 E11.41 Rheumatoid arthritis 698 58709 M06.9 Chronic ob structive pulmonary disease 66450712 J44.9 [id number] Tarun Ann MD [facility] (Adult Med) [address] [place] [address] [phone] 0 09/03/2019 09:58:15 09/04/2019 14:30:23 Chronic pain 41209715 G89.29 Pain all over. Migraine 91719219 G43.90 9 Stable. She wants to be referred to Dr. Cruz. Pain in left foot 665279 0018 49023 M79.672 Recovering , able to walk without assistance . Type 2 rosalia betes mellitus without complication 834511709 E11.9 Diabetic diet, exercise, keep the weight down. [id number] MD Dimitris Salazar (Adult Med) [address] [place] [address] [phone] 10/07/2019 10:27:57 10/08/2019 15:07:30 Senile osteoporosis 79815502 M81.0 postmenopa usal. [id number] MD Dimitris Salazar (Adult Med) [address] [place] [address] [phone] 12/03/2019 10:25:14 12/04/2019 04:25:36 Diabetes mellitus 18277968 E11.41 hga1c is 5.9% 06-14-2017 , she is informed in office. Has enough medication s. Blood sugar is 141 mg%. 10-09-2018 .type 2 well controlled , no medical contraindi cation for left eye cataract operation, will contact her ophthalmol ogist Dr. Watts office today. Blood sugar 151 mg%. 05-14-2019 . Essential hypertension 71659326 I10 Low salt diet. On atenolol, has enough medication s. Type 2 rosalia betes mellitus without complication 870639699 E11.9 Diabetic diet, exercise, keep the weight down. [id number] MD Dimitris Sal[facility] (Adult Med) [address] [place] [address] [phone] 0 02/12/2020 10:04:35 02/13/2020 14:34:06 Chronic obstructive pulmonary disease 12056115 J44.9 Stable. nERVE SMOKED, . on ventolin. [id number] MD Dimitris Salazar (Adult Med) [address] [place] [address] [phone] 0 03/27/2020 09:40:53 03/30/2020 18:45:32 Migraine 80394062 G43.909 Stable. She wants to be referred to Dr. Cruz. Arturo ve rheumatoid arthritis 472779290 M06.00 Under the care of her rrheumatol ogist. Diabetic p eripheral neuropathy 705067969 E11.40 Got used to it she said, comfortabl e in wearing proper shoes. Essential hypertension 41026693 I10 Low salt diet. On atenolol, has enough medication s. [id number] Tarun Ann MD [facility] (Adult Med) [address] [place] [address] [phone] 06/16/2020 15:34:19 06/17/2020 10:55:18 Chronic obstructive pulmonary disease 49372276 J44.9 Stable. nERVE SMOKED, . on ventolin. Chronic he adache disorder 536574599 G44.89 Wants refill butalbital . [id number] Tarun Ann MD [facility] (Adult Med) [address] [place] [address] [phone] 08/26/2020 08:09:02 08/27/2020 10:10:30 Pain of ear 310293069 H92.09 Both ears pain, Z natalee failed to do the trick., agreed for the ENT referral Dr. higgins. [id number] Tarun Ann MD [facility] (Adult Med) [address] [place] [address] [phone] 0 10/19/2020 08:22:56 10/20/2020 10:13:56 Chronic obstructive pulmonary disease 54939590 J44.9 Stable. nERVE SMOKED, . on ventolin. Chronic sciatica 4360972 01 M54.30 Under the care of pain management clinic. Diabetes mellitus 520774 09 E11.41 hga1c is 5.9% 06-14-2017 , she is informed in office. Has enough medication s. Blood sugar is 141 mg%. 10-09-2018 .type 2 well controlled , no medical contraindi cation for left eye cataract operation, will contact her ophthalmol ogist Dr. Watts office today. Blood sugar 151 mg%. 05-14-2019 . On pioglitazo ne. Diabetic p eripheral neuropathy 204316722 E11.40 Got used to it she said, comfortabl e in wearing proper shoes. Essential hypertension 13463945 I10 Low salt diet. On atenolol, has enough medication s. Gastroesop hageal reflux disease 451736064 K21.9 Stable. On omeprazole . Hyperlipidemia 61045974 E78.5 Low saturated fat diet, exercise and lose some weight. Lumbar spondylosis 33488 0009 M47.896 Under the care of his pain management clinic. Menopausal syndrome 1237 75651 N95.9 Under the care of her gynecologi st. Migraine 55200714 G43.90 9 Stable. She wants to be referred to Dr. Cruz. On butalbital -acetamino phen -caffeine. Osteoarthr itis of knee 360160677 M17.9 Under the care of a orthopedic care., on meloxicam [id number] Tarun Ann MD [facility] ([facility]) [address] [place] [address] [phone] 0 01/13/2021 11:22:37 01/14/2021 11:24:59 Bilateral tinnitus 6452831245 102 H93.13 Will refer to ENT. She agreed,. Chronic sciatica 1629343 01 M54.30 Under the care of pain management clinic. Cystocele 064093870 N81. 10 Under the care of her gynecologi st. Diabetes mellitus 033483 09 E11.41 hga1c is 5.9% 06-14-2017 , she is informed in office. Has enough medication s. Blood sugar is 141 mg%. 10-09-2018 .type 2 well controlled , no medical contraindi cation for left eye cataract operation, will contact her ophthalmol ogist Dr. Watts office today. Blood sugar 151 mg%. 05-14-2019 . On pioglitazo ne. Diabetic p eripheral neuropathy 331025410 E11.40 Got used to it she said, comfortabl e in wearing proper shoes. Essential hypertension 70059882 I10 Low salt diet. On atenolol, has enough medication s. BP is 110/70 mm HG. 01-13-2021 . Gastroesop hageal reflux disease 350511249 K21.9 Stable. On omeprazole . Hyperlipidemia 57198913 E78.5 Low saturated fat diet, exercise and lose some weight. Insomnia 774101950 G47.0 0 On diazepam.f rom her psychiatri st. Lumbar spondylosis 08123 0009 M47.896 Under the care of his pain management clinic. Migraine 50066858 G43.90 9 Stable. She wants to be referred to Dr. Cruz. On butalbital -acetamino phen -caffeine. Osteoarthritis 520822927 M19.90 On meloxicam. Cervical arthritis 09266 1000 M46.92 She agreed for the referral to Nathen CABRERA . [id number] MD Dimitris Salazar (Adult Med) [address] [place] [address] [phone] 0 04/05/2021 14:34:31 04/07/2021 17:19:42 Chronic obstructive pulmonary disease 71310762 J44.9 Stable. never SMOKED, . on ventolin. Chronic sciatica 3722167 01 M54.30 Under the care of pain management clinic. Cystocele 802536107 N81. 10 Under the care of her gynecologi st. Diabetes mellitus 813486 09 E11.41 hga1c is 5.9% 06-14-2017 , she is informed in office. Has enough medication s. Blood sugar is 141 mg%. 10-09-2018 .type 2 well controlled , no medical contraindi cation for left eye cataract operation, will contact her ophthalmol ogist Dr. Watts office today. Blood sugar 151 mg%. 05-14-2019 . On pioglitazo ne. Diabetic p eripheral neuropathy 601316152 E11.40 Got used to it she said, comfortabl e in wearing proper shoes. Essential hypertension 02711749 I10 Low salt diet. On atenolol, has enough medication s. BP is 110/70 mm HG. 01-13-2021 . Blood pressure is 130/80 mm Hg. today in this office. Gastroesop hageal reflux disease 052134582 K21.9 Stable. On omeprazole . Hyperlipidemia 76287358 E78.5 Low saturated fat diet, exercise and lose some weight. Insomnia 254261362 G47.0 0 On diazepam.f rom her psychiatri st. Lumbar spondylosis 53199 0009 M47.896 Under the care of his pain management clinic. Menopausal syndrome 1237 63549 N95.9 Under the care of her gynecologi st. Migraine 57444298 G43.90 9 Stable. She wants to be referred to Dr. Cruz. On butalbital -acetamino phen -caffeine. Osteoarthritis 411918244 M19.90 On meloxicam. under the care of her specialist . [id number] MD Dimitris Salazar (Adult Med) [address] [place] [address] [phone] 0 06/23/2021 16:23:05 06/24/2021 05:33:35 Chronic obstructive pulmonary disease 69956870 J44.9 Stable. never SMOKED, . on ventolin. Chronic sciatica 6474184 01 M54.30 Under the care of pain management clinic. Cystocele 299772048 N81. 10 Under the care of her gynecologi st. Diabetes mellitus 535980 09 E11.41 hga1c is 5.9% 06-14-2017 , she is informed in office. Has enough medication s. Blood sugar is 141 mg%. 10-09-2018 .type 2 well controlled , no medical contraindi cation for left eye cataract operation, will contact her ophthalmol ogist Dr. Watts office today. Blood sugar 151 mg%. 05-14-2019 . On pioglitazo ne. Diabetic p eripheral neuropathy 686675163 E11.40 Got used to it she said, comfortabl e in wearing proper shoes. Essential hypertension 23518013 I10 Low salt diet. On atenolol, has enough medication s. BP is 110/70 mm HG. 01-13-2021 . Blood pressure is 130/80 mm Hg. today in this office. BP is 132/80 mm Hg 06-23-2021 . Mass of neck 637443219 R 22.1 lump on the posterior neck when she turns. Insomnia 330648902 G47.0 0 On diazepam.f rom her psychiatri st. Hopefully her neurologis t will take care of this prescripti on. Lesion of skin of face 6034064246 06 L98.9 On her nose , agreed to see a dermatolog ist. [id number] Tarun Ann MD [facility] (Adult Med) [address] [place] [address] [phone] 07/22/2021 11:56:29 07/23/2021 10:31:05 Rheumatoid arthritis 38202250 M06.09 Insurance referral request Generalize d osteoarthritis 444759524 M15.9 Stable. Osteoarthritis 810275427 M19.90 On meloxicam. under the care of her specialist . Chronic ob structive pulmonary disease 69998190 J44.9 Stable. never SMOKED, . on ventolin. Chronic sciatica 2827962 01 M54.30 Under the care of pain management clinic. Recurrent urinary tract infection 114767653 N39.0 Will send urine for culture as back up, empirical ABT ordered she agreed, [id number] MD Dimitris Salazar (Adult Med) [address] [place] [address] [phone] 0 11/24/2021 12:41:51 12/06/2021 11:53:30 Acute respiratory infections 475515679 J22 She agreed to try the medication s as ordered and chest x ray. Since she is using immune suppressio n agent for her RA. Rheumatoid arthritis 698 96333 M06.09 Insurance referral request Chronic ob structive pulmonary disease 24392874 J44.9 Stable. never SMOKED, . on ventolin. Diabetes mellitus 051475 09 E11.41 hga1c is 5.9% 06-14-2017 , she is informed in office. Has enough medication s. Blood sugar is 141 mg%. 10-09-2018 .type 2 well controlled , no medical contraindi cation for left eye cataract operation, will contact her ophthalmol ogist Dr. Watts office today. Blood sugar 151 mg%. 05-14-2019 . On pioglitazo ne. [id number] [facility] [address] [place] [address] [phone] 01/10/2022 13:42:36 01/11/2022 10:52:28 Aphthous ulcer of mouth 156945857 K12.0 She agreed to try med as ordered. Contact dermatitis 37519 004 L25.9 Possible poison linda , or poison sumac, or poison oak. [id number] MD [facility] [address] [place] [address] [phone] 06/07/2022 11:54:25 06/08/2022 12:21:25 Hypertensive disorder 70523035 I10 As 06-07-2022 . blood pressure is 158/90 , she already got 90 days of atenolol, has normal renal function, will add losartan. Dyslipidemia 402653910 E 78.5 Low saturated fat diet.She is on diabetic diet, will add statin to low cholestero l to minimize the cardiovasc ular risk, she agreed. Contusion of left knee 1600003999 1181437 S80.02XD [place] left knee and proximal tibia is still swollen and sore. Will x ray. PT and orthopedic referral. Diabetes mellitus 152554 09 E11.41 hga1c is 5.9% 06-14-2017 , she is informed in office. Has enough medication s. Blood sugar is 141 mg%. 10-09-2018 .type 2 well controlled , no medical contraindi cation for left eye cataract operation, will contact her ophthalmol ogist Dr. Watts office today. Blood sugar 151 mg%. 05-14-2019 . On pioglitazo ne. [id number] MD Dimitris Salazar (Adult Med) [address] [place] [address] [phone] 08/09/2022 12:00:30 08/10/2022 14:59:33 Diabetes mellitus 90854475 E11.41 hga1c is 5.9% 06-14-2017 , she is informed in office. Has enough medication s. Blood sugar is 141 mg%. 10-09-2018 .type 2 well controlled , no medical contraindi cation for left eye cataract operation, will contact her ophthalmol ogist Dr. Watts office today. Blood sugar 151 mg%. 05-14-2019 . On pioglitazo ne. Obesity 997494977 E66.9 BMI is 31. she has been advised to watch her diabetic diet, exercise and keep the weight down. Tremor 67191362 R25.1 Involuntar y shaking of right leg . wants to see neurologis t Dr. [place]. [place]. Urge incon tinence of urine 85757175 N39.41 Oxybutynin is not working. will try myrbetriq. [id number] MD Dimitris Salazar (Adult Med) [address] [place] [address] [phone] 11/08/2022 13:57:09 11/09/2022 09:54:32 Diabetes mellitus 99263830 E11.41 hga1c is 5.9% 06-14-2017 , she is informed in office. Has enough medication s. Blood sugar is 141 mg%. 10-09-2018 .type 2 well controlled , no medical contraindi cation for left eye cataract operation, will contact her ophthalmol ogabbey Watts office today. Blood sugar 151 mg%. 05-14-2019 . On pioglitazo ne. Diabetic p eripheral neuropathy 726661006 E11.40 Got used to it she said, comfortabl e in wearing proper shoes. Essential hypertension 47382408 I10 Low salt diet. On atenolol, has enough medication s. BP is 110/70 mm HG. 01-13-2021 . Blood pressure is 130/80 mm Hg. today in this office. BP is 132/80 mm Hg 06-23-2021 .. As 11-08-22, BP is 142/70, vu monitor BP. Hyperlipidemia 87900587 E78.5 Low saturated fat diet, exercise and lose some weight. Chronic ob structive pulmonary disease 45961630 J44.9 Stable. never SMOKED, . on ventolin. nerve smokes, but used to live close by the [place] [id number] Tarun Ann MD [facility] (Adult Med) [address] [place] [address] [phone] 12/12/2022 14:53:32 12/15/2022 16:45:09 Diabetes mellitus 54754745 E11.41 hga1c is 5.9% 06-14-2017 , she is informed in office. Has enough medication s. Blood sugar is 141 mg%. 10-09-2018 .type 2 well controlled , no medical contraindi cation for left eye cataract operation, will contact her ophthalmol ogist Dr. Watts office today. Blood sugar 151 mg%. 05-14-2019 . On pioglitazo ne. Rheumatoid arthritis 698 64434 M06.09 Insurance referral request . Under the care of her rheumatolo gist. Essential hypertension 58492351 I10 Low salt diet. On atenolol, has enough medication s. BP is 110/70 mm HG. 01-13-2021 . Blood pressure is 130/80 mm Hg. today in this office. BP is 132/80 mm Hg 06-23-2021 .. As 11-08-22, BP is 142/70, vu monitor BP. As 12-12-22, BP is 130/68 , to continue current med. Such as atenolol and losratan. Gastroesop hageal reflux disease 808005460 K21.9 Stable. On omeprazole . [id number] MD Dimitris Salazar (Adult Med) [address] [place] [address] [phone] 0 02/13/2023 16:55:05 02/16/2023 12:55:53 Pain of left knee joint 3831401283 97949 M25.562 She is going to see a specialist . appointmen t been made. Type 2 rosalia betes mellitus 77623792 E11.9 DIABETIC DIET, WILL refer FOR THE ANNUAL EYE EX. [id number] Tarun Ann MD [facility] (Adult Med) [address] [place] [address] [phone] 0 06/23/2023 12:04:37 06/27/2023 16:16:12 Allergic rhinitis 13252939 J30.9 sinus congestion , with post nasal drainage. used to be second hand smoker. Use albuterol as rescue as needed. Osteoarthr itis of knee 524694870 M17.9 Under the care of a orthopedic care., on meloxicam and her rheumatolo gist. Obesity 219597508 E66.9 BMI is 31. she has been advised to watch her diabetic diet, exercise and keep the weight down. BMI is 33.8 today 06-23-23. Mammogram declined 22464 5004 Z53.20 She declined 06-23-23. Influenza vaccination declined 105122732 Z28.21 She declined today 06-23-23. [id number] Tarun Ann MD [facility] (Adult Med) [address] [place] [address] [phone] 08/29/2023 12:02:08 08/31/2023 15:24:40 Abdominal mass 757304230 R19.00 US of abdomen, Go to ER in case any time for any concern, she agreed. Health Concerns Section Related Observation LastModified by Organization Detai ls LastModified Time None Recorded Concern Status LastModified by Organization Details LastModified Time None Recorded Advance Directives Directive N: Payers Insurance Date Sequence Insurance Name Policy Number Policy Mejia Covered Member ID Mejia Member ID Guarantor Name 08/27/2019 3 [employer] (MEDICARE SUPPLEMENT) Sunshine Wick [id number] Sunshine Wick 09/04/2019 2 [place] Sunshine Wick [id number] Sunshine Wick 08/28/2023 [place] [facility] Sunshine Wick [id number] Sunshine Wick 08/09/2022 1 [facility] (MEDICARE REPLACEMENT/A DVANTAGE - HMO) [id number] Sunshine Cardozo Wick [id number] Sunshine Taylore 08/26/2023 1 [facility] (MEDICARE REPLACEMENT/A DVANTAGE - HMO) [id number] Sunshine Taylore [id number] Sunshine Taylore 08/21/2019 1 [place] Sunshine Taylore [id number] Sunshine Wick 08/21/2019 2 [employer] [employer] [place] [id number] Sunshine Wick [id number] Sunshine Taylore 09/03/2019 [place] [facility] Sunshine Wick [id number] Sunshine Taylore 02/24/2017 PAYMENT PLAN Sunshine Wick 03/08/2017 PAYMENT PLAN Sunshine Wick 04/30/2017 PAYMENT PLAN Sunshineronald Wick Notes Date Note Type Note Provider Name and Address Organization Details Recorded Time 12/12/2022 text/html Office visit, allergic to cipro, penicillins, poison linda, oak and sumac extracts, also has rheumatoid arthritis. under the care of her host and hostess. gained some weight, used to be second -hand smoker hen worked at [employer] in her younger days. Refilled inhaler, but dose not thank she is ready to see a lung specialist yet. also type 2 DM A1 c is 6.5. Tarun Ann MD Attn: Accounting[address] [place], [address], [facility] 12/12/2022 16:11:08 02/13/2023 text/html Office visit, allergic to cipro, penicillins, poison linda extract, poison oak extract and poison sumac extract. Had leg knee Carrion's cyst aspirated, and going to see a vaccine specialist. Also wants to refill med for her type 2 DM ,pioglitazone. Tarun Ann MD Attn: Accounting[address] [place], [address], [facility] 02/13/2023 17:39:38 06/23/2023 text/html Office visit. allergic to penicillin, cipro. poison linda extract, poison oak extract and poison sumac extract. had cataracts operations, can see well. Got IV infusion/mon at her host and hostess office, for her osteoarthritis, now her left knee is not hurting any more. Has enough med refills. No chest pain, no difficulty of breathing, No fever. No other complaints. ROS as noted in HPI. sinus congestion . Tarun Ann MD Attn: Accounting,[address] [facility], [place], [address], [facility] 06/23/2023 12:49:46 08/29/2023 text/html Office visit, allergic to cipro. penicillins. poison linda extract. poison oak extract, and poison sumac extract. C/C lower abdomen mass felling. , history of total hysterectomy. No other complaints. ROS as noted in the HPI.Her A1c is 5.7 % today, she is informed. Tarun Ann MD Attn: Accounting,[address] [facility], [place], [address], [facility] 08/29/2023 13:00:22 OBGyn Episode Ob Episode Information Episode Created Date Number of Fetuses Patient Bloodtype Patient rh Status Prepregnancy Weight lbs Domestic Partner Domestic Partner Phone Father Name Automobile Mechanic Status 02/16/20 16 1 CLOSED Fetus Data First Name Last Name Admitted to NICU Weight (g) Sex Living Outcome Pediatric Complications Fetus ID Race Codes Race Delivery Type 2721.55 2 F Full Term 87669 Vaginal Nhan Calculation Initial Nhan Date Initial [...] Domestic Partner Domestic Partner Phone Father Name Automobile Mechanic Status 02/16/20 16 1 CLOSED Fetus Data First Name Last Name Admitted to NICU Weight (g) Sex Living Outcome Pediatric Complications Fetus ID Race Codes Race Delivery Type 3628.73 6 F Prematur e 32772 Vaginal Nhan Calculation Initial Nhan Date Initial [...] Domestic Partner Domestic Partner Phone Father Name Automobile Mechanic Status 02/16/20 16 1 CLOSED Fetus Data First Name Last Name Admitted to NICU Weight (g) Sex Living Outcome Pediatric Complications Fetus ID Race Codes Race Delivery Type 4082.32 8 M Full Term 55598 Vaginal Nhan Calculation Initial Nhan Date Initial [...]
--- OUTSIDE RECORDS SUMMARY | 2025-02-10 14:00 | XMS_ITS | Clinical Summary ---
Author Organization [facility] Address [address] [place] [address] Phone Care Team Providers Care Sawmill Equipment Operator Name Role Phone Miguel Beltre MD Primary Care Provider [phone] Allergies Active Allergy Reactions Criticality Noted Date Comments Ciprofloxacin Fever Medium 05/19/2016 Fever/ hives Cephalexin Diarrhea Low 12/24/2018 Penicillins Rash Medium 03/22/2016 High fever, Poison Alivia Extract Itching High 12/24/2018 Poison [place] Extract Itching High 12/24/2018 Poison Sumac Extract [...] not swallow. 60 each 2 4 Active pioglitazone (ACTOS) 30 mg tablet Take 1 tablet (30 mg total) by mouth daily 90 tablet 2 5 Active omeprazole (PriLOSEC) 40 mg capsule Take 1 capsule by mouth once daily 90 capsule 2 5 Active Active Problems Problem Noted Date Diagnosed Date Encounter for screening colonoscopy 04/30/2024 Chronic left shoulder pain 01/24/2024 Tinnitus, bilateral 03/25/2021 Otalgia, left 03/25/2021 Overweight with body mass index (BMI) 25.0-29.9 02/12/2019 Acute urinary tract infection 02/12/2019 Anogenital herpesviral infection 02/12/2019 Bacterial vaginosis 02/12/2019 Breast lump 02/12/2019 Candidiasis 02/12/2019 Chronic obstructive lung disease 02/12/2019 Assessment & Plan (09/03/2024 11:43 AM CHARGE PREPARATION TECHNICIAN): stable Assessment & Plan (04/30/2024 12:25 PM CDT): Add Breo inhaler. Assessment & Plan (01/24/2024 11:00 AM CDT): stable Chronic sciatica 02/12/2019 Diabetic peripheral neuropathy 02/12/2019 Essential hypertension 02/12/2019 Assessment & Plan (09/03/2024 11:43 AM CHARGE PREPARATION TECHNICIAN): Stable, doing well Assessment & Plan (04/30/2024 [...] 08/28/2017 Assessment & Plan (09/03/2024 11:44 AM CHARGE PREPARATION TECHNICIAN): Has follow up with ortho Asthma 08/28/2017 Fibromyalgia 08/28/2017 Bladder prolapse, female, acquired 08/28/2017 Rotator cuff syndrome 08/28/2017 Lumbar spinal stenosis 08/28/2017 Macular degeneration 08/28/2017 Type 2 diabetes mellitus with peripheral neuropa thy 08/27/2017 Assessment & Plan (09/03/2024 11:44 AM CHARGE PREPARATION TECHNICIAN): Doing well Assessment & Plan (01/24/2024 11:00 [...] on file Legal Sex Female 12:13 AM CHARGE PREPARATION TECHNICIAN Gender Identity Not on file Sexual Orientation Not on file Obstetrics History Last Filed Vital Signs Vital Sign Reading Time Taken Comments Blood Pressure 149/91 09/03/2024 11:05 AM CHARGE PREPARATION TECHNICIAN Pulse 66 09/03/2024 11:05 AM CHARGE PREPARATION TECHNICIAN Temperature 36.6 C (97.9 F) 12/24/2018 1:22 PM CDT Respiratory Rate 18 12/24/2018 5:10 PM CDT Oxygen Saturation 100% 12/24/2018 5:10 PM CDT Inhaled Oxygen Concentration - - Weight 96.6 kg (213 lb) 09/03/2024 11:05 AM CHARGE PREPARATION TECHNICIAN Height 165.1 cm (5' 5) 09/03/2024 11:05 AM CHARGE PREPARATION TECHNICIAN Body Mass Index 35.45 09/03/2024 11:05 AM CHARGE PREPARATION TECHNICIAN Plan of Treatment Scheduled Procedures Name Priority [...] Vaccine (3 of 3) 06/06/2020 04/11/2020, 06/07 Breast Cancer Screening-Mammogram 11/11/2020 020, 08/14/2014 Covid-19 Vaccine (2023- 5 season) 2024 04/18/2024, 07/14/2023, 05/24/2022, Additional history exists Albumin Creatinine Ratio, Urine 01/23/2025 Lipid Panel 01/23/2025 01/24/2024 eGFR 01/23/2025 01/24/2024 Hemoglobin A1C 03/03/2025 09/03/2024, 04/08, 01/24/2024 Influenza Vaccine (#1) 2025 , 07/14/2023, 05/24/2022, Additional history exists DTaP/Tdap/Td Vaccine (4 - Td or Tdap) 04/18/2034 04/18/2024, 08/07/2015, 06/07/2015 Pneumococcal vaccine 65+ Completed 10/27/2021, 05/07 Procedures Procedure Name Priority Date/Time Associated Diagnosis Comments POCT HEMOGLOBIN A1C Routine 09/03/2024 11:07 AM CHARGE PREPARATION TECHNICIAN Type 2 diabetes mellitus without complication, without long-term current use of insulin (HCC) ALBUMIN CREATININE RATIO, URINE Routine 01/24/2024 11:15 AM CDT Type 2 diabetes mellitus without complication, without long-term current use of insulin (HCC) Encounter for lipid screening for cardiovascular disease Type 2 diabetes mellitus with peripheral neuropathy (HCC) Essential hypertension Chronic bronchitis, unspecified chronic bronchitis type (HCC) Primary insomnia COMPREHENSIVE METABOLIC PANEL Routine 01/24/2024 11:09 AM CDT Type 2 diabetes mellitus without complication, without long-term current use of insulin (HCC) Encounter for lipid screening for cardiovascular disease Type 2 diabetes mellitus with peripheral neuropathy (HCC) Essential hypertension Chronic bronchitis, unspecified chronic [...] (ABNORMAL) POCT hemoglobin A1c (09/03/2024 11:07 AM CHARGE PREPARATION TECHNICIAN) Hemoglobin A1C, POC 5.9 4.0 - 5.6 % Blood 09/03/2024 11:0 7 AM CHARGE PREPARATION TECHNICIAN Miguel Beltre MD POINT OF CARE TEST [...] 01/25/2024 3:35 AM CDT Performed at: - [address] [id number] Spreader Operator: Kan Keane PhD, Phone: [phone] us Miguel Beltre MD LAB URINE ORDERABLES Final [...] 01/25/2024 3:35 AM CDT Performed at: - [address] [id number] Spreader Operator: Kan Keane PhD, Phone: [phone] Miguel Beltre MD LAB BLOOD ORDERABLES Final Re sult [facility] - * POCT lipid panel (01/24/2024 10:32 AM [...] LEFT breast was performed by a trained cpr instructor and by Dr. Valdez. BREAST PARENCHYMAL COMPOSITION: [...] LEFT breast was performed by a trained cpr instructor and by Dr. Valdez. BREAST PARENCHYMAL COMPOSITION: [...] Recently Relevant to Health Maintenance Insurance MEDICARE [facility] Address: [address] [place] [address] COMMERCIAL GENERIC [employer] SASHA Sommers [id number] [facility] MDCR HMO REF [place] [id number] [facility] MEDICARE ADVANTAGE [place] [id number] BLUE TRADITIONAL [employer] [facility] Address: [address] [place] [address] MEDICARE ADVANTAGE [address] MEDICARE ADVANTAGE Care Teams Sawmill Equipment Operator Relationship Specialty Start Date End Date Miguel Beltre MD PCP - General Internal Medicine 01/24/24
--- OUTSIDE RECORDS SUMMARY | 2025-02-10 14:00 | XMS_ITS | Referral Summary ---
Author Organization [facility] Address [address] [place] [address] Phone Care Team Providers Care Roll Scale Man Name Role Phone Miguel Beltre MD Primary Care Provider [phone] Allergies Active Allergy Reactions Criticality Noted Date Comments Ciprofloxacin Fever Medium 05/19/2016 Fever/ hives Cephalexin Diarrhea Low 12/24/2018 Penicillins Rash Medium 03/22/2016 High fever, Poison Alivia Extract Itching High 12/24/2018 Poison [place] Extract Itching High 12/24/2018 Poison Sumac Extract [...] 02/12/2019 Assessment & Plan (09/03/2024 11:43 AM ALMOND HULLER): stable Assessment & Plan (04/30/2024 12:25 PM CDT): Add Breo inhaler. Assessment & Plan (01/24/2024 11:00 AM CDT): stable Chronic sciatica 02/12/2019 Diabetic peripheral neuropathy 02/12/2019 Essential hypertension 02/12/2019 Assessment & Plan (09/03/2024 11:43 AM ALMOND HULLER): Stable, doing well Assessment & Plan (04/30/2024 [...] 08/28/2017 Assessment & Plan (09/03/2024 11:44 AM ALMOND HULLER): Has follow up with ortho Asthma 08/28/2017 Fibromyalgia 08/28/2017 Bladder prolapse, female, acquired 08/28/2017 Rotator cuff syndrome 08/28/2017 Lumbar spinal stenosis 08/28/2017 Macular degeneration 08/28/2017 Type 2 diabetes mellitus with peripheral neuropa thy 08/27/2017 Assessment & Plan (09/03/2024 11:44 AM ALMOND HULLER): Doing well Assessment & Plan (01/24/2024 11:00 [...] on file Legal Sex Female 12:13 AM ALMOND HULLER Gender Identity Not on file Sexual Orientation Not on file Last Filed Vital Signs Vital Sign Reading Time Taken Comments Blood Pressure 149/91 09/03/2024 11:05 AM ALMOND HULLER Pulse 66 09/03/2024 11:05 AM ALMOND HULLER Temperature 36.6 C (97.9 F) 12/24/2018 1:22 PM CDT Respiratory Rate 18 12/24/2018 5:10 PM CDT Oxygen Saturation 100% 12/24/2018 5:10 PM CDT Inhaled Oxygen Concentration - - Weight 96.6 kg (213 lb) 09/03/2024 11:05 AM ALMOND HULLER Height 165.1 cm (5' 5) 09/03/2024 11:05 AM ALMOND HULLER Body Mass Index 35.45 09/03/2024 11:05 AM ALMOND HULLER Plan of Treatment Scheduled Procedures Name Priority Associated Diagnoses Date/Ti me COLONOSCOPY Open Access Encounter for screening colonoscopy Procedures Procedure Name Priority Date/Time Associated Diagnosis Comments POCT HEMOGLOBIN A1C Routine 09/03/2024 11:07 AM ALMOND HULLER Type 2 diabetes mellitus without complication, without [...] (ABNORMAL) POCT hemoglobin A1c (09/03/2024 11:07 AM ALMOND HULLER) Hemoglobin A1C, POC 5.9 4.0 - 5.6 % Blood 09/03/2024 11:0 7 AM ALMOND HULLER Miguel Beltre MD POINT OF CARE TEST [...] - 01/25/2024 3:35 AM CDT Performed at: [address] [id number] [place] Utility Worker: Kan Keane PhD, Phone: [phone] us Miguel Beltre MD LAB URINE ORDERABLES [...] 01/25/2024 3:35 AM CDT Performed at: - [address] [id number] [place] Utility Worker: Kan Keane PhD, Phone: [phone] Miguel Beltre MD LAB BLOOD ORDERABLES Final Re sult [facility] - 01 * POCT lipid panel (01/24/2024 10:32 AM CDT) Cholesterol, POC 155 mg/dL HDL, POC 45 mg/dL Triglycerides, POC 154 mg/dL LDL Cholesterol POC 79 mg/dL Chol/HDL Ratio, POC 3.4 Non-HDL Cholesterol, POC 110 mg/dL Cholesterol Total, POC 155 mg/dL Capillary blood 01/24/2024 1 0:32 AM CDT us Miguel Beltre MD POINT OF CARE TEST [...] is recommended. Annual screening mammography is recommended. (sEriberto Avila also participated in this examination. Electronically [...] LEFT breast was performed by a trained nurse quality and by Dr. Valdez. BREAST PARENCHYMAL COMPOSITION: [...] LEFT breast was performed by a trained nurse quality and by Dr. Valdez. BREAST PARENCHYMAL COMPOSITION: [...] Recently Relevant to Health Maintenance Insurance MEDICARE [facility] TRADITIONAL COMMERCIAL GENERIC [facility] MDCR HMO REF [address] MEDICARE ADVANTAGE BLUE TRADITIONAL OOS [address] MEDICARE ADVANTAGE [address] MEDICARE ADVANTAGE Care Teams Roll Scale Man Relationship Specialty Start Date End Date Miguel Beltre MD PCP - General Internal Medicine 01/24/24
--- OUTSIDE RECORDS SUMMARY | 2025-02-10 14:01 | XMS_ITS | Clinical Summary ---
Author Organization [facility] Address [address] [place] [address] Care Team Providers Care Nail Welter Name Role Phone Tarun Lerma MD Primary Care Provider [phone] Source Comments [facility],non-owned Affiliates and Associated Physician Practices is amultiple site organization consisting of ambulatory clinics and hospital sitesin [place], [place], [place] and [place]. This disclosure is being madepursuant to the Care Everywhere program and may not contain all information available regarding this patient. Last updated 18.[facility] Allergies Active Allergy Reactions Criticality Noted Date Comments Cephalexin Diarrhea Low 12/24/2018 Ciprofloxacin 05/19/2016 Fever/ hives Extract Of Poison Alivia Itching High 12/24/2018 Penicillins Rash Medium 05/12/2016 High fever Medications * Be aware that medications may not be up to date on this document. Alwaysverify current medications with the patient. atenolol (TENORMIN) 100 MG tablet Take 1 Tab by mouth 03/21/2016 Active vitamin D3 (CHOLECACIFEROL ) 5000 UNITS Take 1 Tab by mouth [...] at Not on file Legal Sex Female 6:15 AM RESEARCH ASSOCIATE Gender Identity Not on file Sexual Orientation Not on file Last Filed Vital Signs Vital Sign Reading Time Taken Comments Blood Pressure 123/75 03/14/2017 3:28 PM CDT Pulse 70 07/26/2016 12:59 PM RESEARCH ASSOCIATE Temperature 36.8 C (98.2 F) 07/05/2016 2:31 PM RESEARCH ASSOCIATE Respiratory Rate 18 05/20/2016 11:59 AM CDT Oxygen Saturation 98% 07/26/2016 12:59 PM RESEARCH ASSOCIATE Inhaled Oxygen Concentration - - Weight 90.7 kg (200 lb) 03/07/2023 10:20 AM CDT Height 165.1 cm (5' 5) 03/07/2023 10:20 AM CDT Body Mass Index [...] 2003 ZOSTER VACCINE (1 of 2) 2003 COVID-19 VACCINE (1 - season) 2024 SCREENING FOR DIABETES 06/03/2024 , 06/03/2021, 05/20/2016, Additional history exists DEPRESSION SCREENING 08/07/2024 MEDICARE AWV CALENDAR YEAR 2024 INFLUENZA VACCINE (Season Ended) 2025 04/07/2017 Respiratory Syncytial Virus (RSV) Vaccine Pt: or [...] complete this topic MENINGOCOCCAL (Group B) VACCINE SHARED DECISION-MAKING Aged Out No longer eligible based on patient's age to complete this topic MENINGOCOCCAL GROUPS A/C/Y/W VACCINE Aged Out No longer eligible based on patient's age to complete this topic Medical Devices Implanted Type Area Experimental Assembler Device Identifier Shelf Expiration Date Model / Serial / Lot Mesh Srg Upsylon 35.4cm [id number] 2.8sq Implanted:Qty: 1 on 05/19/2016 by Preeti Rudolph MD at [facility] 02/03/2019 [id number] / / [id number] Procedures Procedure Name Priority Date/Time Associated Diagnosis Comments GLUCOSE - POINT OF CARE Routine 05/20/2016 8:13 AM CDT from Last 3 Months or Most Recently Relevant to Health Maintenance Results * (ABNORMAL) GLUCOSE - POINT OF CARE (05/20/2016 8:13 AM CDT) [facility] Glucose WB/POC 111(H) 70 - 106 mg/dL 05/20/2016 11:45 AM CDT [facility] Blood BLOOD SPECIMEN / Unknown 05/20/2016 8:13 AM CDT 05/20/2016 11:45 AM CDT Preeti Rudolph MD LAB - POINT OF CARE ORDERABLE S Final Result Performing Organization Address City/State/[facility] Co de Phone Number [facility] [address] [place] [address] from Last 3 Months or Most Recently Relevant to Health Maintenance Insurance [facility] MANAGED MEDICARE ADV [facility] MANAGED MEDICARE ADV Advance Directives * Full Code (Latest Code Status on File) Date Activated Date Inactivated Comments 05/19/2016 2:39 PM 05/20/2016 6:04 PM Care Teams Nail Welter Relationship Specialty Start Date End Date Tarun Lerma MD [address] [place] [address] PCP - General 10/20/22
== END 2025-02-10 13:57 | disposition home or self-care (01) ==
PROVIDERS: PCP Internal Medicine; Visit Provider Internal Medicine
DX: M85.89 Other specified disorders of bone density and structure, multiple sites (principal); Z78.0 Asymptomatic menopausal state
CPT/HCPCS: 77080

== ENCOUNTER 2025-04-19 13:59 | Emergency (ER) | payer MEDICARE, BC, SELFPAY ==
--- NOTE | ~2025-04-19 | XR_ITS ---
EXAMINATION: XR foot RT min 3V, 04/19/2025 14:25 CDT HISTORY: fall COMPARISON: No comparisons available. Findings: No acute fracture or malalignment. Severe degenerative changes of the first metatarsal phalangeal joint Soft tissues unremarkable. Impression: No acute fracture or malalignment. Reviewed, dictated and finalized at location A. Impression: No acute fracture or malalignment.
--- NOTE | ~2025-04-19 | CT_ITS ---
EXAMINATION: CT brain wo sommer, 04/19/2025 14:50 CDT HISTORY: fall COMPARISON: No comparisons available. Technique: Axial images obtained of the brain without contrast. One or more of the following dose reduction techniques were used: automated exposure control, adjustment of the mA and/or kV according to patient size, use of iterative reconstruction technique. Findings: No acute infarct or parenchymal hemorrhage. No abnormal mass or mass effect. No midline shift. No extra-axial fluid collections. No hydrocephalus. Mastoid air cells unremarkable. Sinuses and orbits unremarkable. No acute fracture. No significant facial or scalp soft tissue swelling evident. No radiopaque foreign body is seen. Impression: 1.No acute intracranial abnormality. Reviewed, dictated and finalized at location A. Impression: 1.No acute intracranial abnormality.
--- NOTE | ~2025-04-19 | XR_ITS ---
EXAMINATION: XR ankle RT min 3V, 04/19/2025 14:25 CDT HISTORY: fall COMPARISON: No comparisons available. Findings: No acute fracture or malalignment. Moderate degenerative changes. Large calcaneal spur. Severe Achilles enthesopathy Soft tissues unremarkable. Impression: No acute fracture or malalignment. Reviewed, dictated and finalized at location A. Impression: No acute fracture or malalignment.
--- NOTE | ~2025-04-19 | CT_ITS ---
EXAMINATION: CT cervical spine wo con COMPARISON: None HISTORY: fall TECHNIQUE: Axial images were obtained through the spine without IV contrast. Coronal, sagittal reconstruction images were obtained from the axial views. CT scan performed using dose optimization techniques including the following automated exposure control; adjustment of mA and/or kV; use of iterative reconstruction technique. Automatic exposure control was used to reduce radiation dose. Permanent radiation dose record is archived to PACS. FINDINGS: Moderate loss of vertebral height throughout with anterior osteophyte formation at C3-4, C4-5 C5-6 and C7 but no acute fracture or subluxation. Moderate loss of disc height throughout with multilevel facet hypertrophy producing moderate multilevel canal and foraminal stenosis, outpatient MRI is suggested Soft tissues unremarkable. Impression: No acute abnormality. Reviewed, dictated and finalized at location A. Impression: No acute abnormality.
[2025-04-19 14:03] VITALS: BP 132/84; PULSE 70; RESP 16; TEMP 36.8; O2SAT 95
[2025-04-19 14:08] VITALS: PULSE 70; RESP 18; TEMP 36.8; O2SAT 96
--- OUTSIDE RECORDS SUMMARY | 2025-04-19 15:14 | XMS_ITS | Clinical Summary ---
Author Organization [facility] Address [address] [place] [address] Phone Care Team Providers Care Senior Technical Specialist Name Role Phone Miguel Beltre MD Primary Care Provider [phone] Allergies Active Allergy Reactions Criticality Noted Date Comments Ciprofloxacin Fever Medium 05/19/2016 Fever/ hives Cephalexin Diarrhea Low 12/24/2018 Penicillins Rash Medium 03/22/2016 High fever, Poison Alivia Extract Itching High 12/24/2018 Poison Delafield Extract Itching High 12/24/2018 Poison Sumac Extract [...] once daily 90 capsule 2 5 Active budesonide-form oteroL (SYMBICORT) 160-4.5 mcg/actuation inhaler Inhale 2 puffs twice a day by inhalation route as directed for 30 days. Active dicyclomine (BENTYL) 10 mg capsule TAKE 1 CAPSULE BY MOUTH THREE TIMES DAILY NEEDED FOR ABDOMINAL PAIN, DIARRHEA 5 Active montelukast (SINGULAIR) 10 mg tablet Take 1 tablet (10 mg total) by mouth daily Active methotrexate 2.5 mg tablet TAKE 5 TABS BY MOUTH IN THE MORNING AND 5 TABS IN THE EVENING ONCE WEEKLY Active Active Problems Problem Noted Date Diagnosed Date Encounter for screening colonoscopy 04/30/2024 Chronic left shoulder pain 01/24/2024 Tinnitus, bilateral 03/25/2021 Otalgia, left 03/25/2021 Overweight with body mass index (BMI) 25.0-29.9 02/12/2019 Acute urinary tract infection 02/12/2019 Anogenital herpesviral infection 02/12/2019 Bacterial vaginosis 02/12/2019 Breast lump 02/12/2019 Candidiasis 02/12/2019 Chronic obstructive lung disease 02/12/2019 Assessment & Plan (03/03/2025 11:55 AM CDT): Stable doing well Assessment & Plan (09/03/2024 11:43 AM FINANCE BUSINESS PARTNER): stable Assessment & Plan (04/30/2024 12:25 PM CDT): Add Breo inhaler. Assessment & Plan (01/24/2024 11:00 AM CDT): stable Chronic sciatica 02/12/2019 Diabetic peripheral neuropathy 02/12/2019 Essential hypertension 02/12/2019 Assessment & Plan (03/03/2025 11:53 AM CDT): BP at target doing well check labs Assessment & Plan (09/03/2024 11:43 AM FINANCE BUSINESS PARTNER): Stable, doing well Assessment & Plan (04/30/2024 12:25 PM CDT): BP at target. Assessment & Plan (01/24/2024 11:01 AM CDT): Bp at target Gastroesophageal reflux disease 02/12/2019 Assessment & Plan (03/03/2025 11:53 AM CDT): Status post dilatation in December doing well no dysphagia Assessment & Plan (04/30/2024 12:25 PM CDT): Stable. No sentinel symptoms Hyperlipidemia 02/12/2019 Assessment & Plan (03/03/2025 11:53 AM CDT): Doing well check lipid Assessment & Plan (04/30/2024 12:25 PM CDT): Stable doing well. Insomnia 02/12/2019 Assessment & Plan (01/24/2024 11:01 AM CDT): Continue medication Lumbar spondylosis 02/12/2019 Menopausal flushing 02/12/2019 Menopausal syndrome 02/12/2019 Recurrent urinary tract infection 02/12/2019 Vaginal discharge 02/12/2019 Migraine 10/04/2018 Fecal incontinence 03/13/2018 IBS (irritable bowel syndrome) 03/13/2018 Primary osteoarthritis involving multiple joints 08/28/2017 Assessment & Plan (09/03/2024 11:44 AM FINANCE BUSINESS PARTNER): Has follow up with ortho Asthma 08/28/2017 Fibromyalgia 08/28/2017 Bladder prolapse, female, acquired 08/28/2017 Rotator cuff syndrome 08/28/2017 Lumbar spinal stenosis 08/28/2017 Macular degeneration 08/28/2017 Type 2 diabetes mellitus with peripheral neuropa thy 08/27/2017 Assessment & Plan (03/03/2025 11:53 AM CDT): A1c slightly higher. Will check labs Assessment & Plan (09/03/2024 11:44 AM FINANCE BUSINESS PARTNER): Doing well Assessment & Plan (01/24/2024 11:00 AM CDT): Stable, A1c victor manuel maria Hx of fracture of humerus 08/27/2017 Hx of fracture of wrist 08/27/2017 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 Nocturia 04/13/2016 Urinary frequency 04/13/2016 Urinary urgency 04/13/2016 Vaginal vault prolapse 03/31/2016 Encounters Date Type Department Care Team Description 03/03/2025 5:57 PM CDT - 03/03/2025 11:59 PM CDT Hospital Encounter [address] [address] Type 2 diabetes mellitus without complication, without long-term current use of insulin (HCC); Essential hypertension; Gastroesophageal reflux disease, unspecified whether esophagitis present; Type 2 diabetes mellitus with peripheral neuropathy (HCC); Mixed hyperlipidemia; Chronic bronchitis, unspecified chronic bronchitis type (HCC) Discharge Disposition: Discharge to home or self care 03/03/2025 11:00 AM CDT Office Visit [facility] [address] [place] [phone] Miguel Beltre MD Type 2 diabetes mellitus without complication, without long-term current use of insulin (HCC) (Primary Dx); Essential hypertension; Gastroesophageal reflux disease, unspecified whether esophagitis present; Type 2 diabetes mellitus with peripheral neuropathy (HCC); Mixed hyperlipidemia; Chronic bronchitis, unspecified chronic bronchitis type (HCC) 02/12/2025 Results Follow-Up [facility] [address] [phone] Miguel Beltre MD SCAN - RADIOLOGY/IMAGING 02/12/2025 Orders Only [facility] [address] [phone] Miguel Beltre MD from Last 3 Months Immunizations Immunization Administration [...] joint disease) COPD (chronic obstructive pulmonary disease) Family History Medical History Relation Name Comments [...] on file Legal Sex Female 12:13 AM FINANCE BUSINESS PARTNER Gender Identity Not on file Sexual Orientation Not on file Obstetrics History Last Filed Vital Signs Vital Sign Reading Time Taken Comments Blood Pressure 137/84 03/03/2025 11:16 AM CDT Pulse 73 03/03/2025 11:16 AM CDT Temperature 36.6 C (97.9 F) 12/24/2018 1:22 PM CDT Respiratory Rate 18 12/24/2018 5:10 PM CDT Oxygen Saturation 100% 12/24/2018 5:10 PM CDT Inhaled Oxygen Concentration - - Weight 94.8 kg (209 lb) 03/03/2025 11:16 AM CDT Height 165.1 cm (5' 5) 03/03/2025 11:16 AM CDT Body Mass Index 34.78 03/03/2025 11:16 AM CDT Plan of Treatment Scheduled Procedures Name Priority Associated Diagnoses Date/Ti me COLONOSCOPY Open Access Encounter for screening colonoscopy Health Maintenance Due Date Last Done Comments Hepatitis C Screening 1955 Dilated Eye Exam 1955 Hepatitis B Screening 1971 Well Visit 65+ 2018 Depression Screening 08/28/2018 08/28/2017 Fall Risk Assessment 08/28/2018 08/28/2017 Foot Exam 08/28/2018 08/28/2017 Zoster Vaccine (2 of 2) 06/06/2020 04/11/2020, 06/07 eGFR 01/23/2025 01/24/2024 Covid-19 Vaccine (8 - Pfizer risk season) 2025 04/18/2024, 07/14/2023, 05/24/2022, Additional history exists Influenza Vaccine (#1) 2025 , 07/14/2023, 05/24/2022, Additional history exists Hemoglobin A1C 09/03/2025 03/03/2025, 08/08, 04/30/2024, Additional history exists Breast Cancer Screening-Mammogram 12/08/2025 11/12/2019, 08/14/2014 Postponed from 11/11/2020 (Patient declined, but will receive in the future) Albumin Creatinine Ratio, Urine 03/03/2026 03/03/2025, 01/24/2024 Lipid Panel 03/03/2026 03/03/2025, 01/24/2024 Osteoporosis Screening-Bone Density Scan 02/12/2027 02/12/2025 Colon Cancer Screening-Colonoscopy 10/09/2029 DTaP/Tdap/Td Vaccine (4 - Td or Tdap) 04/18/2034 04/18/2024, 08/07/2015, 06/07/2015 Pneumococcal vaccine 65+ Completed 10/27/2021, 05/07 Procedures Procedure Name Priority Date/Time Associated Diagnosis Comments ALBUMIN CREATININE RATIO, URINE Routine 03/03/2025 5:57 PM CDT Type 2 diabetes mellitus without complication, without long-term current use of insulin (HCC) Essential hypertension Gastroesophageal reflux disease, unspecified whether esophagitis present Type 2 diabetes mellitus with peripheral neuropathy (HCC) Mixed hyperlipidemia Chronic bronchitis, unspecified chronic bronchitis type (HCC) LIPID PANEL Routine 03/03/2025 11:54 AM CDT Type 2 diabetes mellitus without complication, without long-term current use of insulin (HCC) Essential hypertension Gastroesophageal reflux disease, unspecified whether esophagitis present Type 2 diabetes mellitus with peripheral neuropathy (HCC) Mixed hyperlipidemia Chronic bronchitis, unspecified chronic bronchitis type (HCC) TSH Routine 03/03/2025 11:54 AM CDT Type 2 diabetes mellitus without complication, without long-term current use of insulin (HCC) Essential hypertension Gastroesophageal reflux disease, unspecified whether esophagitis present Type 2 diabetes mellitus with peripheral neuropathy (HCC) Mixed hyperlipidemia Chronic bronchitis, unspecified chronic bronchitis type (HCC) COMPREHENSIVE METABOLIC PANEL Routine 03/03/2025 11:54 AM CDT Type 2 diabetes mellitus without complication, without long-term current use of insulin (HCC) Essential hypertension Gastroesophageal reflux disease, unspecified whether esophagitis present Type 2 diabetes mellitus with peripheral neuropathy (HCC) Mixed hyperlipidemia Chronic bronchitis, unspecified chronic bronchitis type (HCC) POCT HEMOGLOBIN A1C Routine 03/03/2025 11:22 AM CDT Type 2 diabetes mellitus without complication, without long-term current use of insulin (HCC) SCAN - RADIOLOGY/IMAGING 02/12/2025 12:39 PM CDT COMPREHENSIVE METABOLIC PANEL Routine 01/24/2024 11:09 AM CDT Type 2 diabetes mellitus without complication, without long-term current use of insulin (HCC) Encounter for lipid screening for cardiovascular disease Type 2 diabetes mellitus with peripheral neuropathy (HCC) Essential hypertension Chronic bronchitis, unspecified chronic bronchitis type (HCC) Primary insomnia DIAGNOSTIC MAMMOGRAM BILATERAL W DARWIN Schedule Routine, Read Routine (OP Routine) 11/12/2019 10:04 AM CDT Lump of left breast from Last 3 Months or Most Recently Relevant to Health Maintenance Results * Albumin Creatinine Ratio, Urine (03/03/2025 5:57 PM CDT) Albumin Ur 18.3 mg/L Comment: Interpretive Data No reference range established. Current interpretive data was last revised 2018. Creatinine Ur 210.8 mg/dL [facility] Comment: Interpretive Data No reference range established. Current interpretive data was last revised 2018. Albumin Creatinine Ratio, Ur 9 1 - 29 mg/g [facility] Urine 03/03/2025 5:57 PM CDT 03/03/2025 7:19 PM CDT us Miguel Beltre MD LAB URINE ORDERABLES Final Re sult [facility] Department [place] [address] * (ABNORMAL) Lipid panel (03/03/2025 11:54 AM CDT) Triglyceride 211(H) 0 - 150 mg/dL [facility] Cholesterol 269(H) 0 - 200 mg/dL [facility] HDL 39(L) >45 mg/dL [facility] LDL-Calculated 188 mg/dL [facility] CHOL/HDL Risk Ratio 7 Ratio [facility] LDL/HDL Risk Ratio 5 Ratio [facility] Blood 03/03/2025 11:5 4 AM CDT 03/03/2025 12:07 PM CDT us Miguel Beltre MD LAB BLOOD ORDERABLES Final Re sult Performing Organization Address [facility]/ZIP Co de Phone Number MONICA ROBERTODA [address] [facility] [address] * TSH (03/03/2025 11:54 AM CDT) TSH 3.45 0.27 - 4.20 uIU/mL [facility] Blood 03/03/2025 11:5 4 AM CDT 03/03/2025 12:07 PM CDT Miguel Beltre MD LAB BLOOD ORDERABLES Final Re sult Performing Organization Address [facility]/ZIP Co de Phone Number MONICA BROWNING [address] * (ABNORMAL) Comprehensive metabolic panel (03/03/2025 11:54 AM CDT) Glucose 129 74 - 200 mg/dL [facility] BUN 18 18 - 23 mg/dL [facility] Creatinine 1.0 0.7 - 1.3 mg/dL [facility] BUN/Creat Ratio 19 Ratio [facility] Bilirubin, Total 0.4 0.0 - 1.2 mg/dL [facility] AST (SGOT) 35(H) 0 - 32 U/L [facility] ALT (SGPT) 34 10 - 35 U/L [facility] Alkaline phosphatase 94 35 - 104 U/L [facility] Calcium 9.3 8.8 - 10.2 mg/dL [facility] Sodium 139 135 - 145 mEq/L [facility] Potassium 4.9 3.5 - 5.1 mEq/L [facility] Chloride 100 98 - 107 mEq/L [facility] CO2 29.7 22.0 - 32.0 mEq/L [facility] Anion Gap 9 3 - 12 mEq/L [facility] Total Protein 6.6 6.0 - 8.1 g/dL [facility] Albumin 4.1 3.5 - 5.2 g/dL [facility] Globulin 2.5 g/dL [facility] Albumin/Globulin 1.6 Ratio [facility] eGFR 61.31 [facility] Blood 03/03/2025 11:5 4 AM CDT 03/03/2025 12:07 PM CDT us Miguel Beltre MD LAB BLOOD ORDERABLES Final Re sult MONICA BROWNING [address] [place] [phone] * (ABNORMAL) POCT hemoglobin A1c (03/03/2025 11:22 AM CDT) [facility] Hemoglobin A1C, POC 6.3(A) 4.0 - 5.6 % Blood 03/03/2025 11:2 2 AM CDT us Miguel Beltre MD POINT OF CARE TEST ORDERABLES Final Result * SCAN - RADIOLOGY/IMAGING (02/12/2025 12:39 PM CDT) Anatomical Region Laterality Modality Other us Miguel Beltre MD Final Result * (ABNORMAL) Comprehensive metabolic panel (01/24/2024 11:09 [...] - 01/25/2024 3:35 AM CDT Performed at: 01 - [place] [id number] Ash Handler: Kan Keane PhD, Phone: [phone] us Miguel Beltre MD LAB BLOOD ORDERABLES Final Re sult [facility] - 01 * Diagnostic Mammogram Bilateral W Darwin (11/12/2019 [...] LEFT breast was performed by a trained printing sales representative and by Dr. Valdez. BREAST PARENCHYMAL COMPOSITION: [...] LEFT breast was performed by a trained printing sales representative and by Dr. Valdez. BREAST PARENCHYMAL COMPOSITION: [...] Recently Relevant to Health Maintenance Insurance [facility]ICARE [facility] TRADITIONAL COMMERCIAL [employer] [facility] MDCR HMO REF [place] [id number] [facility] MEDICARE ADVANTAGE BLUE TRADITIONAL OOS [address] MEDICARE ADVANTAGE [address] MEDICARE ADVANTAGE Care Teams Senior Technical Specialist Relationship Specialty Start Date End Date Miguel Beltre MD PCP - General Internal Medicine 01/24/24
--- OUTSIDE RECORDS SUMMARY | 2025-04-19 15:14 | XMS_ITS | Clinical Summary ---
Author Organization [facility] Address [address] [place] [address] Care Team Providers Care Facilities Officer Name Role Phone Tarun Lerma MD Primary Care Provider [phone] Source Comments [facility],non-owned Affiliates and Associated Physician Practices is amultiple site organization consisting of ambulatory clinics and hospital sitesin [place], [place], [place] and [place]. This disclosure is being madepursuant to the Care Everywhere program and may not contain all information available regarding this patient. Last updated 18.[facility] [employer] Allergies Active Allergy Reactions Criticality Noted Date [...] on file Legal Sex Female 6:15 AM MICRO COMPUTER DATA PROCESSOR Gender Identity Not on file Sexual Orientation Not on file Last Filed Vital Signs Vital Sign Reading Time Taken Comments Blood Pressure 123/75 03/14/2017 3:28 PM CDT Pulse 70 07/26/2016 12:59 PM MICRO COMPUTER DATA PROCESSOR Temperature 36.8 C (98.2 F) 07/05/2016 2:31 PM MICRO COMPUTER DATA PROCESSOR Respiratory Rate 18 05/20/2016 11:59 AM CDT Oxygen Saturation 98% 07/26/2016 12:59 PM MICRO COMPUTER DATA PROCESSOR Inhaled Oxygen Concentration - - Weight 90.7 [...] 03/07/2023 6, 05/20/2016, 05/19/2016, Additional history exists DEPRESSION SCREENING 08/07/2024 MEDICARE AWV CALENDAR YEAR 2024 COVID-19 VACCINE ( season) 2025 INFLUENZA VACCINE (#1) 2025 04/07/2017 Respiratory Syncytial Virus (RSV) Vaccine [...] this topic Medical Devices Implanted Type Area Director Human Services Device Identifier Shelf Expiration Date Model / Serial / Lot Mesh Srg Upsylon 35.4cm [id number] 2.8sq Implanted:Qty: 1 on 05/19/2016 by Preeti Rudolph MD at [facility] 02/03/2019 [id number] / / [id number] Procedures Procedure Name Priority Date/Time Associated Diagnosis Comments GLUCOSE - POINT OF CARE Routine 05/20/2016 8:13 AM CDT from Last 3 Months or Most Recently Relevant to Health Maintenance Results * (ABNORMAL) GLUCOSE - POINT OF CARE (05/20/2016 8:13 AM CDT) [facility] Glucose WB/POC 111(H) 70 - 106 mg/dL 05/20/2016 11:45 AM CDT [facility] Blood BLOOD SPECIMEN / Unknown 05/20/2016 8:13 AM CDT 05/20/2016 11:45 AM CDT Preeti Rudolph MD LAB - POINT OF CARE ORDERABLE S Final Result Performing Organization Address City/State/[facility] Co de Phone Number [facility] [address] [place] [address] from Last 3 Months or Most Recently Relevant to Health Maintenance Insurance [facility] ADV [facility]IC[facility] ADV Advance Directives * Full Code (Latest Code Status on File) Date Activated Date Inactivated Comments 05/19/2016 2:39 PM 05/20/2016 6:04 PM Care Teams Facilities Officer Relationship Specialty Start Date End Date Tarun Lerma MD [address] [place] [phone] PCP - General 10/20/22
--- NOTE | 2025-04-19 15:49 | ED.LOWEXIN ---
HPI - Extremity Injury (Lower) General Chief Complaint: Extremity Injury, Lower Stated Complaint: ankle/foot injury Time Seen by Provider: 04/19/25 14:52 Source: patient Mode of arrival: ambulatory Limitations: no limitations History of Present Illness HPI Narrative: Patient is 69-year-old female who presents the ED with report of right foot/ankle pain. Patient reports she was walking her house when her right foot rolled/inverted on her. She fell to the ground. She did hit her head in the posterior scalp but denied LOC. She is not on anticoagulation. C/o pain/swelling/bruising to R dorsal foot/lateral ankle. States she has had trouble bearing weight due to the pain. She takes tramadol at home and tried this without improvement. Denies numbness, neck or back pain, dizziness, lightheadedness. Related Data Home Medications ?Medication ?Instructions ?Recorded ?Confirmed ?Last Taken ?Type albuterol sulfate 0.63 mg/3 mL 0.63 mg inhalation Q4-6H 08/26/22 01/07/25 10/08/24 History solution for nebulization atenolol 50 mg tablet 100 mg PO DAILY 08/26/22 01/07/25 10/09/24 History srpqlhwhbv-qmdqkyihmdcbv-sbrnlbfg 1 tablet PO Q6H PRN Migraine 08/26/22 01/07/25 Unknown History 50 mg-325 mg-40 mg tablet Headache calcium phosphate-vitamin D3 600 1 tablet PO DAILY 08/26/22 01/07/25 10/08/24 History mg-125 unit tablet multivitamin 1 tablet PO DAILY 08/26/22 01/07/25 10/08/24 History multivitamin with folic acid 400 1 tablet PO DAILY 08/26/22 01/07/25 10/08/24 History mcg tablet (Tab-A-Parker) omeprazole 40 mg capsule,delayed 40 mg PO DAILY 08/26/22 01/07/25 10/08/24 History release pioglitazone 30 mg tablet 30 mg PO DAILY 08/26/22 01/07/25 10/08/24 History tramadol 50 mg tablet 50 mg PO Q6H PRN Migraine Headache 08/26/22 01/07/25 10/09/24 History trazodone 50 mg tablet 50 mg PO QHS 08/26/22 01/07/25 10/08/24 History venlafaxine 150 mg 150 mg PO QAM 08/26/22 01/07/25 10/09/24 History capsule,extended release 24 hr diclofenac sodium 75 mg 75 mg PO BID 06/05/23 01/07/25 10/08/24 History tablet,delayed release losartan 50 mg tablet 50 mg PO DIRECTED 06/05/23 01/07/25 10/08/24 History sulfasalazine 500 mg 500 mg PO DIRECTED 06/05/23 01/07/25 10/08/24 History tablet,delayed release Allergies Allergy/AdvReac Type Severity Reaction Status Date / Time ciprofloxacin Allergy Intermediate HIVES/RASH Verified 04/19/25 14:06 amoxicillin Allergy Unknown Rash Verified 04/19/25 14:06 cephalexin Allergy Unknown Rash Verified 04/19/25 14:06 clavulanic acid Allergy Unknown Rash Verified 04/19/25 14:06 Penicillins Allergy Unknown Rash Verified 04/19/25 14:06 Review of Systems Review of Systems: All systems reviewed & are unremarkable except as noted in HPI. All systems reviewed & are unremarkable except as noted in HPI and below PMFSH Past Medical History Medical History Obese Hiatal hernia Schatzki's ring Diarrhea IBS (irritable bowel syndrome) COPD (chronic obstructive pulmonary disease) HTN (hypertension) GERD (gastroesophageal reflux disease) Eroded bladder suspension mesh Diabetes mellitus Surgical History Surgical History History of total abdominal hysterectomy H/O tubal ligation History of orthopedic surgery H/O ovarian cystectomy H/O: hysterectomy Family History Family History Mother Hypertension Depression Diabetes mellitus Osteoporosis Social History Social History Smoking status: Never smoker Second hand tobacco smoke exposure: No Alcohol intake: never Substance use: current Substance use type: marijuana Other substance usage details: patient smokes marijuana daily Living arrangements: with family Gender identity (if verbalized by the patient): Female Spiritual care concerns: No Exam Narrative: GENERAL: Elderly but well appearing, obese with BMI of 33.4, non-toxic, in no acute distress. HEAD: Normocephalic, atraumatic. NECK: No midline spinal tenderness. No palpable bony deformities or step offs. Sensation intact. RESPIRATORY: Airway patent, respirations nonlabored. CARDIOVASCULAR: Regular rate and rhythm. Pedal pulses intact and easily palpable MUSCULOSKELETAL: Moves all extremities. No gross deformities. R dorsal foot with diffuse swelling/bruising/tenderness. Mild swelling throughout R lateral malleoli w/ tenderness. SKIN: Warm, dry, normal color. NEURO: A&O X3. Speech clear. No ataxic movements. PSYCHIATRIC: Appropriate mood and affect. Normal interaction. Course Vital Signs Vital signs: Vital Signs Temperature 98.2 F 04/19/25 14:03 Pulse Rate 70 04/19/25 14:03 Respiratory Rate 16 04/19/25 14:03 Blood Pressure 132/84 04/19/25 14:03 Pulse Oximetry 95 04/19/25 14:03 Oxygen Delivery Room Air 04/19/25 14:03 Temperature 98.2 F 04/19/25 14:08 Pulse Rate 70 04/19/25 14:08 Respiratory Rate 18 04/19/25 14:08 Blood Pressure 132/84 04/19/25 14:03 Pulse Oximetry 96 04/19/25 14:08 Oxygen Delivery Room Air 04/19/25 14:08 MDM - Extremity Injury (Lower) MDM Narrative Medical decision making narrative: Patient presented to ED status post ground level mechanical fall, pain to right foot/ankle, head injury, negative LOC. vital signs are stable upon arrival. Patient in no acute distress. Neurologically intact. No focal deficits. She is not on any anticoagulation. CT brain and cervical spine negative. X-ray of right foot/ankle also negative, no evidence of fracture. Suspicious for foot contusion/sprain. Patient placed in Sam bandage. Given pain control. Otherwise safe for discharge home at this time. Discussed rice therapy, continued pain control at home. Given strict return precautions. She is in agreement with plan, feels comfortable going home. She has a walker and kneeling scooter that she can use at home. at bedside will assist her. Patient discharged in stable condition. Medical Records Attestation: I reviewed the patient's medical records. Imaging Data Attestation: I personally reviewed and interpreted this imaging study as follows: Radiologist's impression: ITS Impressions Ankle X-Ray 04/19/25 14:41 Impression: No acute fracture or malalignment. Foot X-Ray 04/19/25 14:43 Impression: No acute fracture or malalignment. Head CT 04/19/25 15:06 Impression: 1.No acute intracranial abnormality. Cervical Spine CT 04/19/25 15:18 Impression: No acute abnormality. Discharge Plan Discharge Clinical Impression: Fall from ground level Contusion of right foot Qualifiers: Encounter type: initial encounter Qualified Code(s): S90.31XA - Contusion of right foot, initial encounter Strain of right ankle and foot Qualifiers: Encounter type: initial encounter Qualified Code(s): S96.911A - Strain of unspecified muscle and tendon at ankle and foot level, right foot, initial encounter Patient Disposition: Home Condition: Stable Instructions: Antibiotic Form, Foot Contusion (ED), Foot Sprain (ED), P.R.I.C.E. Treatment (ED) Additional Instructions: Keep leg elevated as much as possible, recommend frequent icing to foot/ankle. Recommend Sam bandage for compression and support. Recommend Tylenol, ibuprofen as needed for pain. [place] as needed for more severe pain. Follow-up with your primary care doctor for further evaluation. Return to the ED if you experience worsening or severe pain, numbness, recurrent fall or injury, severe dizziness, passing out, or any other symptoms of concern. Patient Language: Mexican Prescriptions: New hydrocodone-acetaminophen 5-325 mg tablet 1 tablet PO Q6H PRN (Reason: pain) Qty: 5 0RF No Action albuterol sulfate 0.63 mg/3 mL solution for nebulization 0.63 mg inhalation Q4-6H atenolol 50 mg tablet 100 mg PO DAILY lnqvioehth-ftevqznaezitq-btqg 50-325-40 mg tablet 1 tablet PO Q6H PRN (Reason: Migraine Headache) calcium phosphate-vitamin D3 600-125 mg-unit tablet 1 tablet PO DAILY multivitamin Tablet 1 tablet PO DAILY omeprazole 40 mg capsule,delayed release(DR/EC) 40 mg PO DAILY pioglitazone 30 mg tablet 30 mg PO DAILY multivitamin with folic acid [Tab-A-Parker] 400 mcg tablet 1 tablet PO DAILY tramadol 50 mg tablet 50 mg PO Q6H PRN (Reason: Migraine Headache) trazodone 50 mg tablet 50 mg PO QHS venlafaxine 150 mg capsule,extended release 24hr 150 mg PO QAM dicyclomine 10 mg capsule 10 mg PO TID PRN (Reason: abdominal pain, diarrhea) Qty: 90 0RF losartan 50 mg tablet 50 mg PO DIRECTED sulfasalazine 500 mg tablet,delayed release (DR/EC) 500 mg PO DIRECTED diclofenac sodium 75 mg tablet,delayed release (DR/EC) 75 mg PO BID Follow-up/Referrals: Maria Guadalupe,Tarun Yanes MD [Primary Care Provider, Internal Medicine] Time of Disposition: 16:02
[2025-04-19] MEDS: HYDROcodone/acetaminophen (*CRX) 5-325 MG TABLET 1 TAB PO (16:07)
== END 2025-04-19 16:12 | disposition home or self-care (01) ==
PROVIDERS: Emergency Provider Physician Assistant; PCP Internal Medicine
DX: S90.31XA Contusion of right foot, initial encounter (principal); S96.911A Strain of unspecified muscle and tendon at ankle and foot level, right foot, initial encounter; J44.9 Chronic obstructive pulmonary disease, unspecified; I10 Essential (primary) hypertension; E11.9 Type 2 diabetes mellitus without complications; Z79.891 Long term (current) use of opiate analgesic; X50.0XXA Overexertion from strenuous movement or load, initial encounter
CPT/HCPCS: 70450; 72125; 73610; 73630; 99284; A9270